=== PATIENT | female | born 1990 | race Caucasian/White ===

== ENCOUNTER 2019-02-28 09:18 | Outpatient (CLI) | payer MEDICAID | END 2019-02-28 09:19 | disposition critical access hospital (66) | LOC: EMS 09:18 | PROVIDERS: ATTEND Surgery | DX: R50.9 Fever, unspecified (principal); R04.2 Hemoptysis | CPT/HCPCS: A0425; A0429; A0999 ==

== ENCOUNTER 2019-02-28 09:37 | Inpatient (IN) | payer MEDICAID ==
[2019-02-28] MEDS ORDERED: SODIUM CHLORIDE 0.9% 1,000 ML IV ONE ×3 (09:49→15:22)
--- NOTE | 2019-02-28 09:59 | ED Physician Documentation ---
History of Present Illness - Stated complaint Stated Complaint: N/V - Chief complaint Chief Complaint: General - History obtained from History obtained from: Patient, EMS - History of Present Illness Timing: Last night Pain level max: 8 Pain level now: 8 Improved by: rest Worsened by: moving, coughing - Additonal information Additional information: 28-year-old female presents to the emergency department stating that she had a fever last night, coughing and sore throat today. Nausea, posttussive emesis and has abdominal pain now. She states that she may be she is unsure. No diarrhea. No constipation. No vaginal bleeding or discharge. Review of Systems Constitutional: reports: Fever, Chills Cardiac: denies: Chest pain / pressure GI: denies: Diarrhea Skin: denies: Rash Musculoskeletal: denies: Neck pain, Back pain Neurologic: denies: Focal weakness, Numbness, Seizure, Confused, Headache PD PAST MEDICAL HISTORY - Past Medical History Past Medical History: Yes Psych: Depression, Anxiety, Bipolar disorder - Past Surgical History Past Surgical History: Yes HEENT: Tonsil/Adenoidectomy - Present Medications Home Medications: Ambulatory Orders Medication Instructions Recorded Confirmed Ondansetron Odt [Zofran] 4 mg TL Q6H PRN #10 tablet 01/02/15 - Allergies Allergies/Adverse Reactions: Allergies Allergy/AdvReac Type Severity Reaction Status Date / Time lamotrigine [From Lamictal] Allergy Rash Verified 01/02/15 19:47 - Living Situation Living Arrangement: reports: At home - Social History Does the pt smoke?: No Smoking Status: Never smoker Does the pt drink ETOH?: No Does the pt have substance abuse?: No - Family History Family history: reports: Non contributory - Immunizations Immunizations are current?: Yes - POLST Patient has POLST: No PD ED PE NORMAL - Vitals Vital signs reviewed: Yes - General General: Alert and oriented X 3, No acute distress, Well developed/nourished - HEENT HEENT: PERRL, Ears normal, Moist mucous membranes, Other (Mild posterior oropharyngeal erythema without tonsillar exudates. Uvula midline. No trismus. Normal phonation) - Neck Neck: Supple, no meningeal sign, No bony TTP, No adenopathy - Cardiac Cardiac: RRR, Strong equal pulses - Respiratory Respiratory: No respiratory distress, Clear bilaterally - Abdomen Abdomen: Soft, Non distended, Other (Soft mildly tender diffusely, no peritoneal signs) - Back Back: No spinal TTP - Derm Derm: Warm and dry - Extremities Extremities: No edema, No calf tenderness / cord - Neuro Neuro: Alert and oriented X 3 - Psych Psych: Normal mood, Normal affect Results - Vitals Vitals: Vital Signs - 24 hr 02/28/19 02/28/19 02/28/19 09:40 12:22 12:49 Temperature 37.5 C 37.8 C H Heart Rate 78 123 H 104 H Respiratory 18 20 18 Rate Blood Pressure 124/86 H 107/62 116/67 O2 Saturation 99 99 97 02/28/19 02/28/19 14:18 16:00 Temperature Heart Rate 108 H 87 Respiratory 18 18 Rate Blood Pressure 97/63 120/84 H O2 Saturation 95 97 Oxygen O2 Source Room air - Labs Labs: Laboratory Tests 02/28/19 02/28/19 02/28/19 09:50 09:50 09:50 WBC 16.8 H RBC 4.52 Hgb 13.2 Hct 40.4 MCV 89.4 MCH 29.3 MCHC 32.8 RDW 14.8 Plt Count 257 MPV 7.5 L Neut # (Auto) 15.6 H Lymph # (Auto) 0.6 L [place] # (Auto) 0.6 Eos # (Auto) 0.0 Baso # (Auto) 0.0 Absolute Nucleated RBC 0.00 Nucleated RBC % 0.0 Sodium 135 Potassium 3.5 Chloride 99 L Carbon Dioxide 26 Anion Gap 10.0 BUN 11 Creatinine 0.7 Estimated GFR (MDRD) 100 Glucose 106 H Lactic Acid Calcium 8.9 Total Bilirubin 0.7 AST 29 ALT 23 Alkaline Phosphatase 72 Total Protein 7.5 Albumin 4.7 Globulin 2.8 Albumin/Globulin Ratio 1.7 Lipase 33 Serum HCG, Qual NEGATIVE Urine Color Urine Clarity Urine pH Ur Specific [place] Urine Protein Urine Glucose (UA) Urine Ketones Urine Occult Blood Urine Nitrite Urine Bilirubin Urine Urobilinogen Ur Leukocyte Esterase Ur Microscopic Review Urine Culture Comments Group A Strep Rapid 02/28/19 02/28/19 02/28/19 09:50 11:25 16:30 WBC RBC Hgb Hct MCV MCH MCHC RDW Plt Count MPV Neut # (Auto) Lymph # (Auto) [place] # (Auto) Eos # (Auto) Baso # (Auto) Absolute Nucleated RBC Nucleated RBC % Sodium Potassium Chloride Carbon Dioxide Anion Gap BUN Creatinine Estimated GFR (MDRD) Glucose Lactic Acid 0.8 Calcium Total Bilirubin AST ALT Alkaline Phosphatase Total Protein Albumin Globulin Albumin/Globulin Ratio Lipase Serum HCG, Qual Urine Color YELLOW Urine Clarity CLEAR Urine pH 7.5 Ur Specific [place] 1.015 Urine Protein NEGATIVE Urine Glucose (UA) NEGATIVE Urine Ketones TRACE Urine Occult Blood NEGATIVE Urine Nitrite NEGATIVE Urine Bilirubin NEGATIVE Urine Urobilinogen 1 (NORMAL) Ur Leukocyte Esterase NEGATIVE Ur Microscopic Review NOT INDICATED Urine Culture Comments NOT INDICATED Group A Strep Rapid Negative - Rads (name of study) CT abd/pelvis Radiology: Prelim report reviewed, EMP read contemporaneously, See rad report (Malpositioned IUD) PD MEDICAL DECISION MAKING - ED course Complexity details: reviewed results, re-evaluated patient, considered differential, d/w patient ED course: 28-year-old female presents to the emergency department with fevers, coughing sore throat and abdominal pain. Initially concern for possible appendicitis given her leukocytosis and abdominal pain, there appears to be a malpositioned IUD in the uterus with possible perforation. Given IV antibiotics and contacted Dr. Gillette, gynecology retail personal banker who will come and evaluate the patient when he is done in the OR. Dr. Gillette to take the patient to the OR, concern for perforated uterus. This document was made in part using voice recognition software. While efforts are made to proofread this document, sound alike and grammatical errors may occur. Departure - Departure Disposition: ED Transfer to [facility] Clinical Impression: Fever Qualifiers: Fever type: unspecified Qualified Code(s): R50.9 - Fever, unspecified Malpositioned IUD Qualifiers: Encounter type: initial encounter Qualified Code(s): T83.32XA - Displacement of intrauterine contraceptive device, initial encounter Condition: Stable Discharge Date/Time: 02/28/19 17:07
[2019-02-28 10:04] LABS: BASOPHILS % (AUTO) 0.2 %; EOSINOPHILS % (AUTO) 0.2 %; HGB - HEMOGLOBIN 13.2 g/dL (12.0-16.0); LYMPHOCYTES # (AUTO) 0.6 10^3/uL (1.5-3.5); LYMPHOCYTES % (AUTO) 3.3 %; MEAN CORPUSCULAR HEMOGLOBIN 29.3 pg (27.0-31.0); MEAN CORPUSCULAR HGB CONC 32.8 g/dL (32.0-36.0); MEAN CORPUSCULAR VOLUME 89.4 fL (81.0-99.0); MEAN PLATELET VOLUME 7.5 fL (7.9-10.8); MONOCYTES # (AUTO) 0.6 10^3/uL (0.0-1.0); MONOCYTES % (AUTO) 3.4 %; NEUTROPHILS # (AUTO) 15.6 10^3/uL (1.5-6.6); NEUTROPHILS % (AUTO) 92.9 %; PLT - PLATELET COUNT 257 10^3/uL (130-450); RED BLOOD COUNT 4.52 10^6/uL (4.20-5.40); RED CELL DISTRIBUTION WIDTH 14.8 % (12.0-15.0); WHITE BLOOD COUNT 16.8 x10^3/uL (4.8-10.8)
[2019-02-28 10:22] LABS: ALBUMIN 4.7 g/dL (3.2-5.5); ALBUMIN/GLOBULIN RATIO 1.7 (1.0-2.2); BILIRUBIN,TOTAL 0.7 mg/dL (0.2-1.0); CALCIUM 8.9 mg/dL (8.5-10.3); CREATININE 0.7 mg/dL (0.4-1.0); TOTAL PROTEIN 7.5 g/dL (6.7-8.2)
[2019-02-28] MEDS ORDERED: ONDANSETRON 4 MG/2 ML VIAL IVP STA ×2 (10:35→12:28)
[2019-02-28] MEDS ORDERED: MORPHINE 2 MG/ML SYRINGE IVP STA (10:35)
[2019-02-28 10:44] LABS: HCG,QUALITATIVE BLOOD NEGATIVE
[2019-02-28 11:37] LABS: BILIRUBIN,URINE NEGATIVE (NEGATIVE); GLUCOSE, URINE (UA) NEGATIVE (NEGATIVE); KETONES,URINE (UA) TRACE mg/dL (NEGATIVE); LEUKOCYTE ESTERASE, URINE NEGATIVE (NEGATIVE); NITRITE,URINE NEGATIVE (NEGATIVE); OCCULT BLOOD,URINE NEGATIVE (NEGATIVE); PH,URINE 7.5 PH (5.0-7.5); PROTEIN,URINE NEGATIVE (NEGATIVE); UROBILINOGEN,URINE 1 (NORMAL) E.U./dL (NORMAL)
[2019-02-28 11:39] LABS: CLARITY,URINE CLEAR (CLEAR)
--- NOTE | 2019-02-28 11:57 | XRAY Report ---
Reason: cough Procedure Date: 02/28/2019 Accession Number: [id number] / [id number] Procedure: XR - Chest 2 View X-Ray CPT Code: 94234 FULL RESULT: EXAM: CHEST RADIOGRAPHY EXAM DATE: 02/28/2019 11:01 AM. CLINICAL HISTORY: Cough. COMPARISON: CHEST 2 VIEW PA/LAT 12/14/2014 4:27 PM. TECHNIQUE: 2 views. FINDINGS: Lungs/Pleura: No focal opacities evident. No pleural effusion. No pneumothorax. Normal volumes. Mediastinum: Heart and mediastinal contours are unremarkable. Other: The bones are qualitatively osteopenic; this limits evaluation for underlying fractures or masses. IMPRESSION: No acute cardiopulmonary abnormality. RADIA
[2019-02-28] MEDS ORDERED: HYDROmorphone 1 MG/ML CARPUJECT IVP STA ×4 (12:28→16:14)
[2019-02-28] MEDS ORDERED: IOVERSOL 320 100 ML VIAL IVP ONE (12:50)
[2019-02-28] MEDS: KETOROLAC 30 MG/ML VIAL IVP STA ×2 (13:37→13:40)
[2019-02-28] MEDS ORDERED: PIPERACILLIN/TAZOBACTAM 4.5 GM in SODIUM CHLORIDE 0.9% MINIBAG 100 ML IV STA (13:42)
--- NOTE | 2019-02-28 13:43 | CT Report ---
Reason: RLQ abd pain Procedure Date: 02/28/2019 Accession Number: [id number] / [id number] Procedure: CT - Abdomen/Pelvis W CPT Code: FULL RESULT: EXAM: CT ABDOMEN AND PELVIS EXAM DATE: 02/28/2019 01:08 PM. CLINICAL HISTORY: Right lower quadrant abdominal pain. COMPARISONS: None. TECHNIQUE: Routine helical CT imaging was performed through the abdomen and pelvis. IV contrast: 100 mL Optiray 320. Enteric contrast: No. Reconstructions: Coronal and sagittal. In accordance with CT protocol optimization, one or more of the following dose reduction techniques were utilized for this exam: automated exposure control, adjustment of mA and/or KV based on patient size, or use of iterative reconstructive technique. FINDINGS: Lung Bases: Unremarkable. Liver: Normal. No masses. Gallbladder/Bile Ducts: Status post cholecystectomy with not unexpected prominence of the intrahepatic and extrahepatic biliary ductal system. Spleen: Normal. Pancreas: Normal. Adrenal Glands: Normal. Kidneys: Normal. No masses or hydronephrosis. Peritoneal Cavity/Bowel: No bowel obstruction. No free fluid, free air or adenopathy. No masses or acute inflammatory process. The appendix is not definitely visualized. Pelvic Organs: The intrauterine device is malpositioned with the long stem portion lodged within the myometrial wall and there is surrounding increased enhancement, hyperemia versus bleeding. Portions of the intrauterine device reached the subserosal layer, but there is no definite protrusion past the outer confines of the uterine body and there is no definite nearby abscess or free air. Vasculature: No aneurysms or other significant abnormality. Bones: No significant abnormality. Other: None. IMPRESSION: Malpositioned IUD. CRITICAL RESULT: The findings were discussed with Dr. Lozoya on 02/28/2019 at 1:30 PM. REGGIE
[2019-02-28] MEDS ORDERED: LACTATED RINGERS 1,000 ML IV STA (15:22)
--- NOTE | 2019-02-28 16:10 | ANESTHESIA ---
Pre-Anesthesia VS, & Labs - Diagnosis N/V, Abdominal pain - Procedure Hysteroscopy, possible laparotomy Vital Signs: Temp Pulse Resp BP Pulse Ox 37.8 C H 108 H 18 97/63 95 02/28/19 12:22 02/28/19 14:18 02/28/19 14:18 02/28/19 14:18 02/28/19 14:18 Height 5 ft 2 in Weight (kg) 52.163 kg Body Mass Index 21.0 - NPO >8 hours - Is Patient ?: No (-HCG 02/28) - Lab Results Current Lab Results: Laboratory Tests 02/28/19 09:50: Serum HCG, Qual NEGATIVE 02/28/19 09:50: Sodium 135, Potassium 3.5, Chloride 99 L, Carbon Dioxide 26, Anion Gap 10.0, BUN 11, Creatinine 0.7, Estimated GFR (MDRD) 100, Glucose 106 H, Calcium 8.9, Total Bilirubin 0.7, AST 29, ALT 23, Alkaline Phosphatase 72, Total Protein 7.5, Albumin 4.7, Globulin 2.8, Albumin/Globulin Ratio 1.7, Lipase 33 02/28/19 09:50: WBC 16.8 H, RBC 4.52, Hgb 13.2, Hct 40.4, MCV 89.4, MCH 29.3, MCHC 32.8, RDW 14.8, Plt Count 257, MPV 7.5 L, Neut # (Auto) 15.6 H, Lymph # (Auto) 0.6 L, [place] # (Auto) 0.6, Eos # (Auto) 0.0, Baso # (Auto) 0.0, Absolute Nucleated RBC 0.00, Nucleated RBC % 0.0 Fish Bones: 02/28/19 09:50 02/28/19 09:50 Home Medications and Allergies Active Medications Lactated Ringer's (Lr) 1,000 mls @ 150 mls/hr IV .Q6H40M STA Stop: 02/28/19 22:01 Last Admin: 02/28/19 15:33 Dose: 150 mls/hr Allergies/Adverse Reactions: Allergies Allergy/AdvReac Type Severity Reaction Status Date / Time lamotrigine [From Lamictal] Allergy Rash Verified 01/02/15 19:47 Anes History & Medical History - Anesthetic History Anesthesia Complications: reports: No previous complications Family history of Anesthesia Complications: Denies Family history of Malignant Hyperthermia: Denies - Medical History Cardiovascular: reports: None Pulmonary: reports: Asthma Gastrointestinal: reports: Other (recent N/V) Urinary: reports: None Smoking Status: Never smoker Other Past Medical History: cutter - Surgical History General: Cholecystectomy Eyes Ears Nose Throat (EENT): Tonsil/Adenoidectomy Exam General: Alert, Oriented x3 Dental: WNL, Other (currently has msore throat) Mouth Openin Fingerbreadth Neck Mobility: Normal Mallampati classification: II Thyromental Distance: 4-6 cm Respiratory: Lungs clear, Normal breath sounds, No respiratory distress, No accessory muscle use Cardiovascular: Regular rate Neurological: Normal speech Mental/Cognitive Status: Alert/Oriented X3, Normal for patient Cognitive Status: Within normal limits Plan Anesthesia Type: General Consent for Procedure(s) Verified and Reviewed: Yes Code Status: Attempt Resuscitation ASA classification: 2-Mild systemic disease Is this case an emergency?: Yes
[2019-02-28] MEDS ORDERED: LIDOCAINE-MPF 2% 5 ML VIAL IM ONE (16:55)
[2019-02-28] MEDS ORDERED: NEOSTIGMINE 1 MG/1 ML 10 ML MDV IVP ONE (16:55)
[2019-02-28] MEDS ORDERED: ROCURONIUM 50 MG/5 ML VIAL IVP ONE (16:55)
[2019-02-28] MEDS ORDERED: MIDAZOLAM 2 MG/2 ML VIAL IVP ONE (16:55)
[2019-02-28] MEDS ORDERED: ONDANSETRON 4 MG/2 ML VIAL IVP ONE (16:55)
[2019-02-28] MEDS ORDERED: PROPOFOL 200 MG/20 ML VIAL IVP ONE (16:55)
[2019-02-28] MEDS ORDERED: DEXAMETHASONE 4 MG/ML VIAL IVP ONE (16:55)
[2019-02-28] MEDS ORDERED: GLYCOPYRROLATE 1 MG/5 ML VIAL IVP ONE (16:55)
[2019-02-28] MEDS ORDERED: ACETAMINOPHEN 1,000 MG/100 ML 100 ML IV ONE (16:55)
[2019-02-28] MEDS ORDERED: fentaNYL 100 MCG/2 ML VIAL IVP ONE (16:55)
[2019-02-28] MEDS ORDERED: LACTATED RINGERS 500 ML IV ONE (16:55)
[2019-02-28] MEDS ORDERED: BUPIVACAINE 0.25%-EPI 1:200000 PF 30 ML VIAL ONE ×2 (17:18→17:56)
[2019-02-28] MEDS ORDERED: LACTATED RINGERS 1,000 ML IV ONE ×2 (17:37→19:01)
[2019-02-28] MEDS ORDERED: BUPIVACAINE 0.25%-EPI 1:200000 PF 10 ML VIAL SUBQ ONE (17:45)
[2019-02-28] MEDS ORDERED: BUPIVACAINE 0.25%-EPI 1:200000 PF 30 ML VIAL SUBQ ONE ×2 (18:02)
--- NOTE | 2019-02-28 19:19 | OPERATIVE REPORT ---
Operative Report - General Procedure Date: 02/28/19 Planned Procedure: Hysterscopy removal of the Mirena, Laprocsopy Pre-Op Diagnosis: Abdominal Pain Mal placed IUD R/O perforation Procedure Performed: Hysterscopic removal of Mirena IUD, Laproscopy. Post Op Diagnosis: Same - Procedure Note Primary Surgeon: heather Gillette MD Anesthesia Provider: Rosie Flores CRNA Anesthesia Technique: General ET tube Pathology: None IV Fluids (mL): 1,100 Estimated Blood Loss (mL): 10 Urine Output (mL): 450 Findings: IUD was crossed placed in the uterus. Arm in direct contact with the [place]. - Other Other Information/Narrative: [id number]
[2019-02-28] MEDS ORDERED: PIPERACILLIN/TAZOBACTAM 4.5 GM in SODIUM CHLORIDE 0.9% MINIBAG 100 ML IV SCH (20:00)
[2019-02-28] MEDS ORDERED: LACTATED RINGERS 1,000 ML IV SCH (20:00)
[2019-02-28] MEDS: ACETAMINOPHEN 500 MG TABLET PO SCH (20:51)
[2019-02-28] MEDS: KETOROLAC 30 MG/ML VIAL IVP SCH (20:52)
[2019-02-28] MEDS: oxyCODONE 5 MG TABLET PO PRN (21:47)
[2019-02-28] MEDS: SIMETHICONE CHEW 80 MG TABLET PO SCH (22:42)
[2019-02-28] MEDS: DOCUSATE SODIUM 100 MG CAPSULE PO SCH (22:42)
[2019-02-28] MEDS: PIPERACILLIN/TAZOBACTAM 4.5 GM in SODIUM CHLORIDE 0.9% MINIBAG 100 ML IV SCH (22:43)
[2019-02-28] MEDS ORDERED: SODIUM CHLORIDE FLUSH 0.9% 10 ML SYRINGE ONE (22:54)
--- NOTE | 2019-02-28 23:59 | CONSULTATION NOTE ---
Referring Provider Name of Referring Provider:: Dr Ivan Mustafa Consult Date: 02/28/19 (Medical Management: Leukocytosis) Chief Complaint - Chief Complaint Chief Complaint: generaized bodyaches History of Present Illness - Admitted From Admitted From:: [facility] ED - History Obtained From Records Reviewed: yes History obtained from: patient - History of Present Illness HPI Comment/Other: Patient seen on 02/28/19 at 21:45pm Patient is a 28 y/o female who presented to the ED with complain of tenderness all over her body. She thought she was having a flu. She described stuffy nose, cough, shaking and fever. Her symptoms started 3 days ago. It progressively worsened to the point that she could not take care of her children because she was having a hard time walking. She also reports that it felt like her lungs were burning. In the ED she was noted to have a temperature of 37.8C and a WBC of 16. Work up also included a CT of the abd/pelvis. It was noted that her IUD had moved and was near the edge of the uterus. A concern was also raised of a possible perforation. As a result she was taken to the OR. We are being consulted for medical management in light of leukocytosis History - Past Medical History Cardiovascular: reports: None Respiratory: reports: Asthma Neuro: reports: None GI: reports: None, Other : reports: None Psych: reports: Depression, Anxiety, Bipolar disorder Musculoskeletal: reports: None Other Past Medical History: cutter - Past Surgical History General: reports: Cholecystectomy HEENT: reports: Tonsil/Adenoidectomy - Family & Social History Family History: Other family: Diabetes, Type 2 (Extensively on paternal side), Hypertension Family History Comment/Other: Paternal grandfather had a CVA Living arrangement: At home Living Situation: With family Social History Notes: Patient smokes about 1/4 to 1/2 a ppd. Occasional alcohol ue. No illicit drugs - Substance History Tobacco Details: Cigarettes - POLST Patient has POLST: No POLST Status: Full Code Meds/Allgy - Home Medications Home Medications: Ambulatory Orders Medication Instructions Recorded Confirmed Ondansetron Odt [Zofran] 4 mg TL Q6H PRN #10 tablet 01/02/15 - Allergies Allergies/Adverse Reactions: Allergies Allergy/AdvReac Type Severity Reaction Status Date / Time lamotrigine [From Lamictal] Allergy Rash Verified 01/02/15 19:47 Review of Systems - Constitutional Constitutional: reports: Fatigue, Fever, Chills - Eyes Eyes: denies: Vision loss, Dipolpia - Ears, Nose & Throat Ears, Nose & Throat: reports: Nasal congestion. denies: Vertigo - Cardiovascular Cariovascular: denies: Irregular heart rate, Chest pain, Edema, Syncope, Exertional dyspnea - Respiratory Respiratory: reports: Cough, Sputum production, Pleuritic pain. denies: Wheezing, SOB with exertion - Gastrointestinal Gastrointestinal: reports: Abdominal pain, Nausea, Vomiting. denies: Abdominal distention, Diarrhea, Coffee grounds emesis, Reflux/heartburn - Genitourinary Genitourinary: denies: Dysuria, Frequency, Urgency, Hematuria - Musculoskeletal Musculoskeletal: reports: Muscle pain. denies: Stiffness, Joint swelling - Integumentary Integumentary: denies: Rash, Pruritis, Dryness - Neurological Neurological: denies: General weakness, Focal weakness, Headache, Dizziness - Psychiatric Psychiatric: denies: Depression, Anxiety - Endocrine Endocrine: denies: Polyuria, Polydypsia - Hematologic/Lymphatic Hematologic/Lymphatic: denies: Anemia, Bruising, Petechiae Exam - Vital Signs Vital Signs: Vital Signs x48h Temp Pulse Pulse Resp BP BP Pulse Ox 02/28/19 21:30 36.8 C 76 18 113/70 100 02/28/19 20:20 36.6 C 106 H 18 109/79 100 02/28/19 19:40 36.4 C L 66 18 115/74 98 02/28/19 19:35 36.8 C 92 16 112/78 96 02/28/19 19:20 36.8 C 75 95 H 123/87 H 10 L 02/28/19 19:10 81 10 L 106/72 95 02/28/19 19:00 36.9 C 83 10 L 110/72 100 02/28/19 18:55 36.5 C 82 12 124/72 100 02/28/19 18:50 77 12 116/73 100 02/28/19 18:45 36.7 C 87 12 119/88 H 100 02/28/19 18:40 92 13 127/75 100 02/28/19 18:35 82 8 L 129/66 100 02/28/19 18:32 36.9 C 88 11 L 123/71 100 02/28/19 16:00 87 18 120/84 H 97 - Physical Exam General Appearance: positive: Alert, Moderate distress Eyes Bilateral: positive: Normal inspection, PERRL, EOMI ENT: positive: ENT inspection nml, No signs of dehydration Neck: positive: Nml inspection, No JVD, Trachea midline Respiratory: positive: Chest non-tender, No respiratory distress. negative: Wheezes, Rales, Rhonchi Cardiovascular: positive: Regular rate & rhythm. negative: No murmur, Tachycardia Abdomen: positive: No distention, Tenderness, Guarding, Rebound Back: positive: Nml inspection Skin: positive: Color nml, Warm, Dry. negative: No rash, Cyanosis, Diaphoresis Extremities: positive: Non-tender, Full ROM, Nml appearance, No pedal edema Neurologic/Psychiatric: positive: Oriented x3, Motor nml, Sensation nml Conclusion/Plan - Plan Plan: 1. Leukocytosis Reactive vs Infectious CXR and UA unremarkable Skin negative for infection Mal-positioned IUD removed Blood and throat cultures pending Patient started on Zosyn. Will continue Pain management with toradol and oxycodone - Lab Results Fish Bones: 02/28/19 09:50 02/28/19 09:50 - Diagnostic Imaging Results Diagnostic Imaging Results: positive: Final report reviewed
[2019-03-01] MEDS: KETOROLAC 30 MG/ML VIAL IVP SCH ×4 (02:12→19:48)
--- NOTE | 2019-03-01 02:57 | OPERATIVE REPORT ---
DATE OF SERVICE: 02/28/2019 Physician: Ivan Gillette MD PREOPERATIVE DIAGNOSES: Abdominal pain, malplaced intrauterine device, rule out perforation. POSTOPERATIVE DIAGNOSES: Abdominal pain, malplaced intrauterine device, no evidence of perforation, normal appendix. PROCEDURE PERFORMED: Hysteroscopy, with removal of intrauterine device, laparoscopy. SURGEON: Ivan Gillette MD. JUNIOR FINANCIAL ANALYST: Catie Flores CRNA. ANESTHESIA TYPE: General via endotracheal tube. INTRAVENOUS FLUIDS: 1100 mL ESTIMATED BLOOD LOSS: 10 mL URINE OUTPUT: 515 mL FINDINGS: Upon entering the uterine cavity, the IUD was transverse in the uterine cavity. One of the arms was directly engaged in the cornu. The strings were noted to be in place as well as coming outside the cervix. Laparoscopically, the pelvis appeared to be free of disease. There was no evidence of adhesions, tubes appeared to be normal, the appendix appeared to be normal. Dr. Laboy intraoperatively consulted and viewed the appendix and shared that this was without evidence of an appendicitis. The gallbladder was surgically absent. DESCRIPTION OF PROCEDURE: Following adequate endotracheal anesthesia, patient was placed in the dorsal lithotomy position in [facility]. At this point, she was prepped and draped in the usual fashion. A timeout was performed, at which time, the concerns were addressed; the possibility of a perforation with possible need for laparotomy. A speculum was placed in the vagina. The cervix was visualized, grasped with a single-tooth tenaculum. It was then dilated up to a size 6 mm, and then a MyoSure hysteroscope was introduced. The entire endometrial cavity was visualized. The IUD was noted to be residing transversely in the uterus. It was somewhat bent in its configuration. The remainder of the endometrial cavity was without evidence of any polyps or fibroids. The string was then grasped and removed. The hysteroscope was reintroduced, and there was no evidence of any bleeding or other injuries. At this point, because of concerns about possible uterine or abdominal injuries, a HUMI catheter was then placed in the uterus following dilating up to 8 mm. The steam roller operator's gloves were changed, and then following local anesthesia with 0.25% Marcaine, a vertical incision was made with a #11 blade. A 5 mm trocar and sheath were introduced directly under visualization into the abdominal cavity. There was no evidence of any injury at site of insertion. The entire pelvis was inspected. There was evidence of a bloody serous material in the cul-de-sac; this was felt to be probably fluid coming from the hysteroscopy. Tubes and ovaries all appeared to be free of disease and adhesions. The appendix was carefully inspected. It did not either show evidence of any kind of adhesive disease. The remainder of the abdominal cavity was unremarkable. Dr. Laboy came and viewed the appendix and felt that it was normal and did not need to be removed. At this point, the procedure was terminated. The 5 mm trocar was removed from the right lower quadrant. There was no evidence of any bleeding. The laparoscope was removed, and the CO2 was allowed to escape as much as possible. At this point, the sheath was removed, and the incisions were both closed using 4-0 Monocryl and with Dermabond being placed. At this point, the HUMI catheter was removed from the uterus. Patient tolerated the procedure well and was taken to recovery in stable condition. Sponge and needle counts were correct. TD: 02/28/2019 19:37 POLI
[2019-03-01] MEDS: SIMETHICONE CHEW 80 MG TABLET PO SCH ×4 (04:39→22:01)
[2019-03-01] MEDS: ACETAMINOPHEN 500 MG TABLET PO SCH ×3 (04:39→19:47)
[2019-03-01] MEDS ORDERED: BENZOCAINE/MENTHOL LOZENGE MM PRN (04:40)
[2019-03-01] MEDS: oxyCODONE 5 MG TABLET PO PRN ×4 (04:56→22:01)
[2019-03-01 04:59] LABS: BASOPHILS % (AUTO) 0.2 %; EOSINOPHILS % (AUTO) 0.1 %; HGB - HEMOGLOBIN 11.3 g/dL (12.0-16.0); LYMPHOCYTES # (AUTO) 0.6 10^3/uL (1.5-3.5); MEAN CORPUSCULAR HEMOGLOBIN 29.9 pg (27.0-31.0); MEAN CORPUSCULAR HGB CONC 33.1 g/dL (32.0-36.0); MEAN CORPUSCULAR VOLUME 90.3 fL (81.0-99.0); MEAN PLATELET VOLUME 7.8 fL (7.9-10.8); MONOCYTES # (AUTO) 0.3 10^3/uL (0.0-1.0); MONOCYTES % (AUTO) 4.9 %; NEUTROPHILS % (AUTO) 86.8 %; PLT - PLATELET COUNT 202 10^3/uL (130-450); RED BLOOD COUNT 3.77 10^6/uL (4.20-5.40); RED CELL DISTRIBUTION WIDTH 14.6 % (12.0-15.0)
[2019-03-01] MEDS: PIPERACILLIN/TAZOBACTAM 4.5 GM in SODIUM CHLORIDE 0.9% MINIBAG 100 ML IV SCH ×3 (05:00→19:49)
[2019-03-01 05:08] LABS: CALCIUM 8.3 mg/dL (8.5-10.3); CREATININE 0.6 mg/dL (0.4-1.0)
--- NOTE | 2019-03-01 07:42 | PREOP HISTORY & PHYSICAL ---
DATE OF SERVICE: 02/28/2019 Physician: Ivan Gillette MD IDENTIFICATION: Patient is a 28-year-old G3, P2, AB1, female whose last menstrual period was 3 years ago when she had a Mirena IUD placed. CHIEF COMPLAINT: Pain and fever. HISTORY OF PRESENT ILLNESS: Patient states that last evening, she developed chills and fevers. Yest erday she felt somewhat achy. She has not been able to take a temperature at home, thus cannot give me any numbers. She developed abdominal pain, which has been going on for the last 2 months. It has become progressively worse with time. Initially started low in the pelvis and now has risen to most of the abdomen. She has a history of having an IUD placed 3 years ago. She denies any history of a [place] appendicitis. She states that she had sex roughly 1 week ago without any kind of discomfort. She checks monthly for the IUD strings and feels them present. PAST MEDICAL HISTORY: Positive for anemia. PAST SURGICAL HISTORY: Laparoscopic cholecystectomy, tonsillectomy, and adenoidectomy. CURRENT MEDICATIONS: None. She has received Zosyn in the ED. ALLERGIES: LAMICTAL. HABITS: Patient smokes 10 cigarettes per day. Denies the use of street addictive drugs. Does occas ional THC as well as alcohol. SOCIAL HISTORY: Patient is and lives with significant other's as well as a child. 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 FAMILY HISTORY: Positive for diabetes, hypertension, as well as mental illness. PHYSICAL EXAMINATION VITAL SIGNS: Temperature is 37.8, pulse 128, blood pressure 107/62, respirations 20, saturating 99% on room air. GENERAL: Patient is somewhat crying, very apprehensive, and has a moderate amount of pain at this pa rticular time. She complains of generalized aches and pains, particularly worse in the abdomen. HEENT: Pupils are equal and round. Extraocular muscles are intact. Thyroid is not palpably enlarge d. HEART: Regular rate and rhythm without murmurs. LUNGS: Whaley are clear without rales or wheezes. ABDOMEN: Patient has marked right flank tenderness. She also has lower abdominal tenderness, partic ularly in the lower pelvis, possibly right lower quadrant. Bowel sounds are present. PELVIC: Examination shows normal external genitalia. She has a white discharge. Cultures were take n for GC, chlamydia. Internal examination is about 1+ tender. There is some cervical motion tendern ess as well as left adnexal tenderness. DIAGNOSTIC DATA: Patient had a CT which shows evidence of an IUD, which appears right at the edge of the uterus. The shaft appears to be going transverse in the uterine cavity. Her appendix is visual ized and felt to be normal. LABORATORY DATA: CBC shows a white count of 16.8, hemoglobin is 13.2, hematocrit is 20.4, platelets are 253. She does have a shift left. Electrolytes are within normal limits. IMPRESSION: Chills, fevers, temperature, possible abdominal origin, in view of the fact that the IUD appears to be very near the edge of the myometrium, possible perforation. We will perform hysterosc opy, removal of the IUD, as well as diagnostic laparoscopy, looking for potential etiologies for her chills and fevers. Patient will continue with her Zosyn. TD: 02/28/2019 16:38
[2019-03-01] MEDS: DOCUSATE SODIUM 100 MG CAPSULE PO SCH ×2 (08:30→20:10)
--- NOTE | 2019-03-01 08:57 | PROVIDER PROGRESS NOTE ---
Subjective - General Admit Date: 02/28/19 Procedure Date: 02/28/19 Post Op Days: 1 Procedure Performed: Hysterscopy removal of IUD, Dx laproscopy - Review of Systems Wound/Incisions: positive: Healing well General: positive: Other (myalgia) Pulmonary: positive: Cough, Sputum (parsons to green) Cardiovascular: positive: No symptoms Gastrointestinal: positive: No symptoms Genitourinary: positive: No symptoms (hopkins out) Objective - Patient Data Reviewed Vital Signs: Yes Vital Signs: Vital Signs x48h Temp Pulse Pulse Resp BP Pulse Ox 03/01/19 05:45 36.4 C L 70 16 100 03/01/19 04:59 36.4 C L 70 16 104/66 100 Weight: Weight 02/27/19 02/28/19 03/01/19 23:59 23:59 23:59 Weight (kg) 52.16 kg Intake & Output: Intake and Output Totals x24h 02/27/19 02/28/19 03/01/19 23:59 23:59 23:59 Intake Total 3100.00 1050 Output Total 400 600 Balance 2700.00 450 - Lab Results Lab Results: 03/01/19 04:35 03/01/19 04:35 Other Lab Results: Lab Results x24hrs 03/01/19 03/01/19 02/28/19 Range/Units 04:35 04:35 16:55 WBC 7.0 (4.8-10.8) x10^3/uL RBC 3.77 L (4.20-5.40) 10^6/uL Hgb 11.3 L (12.0-16.0) g/dL Hct 34.1 L (37.0-47.0) % MCV 90.3 (81.0-99.0) fL MCH 29.9 (27.0-31.0) pg MCHC 33.1 (32.0-36.0) g/dL RDW 14.6 (12.0-15.0) % Plt Count 202 (130-450) 10^3/uL MPV 7.8 L (7.9-10.8) fL Neut # (Auto) 6.0 (1.5-6.6) 10^3/uL Lymph # (Auto) 0.6 L (1.5-3.5) 10^3/uL [place] # (Auto) 0.3 (0.0-1.0) 10^3/uL Eos # (Auto) 0.0 (0.0-0.7) 10^3/uL Baso # (Auto) 0.0 (0.0-0.1) 10^3/uL Absolute Nucleated RBC 0.00 x10^3/uL Nucleated RBC % 0.0 /100WBC Sodium 135 (135-145) mmol/L Potassium 4.1 (3.5-5.0) mmol/L Chloride 102 (101-111) mmol/L Carbon Dioxide 26 (21-32) mmol/L Anion Gap 7.0 (6-13) BUN 7 (6-20) mg/dL Creatinine 0.6 (0.4-1.0) mg/dL Estimated GFR (MDRD) 119 (>89) Glucose 149 H (70-100) mg/dL Lactic Acid (0.5-2.2) mmol/L Calcium 8.3 L (8.5-10.3) mg/dL Total Bilirubin (0.2-1.0) mg/dL AST (10-42) IU/L ALT (10-60) IU/L Alkaline Phosphatase (42-121) IU/L Total Protein (6.7-8.2) g/dL Albumin (3.2-5.5) g/dL Globulin (2.1-4.2) g/dL Albumin/Globulin Ratio (1.0-2.2) Lipase (22-51) U/L Serum HCG, Qual Urine Color Urine Clarity (CLEAR) Urine pH (5.0-7.5) PH Ur Specific [place] (1.002-1.030) Urine Protein (NEGATIVE) mg/dL Urine Glucose (UA) (NEGATIVE) mg/dL Urine Ketones (NEGATIVE) mg/dL Urine Occult Blood (NEGATIVE) Urine Nitrite (NEGATIVE) Urine Bilirubin (NEGATIVE) Urine Urobilinogen (NORMAL) E.U./dL Ur Leukocyte Esterase (NEGATIVE) Ur Microscopic Review Urine Culture Comments Group A Strep Rapid (Negative) Blood Type Blood Type Recheck O POSITIVE Antibody Screen 02/28/19 02/28/19 02/28/19 Range/Units 16:49 16:30 11:25 WBC (4.8-10.8) x10^3/uL RBC (4.20-5.40) 10^6/uL Hgb (12.0-16.0) g/dL Hct (37.0-47.0) % MCV (81.0-99.0) fL MCH (27.0-31.0) pg MCHC (32.0-36.0) g/dL RDW (12.0-15.0) % Plt Count (130-450) 10^3/uL MPV (7.9-10.8) fL Neut # (Auto) (1.5-6.6) 10^3/uL Lymph # (Auto) (1.5-3.5) 10^3/uL [place] # (Auto) (0.0-1.0) 10^3/uL Eos # (Auto) (0.0-0.7) 10^3/uL Baso # (Auto) (0.0-0.1) 10^3/uL Absolute Nucleated RBC x10^3/uL Nucleated RBC % /100WBC Sodium (135-145) mmol/L Potassium (3.5-5.0) mmol/L Chloride (101-111) mmol/L Carbon Dioxide (21-32) mmol/L Anion Gap (6-13) BUN (6-20) mg/dL Creatinine (0.4-1.0) mg/dL Estimated GFR (MDRD) (>89) Glucose (70-100) mg/dL Lactic Acid 0.8 (0.5-2.2) mmol/L Calcium (8.5-10.3) mg/dL Total Bilirubin (0.2-1.0) mg/dL AST (10-42) IU/L ALT (10-60) IU/L Alkaline Phosphatase (42-121) IU/L Total Protein (6.7-8.2) g/dL Albumin (3.2-5.5) g/dL Globulin (2.1-4.2) g/dL Albumin/Globulin Ratio (1.0-2.2) Lipase (22-51) U/L Serum HCG, Qual Urine Color YELLOW Urine Clarity CLEAR (CLEAR) Urine pH 7.5 (5.0-7.5) PH Ur Specific [place] 1.015 (1.002-1.030) Urine Protein NEGATIVE (NEGATIVE) mg/dL Urine Glucose (UA) NEGATIVE (NEGATIVE) mg/dL Urine Ketones TRACE (NEGATIVE) mg/dL Urine Occult Blood NEGATIVE (NEGATIVE) Urine Nitrite NEGATIVE (NEGATIVE) Urine Bilirubin NEGATIVE (NEGATIVE) Urine Urobilinogen 1 (NORMAL) (NORMAL) E.U./dL Ur Leukocyte Esterase NEGATIVE (NEGATIVE) Ur Microscopic Review NOT INDICATED Urine Culture Comments NOT INDICATED Group A Strep Rapid (Negative) Blood Type O POSITIVE Blood Type Recheck Antibody Screen NEGATIVE 02/28/19 02/28/19 02/28/19 Range/Units 09:50 09:50 09:50 WBC (4.8-10.8) x10^3/uL RBC (4.20-5.40) 10^6/uL Hgb (12.0-16.0) g/dL Hct (37.0-47.0) % MCV (81.0-99.0) fL MCH (27.0-31.0) pg MCHC (32.0-36.0) g/dL RDW (12.0-15.0) % Plt Count (130-450) 10^3/uL MPV (7.9-10.8) fL Neut # (Auto) (1.5-6.6) 10^3/uL Lymph # (Auto) (1.5-3.5) 10^3/uL [place] # (Auto) (0.0-1.0) 10^3/uL Eos # (Auto) (0.0-0.7) 10^3/uL Baso # (Auto) (0.0-0.1) 10^3/uL Absolute Nucleated RBC x10^3/uL Nucleated RBC % /100WBC Sodium 135 (135-145) mmol/L Potassium 3.5 (3.5-5.0) mmol/L Chloride 99 L (101-111) mmol/L Carbon Dioxide 26 (21-32) mmol/L Anion Gap 10.0 (6-13) BUN 11 (6-20) mg/dL Creatinine 0.7 (0.4-1.0) mg/dL Estimated GFR (MDRD) 100 (>89) Glucose 106 H (70-100) mg/dL Lactic Acid (0.5-2.2) mmol/L Calcium 8.9 (8.5-10.3) mg/dL Total Bilirubin 0.7 (0.2-1.0) mg/dL AST 29 (10-42) IU/L ALT 23 (10-60) IU/L Alkaline Phosphatase 72 (42-121) IU/L Total Protein 7.5 (6.7-8.2) g/dL Albumin 4.7 (3.2-5.5) g/dL Globulin 2.8 (2.1-4.2) g/dL Albumin/Globulin Ratio 1.7 (1.0-2.2) Lipase 33 (22-51) U/L Serum HCG, Qual NEGATIVE Urine Color Urine Clarity (CLEAR) Urine pH (5.0-7.5) PH Ur Specific [place] (1.002-1.030) Urine Protein (NEGATIVE) mg/dL Urine Glucose (UA) (NEGATIVE) mg/dL Urine Ketones (NEGATIVE) mg/dL Urine Occult Blood (NEGATIVE) Urine Nitrite (NEGATIVE) Urine Bilirubin (NEGATIVE) Urine Urobilinogen (NORMAL) E.U./dL Ur Leukocyte Esterase (NEGATIVE) Ur Microscopic Review Urine Culture Comments Group A Strep Rapid Negative (Negative) Blood Type Blood Type Recheck Antibody Screen 02/28/19 Range/Units 09:50 WBC 16.8 H (4.8-10.8) x10^3/uL RBC 4.52 (4.20-5.40) 10^6/uL Hgb 13.2 (12.0-16.0) g/dL Hct 40.4 (37.0-47.0) % MCV 89.4 (81.0-99.0) fL MCH 29.3 (27.0-31.0) pg MCHC 32.8 (32.0-36.0) g/dL RDW 14.8 (12.0-15.0) % Plt Count 257 (130-450) 10^3/uL MPV 7.5 L (7.9-10.8) fL Neut # (Auto) 15.6 H (1.5-6.6) 10^3/uL Lymph # (Auto) 0.6 L (1.5-3.5) 10^3/uL [place] # (Auto) 0.6 (0.0-1.0) 10^3/uL Eos # (Auto) 0.0 (0.0-0.7) 10^3/uL Baso # (Auto) 0.0 (0.0-0.1) 10^3/uL Absolute Nucleated RBC 0.00 x10^3/uL Nucleated RBC % 0.0 /100WBC Sodium (135-145) mmol/L Potassium (3.5-5.0) mmol/L Chloride (101-111) mmol/L Carbon Dioxide (21-32) mmol/L Anion Gap (6-13) BUN (6-20) mg/dL Creatinine (0.4-1.0) mg/dL Estimated GFR (MDRD) (>89) Glucose (70-100) mg/dL Lactic Acid (0.5-2.2) mmol/L Calcium (8.5-10.3) mg/dL Total Bilirubin (0.2-1.0) mg/dL AST (10-42) IU/L ALT (10-60) IU/L Alkaline Phosphatase (42-121) IU/L Total Protein (6.7-8.2) g/dL Albumin (3.2-5.5) g/dL Globulin (2.1-4.2) g/dL Albumin/Globulin Ratio (1.0-2.2) Lipase (22-51) U/L Serum HCG, Qual Urine Color Urine Clarity (CLEAR) Urine pH (5.0-7.5) PH Ur Specific [place] (1.002-1.030) Urine Protein (NEGATIVE) mg/dL Urine Glucose (UA) (NEGATIVE) mg/dL Urine Ketones (NEGATIVE) mg/dL Urine Occult Blood (NEGATIVE) Urine Nitrite (NEGATIVE) Urine Bilirubin (NEGATIVE) Urine Urobilinogen (NORMAL) E.U./dL Ur Leukocyte Esterase (NEGATIVE) Ur Microscopic Review Urine Culture Comments Group A Strep Rapid (Negative) Blood Type Blood Type Recheck Antibody Screen - Imaging Results Radiology Imaging: positive: Final report received - Current Medications Current Medications: Current Medications Generic Name Dose Route Start Last Admin Trade Name Freq PRN Reason Stop Dose Admin Acetaminophen 1,000 mg 02/28/19 20:00 03/01/19 04:39 Tylenol PO 1,000 mg Q8H DREW Administration Docusate Sodium 100 mg 02/28/19 21:00 02/28/19 22:42 Colace 100mg Capsule PO 100 mg BID DREW Administration Piperacillin Sod/Tazobactam 100 mls @ 25 mls/hr 02/28/19 20:00 03/01/19 05:00 Sod 4.5 gm/ Sodium Chloride IV 25 mls/hr Q8H DREW Administration Sodium Chloride 1,000 mls @ 100 mls/hr 02/28/19 23:45 03/01/19 00:00 Normal Saline 0.9% IV 100 mls/hr .Q10H DREW Administration Ketorolac Tromethamine 30 mg 02/28/19 20:00 03/01/19 07:39 Toradol Inj (30mg) IVP 03/05/19 19:59 30 mg Q6H DREW Administration Oxycodone HCl 5 mg 02/28/19 19:11 03/01/19 04:56 Roxicodone PO 5 mg Q4HR PRN Administration PAIN Simethicone 80 mg 02/28/19 22:00 03/01/19 04:39 Mylicon PO 80 mg TID DREW Administration - Physical Exam Wound/Incisions: positive: Healing well, No drainage General Appearance: positive: Alert, Mild distress Respiratory: positive: Chest non-tender, No respiratory distress. negative: Wheezes, Rales Cardiovascular: positive: Regular rate & rhythm, No murmur, No gallop Abdomen: positive: No distention, Tenderness (improved from yesterday) Back: positive: CVA tenderness (R), CVA tenderness (L) Skin: positive: Color nml, No rash Extremities: negative: Calf tenderness, Jessa's sign/cords Impression/Plan - Problem List Problem List: R/O influenza
[2019-03-01] MEDS: SODIUM CHLORIDE 0.9% 1,000 ML IV SCH ×3 (09:53→11:46)
[2019-03-01] MEDS: ONDANSETRON ODT 4 MG TABLET TL PRN ×2 (13:11→20:10)
--- NOTE | 2019-03-01 13:19 | PROVIDER PROGRESS NOTE ---
Assessment/Plan - Problem List (1) Fever Qualifiers: Fever type: unspecified Qualified Code(s): R50.9 - Fever, unspecified Assessment/Plan: She has defervesced and the WBC has normalized. The cough is productive, but her lung exam is normal to auscultation and CXR was normal. She may have a viral bronchitis, or possibly bacterial in a smoker. I discussed that with the patient. I recommend sending a sputum sample for culture (ordered and done) and changing to empiric antibiotic with either po Zpak or po Augmentin and discharging later today. Discussed with Dr Mustafa. Thank you for this Consult, we will be signing off. (2) Malpositioned IUD Qualifiers: Encounter type: initial encounter Qualified Code(s): T83.32XA - Displacement of intrauterine contraceptive device, initial encounter Assessment/Plan: As per SECURITY ORDERLY management. - Current Meds Current Meds: Current Medications Generic Name Dose Route Start Last Admin Trade Name Freq PRN Reason Stop Dose Admin Acetaminophen 1,000 mg 02/28/19 20:00 03/01/19 11:45 Tylenol PO 1,000 mg Q8H DREW Administration Docusate Sodium 100 mg 02/28/19 21:00 03/01/19 08:30 Colace 100mg Capsule PO 100 mg BID DREW Administration Piperacillin Sod/Tazobactam 100 mls @ 25 mls/hr 02/28/19 20:00 03/01/19 11:48 Sod 4.5 gm/ Sodium Chloride IV 25 mls/hr Q8H DREW Administration Sodium Chloride 1,000 mls @ 100 mls/hr 02/28/19 23:45 03/01/19 11:46 Normal Saline 0.9% IV 100 mls/hr .Q10H DREW Administration Ketorolac Tromethamine 30 mg 02/28/19 20:00 03/01/19 07:39 Toradol Inj (30mg) IVP 03/05/19 19:59 30 mg Q6H DREW Administration Ondansetron HCl 4 mg 02/28/19 19:11 03/01/19 13:11 Zofran Odt TL 4 mg Q6H PRN Administration Nausea / Vomiting Oxycodone HCl 5 mg 02/28/19 19:11 03/01/19 12:36 Roxicodone PO 5 mg Q4HR PRN Administration PAIN Simethicone 80 mg 02/28/19 22:00 03/01/19 04:39 Mylicon PO 80 mg TID DREW Administration - Lab Result Fish Bone Diagrams: 03/01/19 04:35 03/01/19 04:35 - Additional Planning My Orders: My Active Orders 03/01/19 CUL, RESPIRATORY [RM] Urgent Subjective - Subjective Patient Reports: Feeling Better, Cough, Fatigue Nursing Reports: Other ([id number] phlegm) Objective Vital Signs: Vital Signs - 24 hr 02/28/19 02/28/19 02/28/19 14:18 16:00 18:32 Temperature 36.9 C Heart Rate 108 H 87 88 Heart Rate [ Brachial] Respiratory 18 18 11 L Rate Blood Pressure 97/63 120/84 H 123/71 Blood Pressure [Right Brachial artery] O2 Saturation 95 97 100 02/28/19 02/28/19 02/28/19 18:35 18:40 18:45 Temperature 36.7 C Heart Rate 82 92 87 Heart Rate [ Brachial] Respiratory 8 L 13 12 Rate Blood Pressure 129/66 127/75 119/88 H Blood Pressure [Right Brachial artery] O2 Saturation 100 100 100 02/28/19 02/28/19 02/28/19 18:50 18:55 19:00 Temperature 36.5 C 36.9 C Heart Rate 77 82 83 Heart Rate [ Brachial] Respiratory 12 12 10 L Rate Blood Pressure 116/73 124/72 110/72 Blood Pressure [Right Brachial artery] O2 Saturation 100 100 100 02/28/19 02/28/19 02/28/19 19:10 19:20 19:35 Temperature 36.8 C 36.8 C Heart Rate 81 75 92 Heart Rate [ Brachial] Respiratory 10 L 95 H 16 Rate Blood Pressure 106/72 123/87 H 112/78 Blood Pressure [Right Brachial artery] O2 Saturation 95 10 L 96 02/28/19 02/28/19 02/28/19 19:40 20:20 21:30 Temperature 36.4 C L 36.6 C 36.8 C Heart Rate Heart Rate [ 66 106 H 76 Brachial] Respiratory 18 18 18 Rate Blood Pressure Blood Pressure 115/74 109/79 113/70 [Right Brachial artery] O2 Saturation 98 100 100 03/01/19 03/01/19 03/01/19 00:05 04:59 05:45 Temperature 36.4 C L 36.4 C L Heart Rate 70 Heart Rate [ 79 70 Brachial] Respiratory 18 16 16 Rate Blood Pressure Blood Pressure 112/74 104/66 [Right Brachial artery] O2 Saturation 99 100 100 03/01/19 09:00 Temperature 36.6 C Heart Rate Heart Rate [ 71 Brachial] Respiratory 18 Rate Blood Pressure Blood Pressure 99/58 L [Right Brachial artery] O2 Saturation 98 Oxygen O2 Source Room air I&O (Last 24 Hrs): Intake and Output Totals x24h 02/27/19 02/28/19 03/01/19 23:59 23:59 23:59 Intake Total 3100.00 2150 Output Total 400 1250 Balance 2700.00 900 General: Alert, Oriented x3 HEENT: Mucous membr. moist/pink, Other (Apperas fatigued) Neck: Supple Neuro: Non Focal Cardiovascular: Regular rate, No murmurs Respiratory: No respiratory distress, Breath sounds nml Abdomen: Soft Extremities: No edema - Results Results: Laboratory Results WBC 7.0 x10^3/uL (4.8-10.8) 03/01/19 04:35 RBC 3.77 10^6/uL (4.20-5.40) L 03/01/19 04:35 Hgb 11.3 g/dL (12.0-16.0) L 03/01/19 04:35 Hct 34.1 % (37.0-47.0) L 03/01/19 04:35 MCV 90.3 fL (81.0-99.0) 03/01/19 04:35 MCH 29.9 pg (27.0-31.0) 03/01/19 04:35 MCHC 33.1 g/dL (32.0-36.0) 03/01/19 04:35 RDW 14.6 % (12.0-15.0) 03/01/19 04:35 Plt Count 202 10^3/uL (130-450) 03/01/19 04:35 MPV 7.8 fL (7.9-10.8) L 03/01/19 04:35 Neut # (Auto) 6.0 10^3/uL (1.5-6.6) 03/01/19 04:35 Lymph # (Auto) 0.6 10^3/uL (1.5-3.5) L 03/01/19 04:35 [place] # (Auto) 0.3 10^3/uL (0.0-1.0) 03/01/19 04:35 Eos # (Auto) 0.0 10^3/uL (0.0-0.7) 03/01/19 04:35 Baso # (Auto) 0.0 10^3/uL (0.0-0.1) 03/01/19 04:35 Absolute Nucleated RBC 0.00 x10^3/uL 03/01/19 04:35 Nucleated RBC % 0.0 /100WBC 03/01/19 04:35 Sodium 135 mmol/L (135-145) 03/01/19 04:35 Potassium 4.1 mmol/L (3.5-5.0) 03/01/19 04:35 Chloride 102 mmol/L (101-111) 03/01/19 04:35 Carbon Dioxide 26 mmol/L (21-32) 03/01/19 04:35 Anion Gap 7.0 (6-13) 03/01/19 04:35 BUN 7 mg/dL (6-20) 03/01/19 04:35 Creatinine 0.6 mg/dL (0.4-1.0) 03/01/19 04:35 Estimated GFR (MDRD) 119 (>89) 03/01/19 04:35 Glucose 149 mg/dL (70-100) H 03/01/19 04:35 Lactic Acid 0.8 mmol/L (0.5-2.2) 02/28/19 16:30 Calcium 8.3 mg/dL (8.5-10.3) L 03/01/19 04:35 Total Bilirubin 0.7 mg/dL (0.2-1.0) 02/28/19 09:50 AST 29 IU/L (10-42) 02/28/19 09:50 ALT 23 IU/L (10-60) 02/28/19 09:50 Alkaline Phosphatase 72 IU/L (42-121) 02/28/19 09:50 Total Protein 7.5 g/dL (6.7-8.2) 02/28/19 09:50 Albumin 4.7 g/dL (3.2-5.5) 02/28/19 09:50 Globulin 2.8 g/dL (2.1-4.2) 02/28/19 09:50 Albumin/Globulin Ratio 1.7 (1.0-2.2) 02/28/19 09:50 Lipase 33 U/L (22-51) 02/28/19 09:50 Serum HCG, Qual NEGATIVE 02/28/19 09:50 Urine Color YELLOW 02/28/19 11:25 Urine Clarity CLEAR (CLEAR) 02/28/19 11:25 Urine pH 7.5 PH (5.0-7.5) 02/28/19 11:25 Ur Specific [place] 1.015 (1.002-1.030) 02/28/19 11:25 Urine Protein NEGATIVE mg/dL (NEGATIVE) 02/28/19 11:25 Urine Glucose (UA) NEGATIVE mg/dL (NEGATIVE) 02/28/19 11:25 Urine Ketones TRACE mg/dL (NEGATIVE) 02/28/19 11:25 Urine Occult Blood NEGATIVE (NEGATIVE) 02/28/19 11:25 Urine Nitrite NEGATIVE (NEGATIVE) 02/28/19 11:25 Urine Bilirubin NEGATIVE (NEGATIVE) 02/28/19 11:25 Urine Urobilinogen 1 (NORMAL) E.U./dL (NORMAL) 02/28/19 11:25 Ur Leukocyte Esterase NEGATIVE (NEGATIVE) 02/28/19 11:25 Ur Microscopic Review NOT INDICATED 02/28/19 11:25 Urine Culture Comments NOT INDICATED 02/28/19 11:25 Group A Strep Rapid Negative (Negative) 02/28/19 09:50 Blood Type O POSITIVE 02/28/19 16:49 Blood Type Recheck O POSITIVE 02/28/19 16:55 Antibody Screen NEGATIVE 02/28/19 16:49
[2019-03-01] MEDS: SACCHAROMYCES BOULARDII 250 MG CAPSULE PO SCH (17:33)
[2019-03-01] MEDS ORDERED: SODIUM CHLORIDE FLUSH 0.9% 10 ML SYRINGE ONE (19:51)
[2019-03-02] MEDS: SODIUM CHLORIDE 0.9% 1,000 ML IV SCH (02:45)
[2019-03-02] MEDS: KETOROLAC 30 MG/ML VIAL IVP SCH ×2 (02:45→08:11)
[2019-03-02] MEDS: oxyCODONE 5 MG TABLET PO PRN ×2 (02:45→09:23)
[2019-03-02] MEDS: PIPERACILLIN/TAZOBACTAM 4.5 GM in SODIUM CHLORIDE 0.9% MINIBAG 100 ML IV SCH (04:33)
[2019-03-02] MEDS: ACETAMINOPHEN 500 MG TABLET PO SCH (04:33)
[2019-03-02] MEDS: SIMETHICONE CHEW 80 MG TABLET PO SCH ×2 (05:37→06:16)
[2019-03-02] MEDS: ONDANSETRON ODT 4 MG TABLET TL PRN ×2 (06:16→10:47)
[2019-03-02] MEDS: DOCUSATE SODIUM 100 MG CAPSULE PO SCH (08:12)
[2019-03-02] MEDS: SACCHAROMYCES BOULARDII 250 MG CAPSULE PO SCH (08:12)
[2019-03-02 08:19] VITALS: BP 114/78
[2019-03-02] MEDS ORDERED: SODIUM CHLORIDE FLUSH 0.9% 10 ML SYRINGE ONE ×2 (08:29→09:31)
[2019-03-02] MEDS ORDERED: BISACODYL 10 MG SUPP PR PRN (08:43)
[2019-03-02] MEDS ORDERED: MAGNESIUM HYDROXIDE 2,400 MG/30 ML UDC PO PRN (08:43)
--- NOTE | 2019-03-02 08:51 | PROVIDER PROGRESS NOTE ---
Subjective - General Admit Date: 02/28/19 Procedure Date: 02/28/19 Post Op Days: 2 Procedure Performed: Hysterscopy removal of IUD, Dx laproscopy - Review of Systems Wound/Incisions: positive: Healing well, No drainage General: positive: No symptoms, Other (myalgia). negative: Fever Pulmonary: positive: Cough, Sputum (parsons decreasing) Cardiovascular: positive: No symptoms Gastrointestinal: positive: No symptoms Genitourinary: positive: No symptoms (hopkins out) Objective - Patient Data Reviewed Vital Signs: Yes Vital Signs: Vital Signs x48h Temp Pulse Resp BP Pulse Ox 03/02/19 08:19 36.8 C 89 14 114/78 97 Weight: Weight 02/28/19 03/01/19 03/02/19 23:59 23:59 23:59 Weight (kg) 52.16 kg Intake & Output: Intake and Output Totals x24h 02/28/19 03/01/19 03/02/19 23:59 23:59 23:59 Intake Total 3100.00 3530 100 Output Total 400 1250 750 Balance 2700.00 2280 -650 - Lab Results Lab Results: 03/01/19 04:35 03/01/19 04:35 - Imaging Results Radiology Imaging: positive: Final report received (no pneumonia) - Current Medications Current Medications: Current Medications Generic Name Dose Route Start Last Admin Trade Name Freq PRN Reason Stop Dose Admin Acetaminophen 1,000 mg 02/28/19 20:00 03/02/19 04:33 Tylenol PO 1,000 mg Q8H DREW Administration Docusate Sodium 100 mg 02/28/19 21:00 03/02/19 08:12 Colace 100mg Capsule PO 100 mg BID DREW Administration Piperacillin Sod/Tazobactam 100 mls @ 25 mls/hr 02/28/19 20:00 03/02/19 04:33 Sod 4.5 gm/ Sodium Chloride IV 25 mls/hr Q8H DREW Administration Sodium Chloride 1,000 mls @ 100 mls/hr 02/28/19 23:45 03/02/19 02:45 Normal Saline 0.9% IV 100 mls/hr .Q10H DREW Administration Ketorolac Tromethamine 30 mg 02/28/19 20:00 03/02/19 08:11 Toradol Inj (30mg) IVP 03/05/19 19:59 30 mg Q6H DREW Administration Ondansetron HCl 4 mg 02/28/19 19:11 03/02/19 06:16 Zofran Odt TL 4 mg Q6H PRN Administration Nausea / Vomiting Oxycodone HCl 5 mg 02/28/19 19:11 03/02/19 02:45 Roxicodone PO 5 mg Q4HR PRN Administration PAIN Saccharomyces Boulardii 250 mg 03/01/19 17:00 03/02/19 08:12 Florastor PO 250 mg BIDWM DREW Administration Simethicone 80 mg 02/28/19 22:00 03/02/19 06:16 Mylicon PO 80 mg TID DREW Administration - Physical Exam Wound/Incisions: positive: Healing well, Dressing dry and intact, No drainage General Appearance: positive: No acute distress, Alert Respiratory: positive: Chest non-tender, No respiratory distress, Breath sounds nml. negative: Wheezes, Rales Cardiovascular: positive: Regular rate & rhythm, No murmur, No gallop Abdomen: positive: No organomegaly, Nml bowel sounds, No distention, Tenderness (at laproscopy site) Skin: positive: Color nml, No rash, Warm, Dry Extremities: negative: Calf tenderness, Jessa's sign/cords Neurologic/Psychiatric: positive: Oriented x3 Impression/Plan - Problem List Problem List: Negative Laproscopy Bronchitis responding toAntibiotics S/P IUD removal. probable viral URI with secondary bacterial infection Change to Augmentin Discharge Meds Augmentin 500/125 #10 Oxycodone #10 Motrin 800 # 30 Colace 100 # 30 Encouraged to take probiotics RTC 1-2 weeks Pt not covered with contraception
== END 2019-03-02 11:10 | disposition home or self-care (01) | DRG 745 ==
LOC: EDUNIT# → ED 09:37 → SDS 15:53 → MS3 19:05
PROVIDERS: ADMIT Obstetrics & Gynecology; ATTEND Internal Medicine
PROC: 0UPD8HZ Removal of Contraceptive Device from Uterus and Cervix, Via Natural or Artificial Opening Endoscopic (ICD-10-PCS; principal; 2019-02-28 17:00)
PROC: 0WJJ4ZZ Inspection of Pelvic Cavity, Percutaneous Endoscopic Approach (ICD-10-PCS; 2019-02-28 17:00)
DX: T83.32XA Displacement of intrauterine contraceptive device, initial encounter (principal); J20.8 Acute bronchitis due to other specified organisms; J45.909 Unspecified asthma, uncomplicated; F17.210 Nicotine dependence, cigarettes, uncomplicated; F41.9 Anxiety disorder, unspecified; F31.9 Bipolar disorder, unspecified
CPT/HCPCS: 36415; 71046; 74177; 80048; 80053; 81003; 83605; 83690; 84703; 85025; 86850; 86900; 86901; 87040; 87070; 87205; 87430; 96361; 96365; 96375; 96376; 99284; A9270; J0131; J1170; J2270; J7120; Q0162; Q9967; 81001; 87086

== ENCOUNTER 2019-03-16 04:32 | Outpatient (CLI) | payer MEDICAID, OTHER | END 2019-03-16 04:33 | disposition critical access hospital (66) | LOC: EMS 04:32 | PROVIDERS: ATTEND Surgery | DX: M54.9 Dorsalgia, unspecified (principal); M79.605 Pain in left leg; M79.604 Pain in right leg | CPT/HCPCS: A0425; A0429; A0999 ==

== ENCOUNTER 2019-03-16 04:50 | Emergency (ER) | payer MEDICAID ==
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
[2019-03-16 05:09] VITALS: BP 145/111
[2019-03-16] MEDS ORDERED: ACETAMINOPHEN 325 MG TABLET PO STA (05:27)
[2019-03-16] MEDS ORDERED: IBUPROFEN 600 MG TABLET PO STA (05:27)
[2019-03-16 11:28] LABS: BILIRUBIN,URINE NEGATIVE (NEGATIVE); GLUCOSE, URINE (UA) NEGATIVE (NEGATIVE); KETONES,URINE (UA) TRACE mg/dL (NEGATIVE); LEUKOCYTE ESTERASE, URINE NEGATIVE (NEGATIVE); NITRITE,URINE NEGATIVE (NEGATIVE); OCCULT BLOOD,URINE NEGATIVE (NEGATIVE); PH,URINE 5.5 PH (5.0-7.5); PROTEIN,URINE NEGATIVE (NEGATIVE); UROBILINOGEN,URINE 0.2 (NORMAL) E.U./dL (NORMAL)
[2019-03-16 11:29] LABS: CLARITY,URINE CLEAR (CLEAR)
[2019-03-16 11:30] LABS: HCG UR QUAL NEGATIVE
[2019-03-16] MEDS ORDERED: AZITHROMYCIN 250 MG TABLET PO STA (12:15)
[2019-03-16] MEDS ORDERED: LIDOCAINE 1% 2 ML VIAL MC ONE (12:15)
[2019-03-16] MEDS ORDERED: cefTRIAXone 250 MG VIAL IM STA (12:15)
[2019-03-16] MEDS ORDERED: ULIPRISTAL ACETATE 30 MG TABLET PO STA (12:16)
[2019-03-17 11:11] LABS: HEPATITIS C ANTIBODY NON-REACTIVE (NON-REACTIVE)
[2019-03-19 16:56] LABS: HIV AG/AB 4TH GEN NON-REACTIVE (NON-REACTIVE)
== END 2019-03-16 13:17 | disposition home or self-care (01) ==
LOC: EDUNIT# → ED 04:50
DX: T76.21XA Adult sexual abuse, suspected, initial encounter (principal); S40.812A Abrasion of left upper arm, initial encounter; S40.811A Abrasion of right upper arm, initial encounter; S80.812A Abrasion, left lower leg, initial encounter; S80.811A Abrasion, right lower leg, initial encounter; S20.419A Abrasion of unspecified back wall of thorax, initial encounter; S70.212A Abrasion, left hip, initial encounter; S70.211A Abrasion, right hip, initial encounter; T33.832A Superficial frostbite of left toe(s), initial encounter; T33.831A Superficial frostbite of right toe(s), initial encounter; X31.XXXA Exposure to excessive natural cold, initial encounter; Y93.01 Activity, walking, marching and hiking; Y92.828 Other wilderness area as the place of occurrence of the external cause; F17.200 Nicotine dependence, unspecified, uncomplicated
CPT/HCPCS: 0133C; 81003; 81025; 86317; 86803; 87389; 87491; 87591; 96372; 99283; A9270; 81001; 87086

== ENCOUNTER 2019-08-27 09:20 | Inpatient (IN) | payer MEDICAID ==
--- NOTE | 2019-08-27 09:48 | ED Physician Documentation ---
PD HPI OVERDOSE - Stated complaint Stated Complaint: OVERDOSE - Chief complaint Chief Complaint: General - History obtained from History obtained from: Patient - History of Present Illness Timing - onset: Yesterday (last evening) Subtance(s) ingested: Single (She states she took 2 handfuls of aspirin yesterday evening. Unable to quantify the amount but best estimate about 30 regular strength aspirins. She was trying to kill herself. She also had some superficial lacerations of left forearm. She developed nausea numbness and tingling with vomiting and ringing in her ears over the next couple of hours and this has continued overnight. She is feeling nauseous with vomiting. She asked her friend to bring her to the hospital. She is having upper abdominal pain and states she vomited coffee-ground material. No cruz blood in her emesis. She is having difficulty hearing with significant ringing in her ears.), ASA Associated symptoms: Agitated, Abdominal pain, NVD, Other (ringing in ears and trouble hearing) Contributing factors: Depresssed, Suicidal, Substance abuse (denies any drug use yesterday) Similar symptoms before: Diagnosis (She states she has had suicide attempts and overdoses in the past. She currently does not get any counseling. She is not on any current antidepressants.) Review of Systems Unable to obtain: Other (agitated but still able to answer limitedly) Constitutional: denies: Fever Ears: reports: Loss of hearing, Tinnitus/ringing (overnight) Nose: denies: Rhinorrhea / runny nose, Congestion Throat: denies: Sore throat Cardiac: denies: Chest pain / pressure Respiratory: reports: Dyspnea. denies: Cough GI: reports: Abdominal Pain (upper), Nausea, Vomiting, Hematemesis (coffee ground). 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 : None HEENT: None Psych: Depression, Anxiety, Bipolar disorder, Other (self-cutting behavior) Musculoskeletal: None Derm: None - Past Surgical History Past Surgical History: Yes General: Cholecystectomy HEENT: Tonsil/Adenoidectomy - Present Medications Home Medications: Ambulatory Orders Medication Instructions Recorded Confirmed No Known Home Medications 03/01/19 03/01/19 - Allergies Allergies/Adverse Reactions: Allergies Allergy/AdvReac Type Severity Reaction Status Date / Time coconut Allergy Unknown Verified 03/16/19 05:09 lamotrigine [From Lamictal] Allergy Rash Verified 03/16/19 05:09 - Social History Does the pt smoke?: No Smoking Status: Current every day smoker Does the pt drink ETOH?: No Does the pt have substance abuse?: No - Immunizations Immunizations are current?: Yes - POLST Patient has POLST: No POLST Status: Full Code PD ED PE NORMAL - Vitals Vital signs reviewed: Yes - General General: Alert and oriented X 3, Well developed/nourished, Other (anxious and agitated but not somnolent) - HEENT HEENT: Atraumatic, Ears normal, Pharynx benign - Neck Neck: Supple, no meningeal sign, No adenopathy - Cardiac Cardiac: No: RRR (tachycardic but regular) - Respiratory Respiratory: No respiratory distress (is not tachypneic), Clear bilaterally - Abdomen Abdomen: Normal bowel sounds, Non distended, No organomegaly, Other (tender epigastric without guarding nor percussion tenderness) - Female Female : Deferred - Rectal Rectal: Deferred - Back Back: No CVA TTP - Derm Derm: Normal color, Warm and dry - Extremities Extremities: No tenderness to palpate, Normal ROM s pain, Other (left forearm with multiple superficial lacerations. Old scars as well. ) - Neuro Neuro: Alert and oriented X 3, No motor deficit, Normal speech Results - Vitals Vitals: Vital Signs - 24 hr 08/27/19 08/27/19 08/27/19 09:25 10:18 10:30 Temperature 36.5 C Heart Rate 134 H 115 H 110 H Respiratory 18 15 15 Rate Blood Pressure 132/78 H 130/95 H 113/76 O2 Saturation 99 100 100 08/27/19 08/27/19 08/27/19 11:09 11:30 12:14 Temperature Heart Rate 110 H 112 H 112 H Respiratory 13 16 20 Rate Blood Pressure 105/75 111/76 110/66 O2 Saturation 99 100 100 08/27/19 12:30 Temperature Heart Rate 101 H Respiratory 16 Rate Blood Pressure 106/70 O2 Saturation 100 Oxygen O2 Source Room air - Labs Labs: Laboratory Tests 08/27/19 08/27/19 08/27/19 09:44 09:44 09:44 WBC 10.9 H RBC 5.23 Hgb 15.7 Hct 46.5 MCV 88.9 MCH 30.0 MCHC 33.8 RDW 13.6 Plt Count 376 MPV 8.9 Neut # (Auto) 8.8 H Lymph # (Auto) 1.4 L [place] # (Auto) 0.6 Eos # (Auto) 0.0 Baso # (Auto) 0.1 Absolute Nucleated RBC 0.00 Nucleated RBC % 0.0 VBG pH VBG pCO2 VBG pO2 VBG HCO3 VBG Total CO2 VBG O2 Saturation VBG Base Excess Sodium 134 L Potassium 3.8 Chloride 101 Carbon Dioxide 17 L Anion Gap 16.0 H BUN 21 H Creatinine 1.0 Estimated GFR (MDRD) 66 L Glucose 102 H Calcium 9.1 Total Bilirubin 0.8 AST 108 H ALT 126 H Alkaline Phosphatase 82 Total Protein 8.9 H Albumin 5.1 Globulin 3.8 Albumin/Globulin Ratio 1.3 Lipase 33 TSH 0.30 L Urine Color Urine Clarity Urine pH Ur Specific [place] Urine Protein Urine Glucose (UA) Urine Ketones Urine Occult Blood Urine Nitrite Urine Bilirubin Urine Urobilinogen Ur Leukocyte Esterase Urine RBC Urine WBC Ur Squamous Epith Cells Urine Bacteria Ur Microscopic Review Urine Culture Comments Salicylates 64.1 H* Urine Opiates Screen Ur Oxycodone Screen Urine Methadone Screen Ur Propoxyphene Screen Acetaminophen < 10 L Ur Barbiturates Screen Ur Tricyclics Screen Ur Phencyclidine Scrn Ur Amphetamine Screen U Methamphetamines Scrn U Benzodiazepines Scrn Urine Cocaine Screen U Cannabinoids Screen Ethyl Alcohol < 5.0 08/27/19 08/27/19 08/27/19 10:15 11:55 12:16 WBC RBC Hgb Hct MCV MCH MCHC RDW Plt Count MPV Neut # (Auto) Lymph # (Auto) [place] # (Auto) Eos # (Auto) Baso # (Auto) Absolute Nucleated RBC Nucleated RBC % VBG pH 7.368 VBG pCO2 30.2 L VBG pO2 27.9 VBG HCO3 17.0 L VBG Total CO2 17.9 L VBG O2 Saturation 52.4 L VBG Base Excess -6.9 L Sodium 136 Potassium 3.8 Chloride 108 Carbon Dioxide 18 L Anion Gap 10.0 BUN 18 Creatinine 0.8 Estimated GFR (MDRD) 85 L Glucose 119 H Calcium 7.3 L Total Bilirubin AST ALT Alkaline Phosphatase Total Protein Albumin Globulin Albumin/Globulin Ratio Lipase TSH Urine Color YELLOW Urine Clarity SL. CLOUDY Urine pH 6.0 Ur Specific [place] 1.025 Urine Protein 100 H Urine Glucose (UA) NEGATIVE Urine Ketones >=80 H Urine Occult Blood NEGATIVE Urine Nitrite NEGATIVE Urine Bilirubin NEGATIVE Urine Urobilinogen 0.2 (NORMAL) Ur Leukocyte Esterase NEGATIVE Urine RBC 0-5 Urine WBC 0-3 Ur Squamous Epith Cells MANY Squamous H Urine Bacteria Few Ur Microscopic Review INDICATED Urine Culture Comments NOT INDICATED Salicylates 48.8 H* Urine Opiates Screen NEGATIVE Ur Oxycodone Screen NEGATIVE Urine Methadone Screen NEGATIVE Ur Propoxyphene Screen NEGATIVE Acetaminophen Ur Barbiturates Screen NEGATIVE Ur Tricyclics Screen NEGATIVE Ur Phencyclidine Scrn NEGATIVE Ur Amphetamine Screen POSITIVE H U Methamphetamines Scrn POSITIVE H U Benzodiazepines Scrn NEGATIVE Urine Cocaine Screen NEGATIVE U Cannabinoids Screen NEGATIVE Ethyl Alcohol - Rads (name of study) chest Radiology: Prelim report reviewed, EMP read contemporaneously (clear without signs of edema), See rad report PD MEDICAL DECISION MAKING - ED course Complexity details: reviewed results, re-evaluated patient (She is feeling calmer with some fluids and antiemetics and famotidine. We will continue hydration.), considered differential (Aspirin overdose and toxicity with ototoxicity and gastritis. Will check electrolytes and renal function. If potassium is okay we will alkalize the urine. Give IV fluids for good hydration. At this point she does not show signs of cerebral edema or pulmonary edema. We will give famotidine for the gastritis. Antiemetics as well.), d/w patient, d/w gis consultant (Consulted nephrology on-call at to discuss treatment and indications for transfer. He agreed with the bicarbonate drip and hydration with watching the potassium level and following the aspirin level. At this point she would not meet criteria for dialysis or transfer. Indications would be a further rising aspirin level, cardiovascular abnormalities, renal insufficiency and lack of urine output or any indication of cerebral or pulmonary edema.) Departure - Departure Disposition: 66 [facility] DC/Xfer Clinical Impression: Intentional aspirin overdose Qualifiers: Encounter type: initial encounter Qualified Code(s): T39.012A - Poisoning by aspirin, intentional self-harm, initial encounter Acute gastritis Qualifiers: Gastritis type: unspecified gastritis Gastritis bleeding: with bleeding Qualified Code(s): K29.01 - Acute gastritis with bleeding Ototoxicity Qualifiers: Laterality: bilateral Qualified Code(s): H93.8X3 - Other specified disorders of ear, bilateral Depression Qualifiers: Depression Type: unspecified Qualified Code(s): F32.9 - Major depressive disorder, single episode, unspecified Forearm laceration Qualifiers: Encounter type: initial encounter Laterality: left Qualified Code(s): S51.812A - Laceration without foreign body of left forearm, initial encounter Condition: Stable
[2019-08-27 09:54] LABS: BASOPHILS # (AUTO) 0.1 10^3/uL (0.0-0.1); BASOPHILS % (AUTO) 0.6 %; EOSINOPHILS % (AUTO) 0.3 %; HGB - HEMOGLOBIN 15.7 g/dL (12.0-16.0); LYMPHOCYTES # (AUTO) 1.4 10^3/uL (1.5-3.5); LYMPHOCYTES % (AUTO) 12.4 %; MEAN CORPUSCULAR HGB CONC 33.8 g/dL (32.0-36.0); MEAN CORPUSCULAR VOLUME 88.9 fL (81.0-99.0); MEAN PLATELET VOLUME 8.9 fL (7.9-10.8); MONOCYTES # (AUTO) 0.6 10^3/uL (0.0-1.0); MONOCYTES % (AUTO) 5.1 %; NEUTROPHILS # (AUTO) 8.8 10^3/uL (1.5-6.6); NEUTROPHILS % (AUTO) 81.1 %; PLT - PLATELET COUNT 376 10^3/uL (130-450); RED BLOOD COUNT 5.23 10^6/uL (4.20-5.40); RED CELL DISTRIBUTION WIDTH 13.6 % (12.0-15.0); WHITE BLOOD COUNT 10.9 x10^3/uL (4.8-10.8)
[2019-08-27] MEDS ORDERED: FAMOTIDINE 20 MG/2 ML VIAL IVP STA (09:55)
[2019-08-27] MEDS ORDERED: SODIUM CHLORIDE 0.9% 1,000 ML IV ONE ×2 (09:55→10:05)
[2019-08-27] MEDS ORDERED: ONDANSETRON 4 MG/2 ML VIAL IVP STA (09:55)
[2019-08-27 10:11] LABS: ALBUMIN 5.1 g/dL (3.2-5.5); ALBUMIN/GLOBULIN RATIO 1.3 (1.0-2.2); ALKALINE PHOSPHATASE 82 IU/L (42-121); ALT ALANINE AMINOTRANSFERASE 126 IU/L (10-60); AST ASPARTATE AMINOTRANSFERASE 108 IU/L (10-42); BILIRUBIN,TOTAL 0.8 mg/dL (0.2-1.0); BUN - BLOOD UREA NITROGEN 21 mg/dL (6-20); CALCIUM 9.1 mg/dL (8.5-10.3); CARBON DIOXIDE - CO2 17 mmol/L (21-32); CHLORIDE 101 mmol/L (101-111); GFR - MDRD 66 (>89); GLUCOSE 102 mg/dL (70-100); LIPASE 33 U/L (22-51); SODIUM 134 mmol/L (135-145); TOTAL PROTEIN 8.9 g/dL (6.7-8.2)
[2019-08-27 10:13] LABS: ACETAMINOPHEN < 10 ug/mL (10-30)
[2019-08-27 10:14] LABS: SALICYLATE 64.1 mg/dL
[2019-08-27 10:22] LABS: VBG PCO2 30.2 mmHg (41-51); VBG PH 7.368 (7.31-7.41); VBG PO2 27.9 mmHg (25-47)
[2019-08-27 10:23] LABS: VBG BASE EXCESS -6.9 mmol/L (-2 - +2); VBG TOTAL CO2 17.9 mmol/L (24-29)
[2019-08-27] MEDS ORDERED: SODIUM BICARBONATE 100 MEQ in DEXTROSE 5% 1,000 ML IV STA (10:34)
--- NOTE | 2019-08-27 11:18 | XRAY Report ---
Reason: chest pain Procedure Date: 08/27/2019 Accession Number: [id number] / [id number] Procedure: XR - Chest 1 View X-Ray CPT Code: 11228 FULL RESULT: EXAM: CHEST RADIOGRAPHY EXAM DATE: 08/27/2019 10:52 AM. CLINICAL HISTORY: Chest pain. COMPARISON: CHEST 2 VIEW 02/28/2019 11:01 AM. TECHNIQUE: 1 view. FINDINGS: Lungs/Pleura: No focal opacities evident. No pleural effusion. No pneumothorax. Mediastinum: Within exam limitations, the cardiomediastinal contour is normal. Other: Status post cholecystectomy. IMPRESSION: 1. No acute disease in the chest. RADIA
[2019-08-27 12:03] LABS: BILIRUBIN,URINE NEGATIVE (NEGATIVE); GLUCOSE, URINE (UA) NEGATIVE (NEGATIVE); KETONES,URINE (UA) >=80 mg/dL (NEGATIVE); LEUKOCYTE ESTERASE, URINE NEGATIVE (NEGATIVE); MUDS CUTOFF CONCENTRATIONS CUTOFF CONC BELOW:; NITRITE,URINE NEGATIVE (NEGATIVE); OCCULT BLOOD,URINE NEGATIVE (NEGATIVE); PROTEIN,URINE 100 mg/dL (NEGATIVE); UROBILINOGEN,URINE 0.2 (NORMAL) E.U./dL (NORMAL)
[2019-08-27 12:04] LABS: CLARITY,URINE SL. CLOUDY (CLEAR)
[2019-08-27 12:08] LABS: BACTERIA,URINE Few /HPF (None Seen); RBC,URINE 0-5 /HPF (0-5); SQUAMOUS EPITHELIAL CELL,UR MANY Squamous (<= Few)
[2019-08-27 12:13] LABS: AMPHETAMINE SCREEN,URINE POSITIVE (NEGATIVE); BENZODIAZEPINES SCREEN, URINE NEGATIVE (NEGATIVE); COCAINE SCREEN URINE NEGATIVE (NEGATIVE); METHADONE SCREEN, URINE NEGATIVE (NEGATIVE); METHAMPHETAMINES SCREEN, URINE POSITIVE (NEGATIVE); OPIATE SCREEN, URINE NEGATIVE (NEGATIVE); OXYCODONE SCREEN, URINE NEGATIVE (NEGATIVE); PROPOXYPHENE SCREEN, URINE NEGATIVE (NEGATIVE); TRICYCLIC ANTIDEPRESSANT,URINE NEGATIVE (NEGATIVE)
[2019-08-27 12:51] LABS: CALCIUM 7.3 mg/dL (8.5-10.3); CREATININE 0.8 mg/dL (0.4-1.0)
[2019-08-27 12:55] LABS: SALICYLATE 48.8 mg/dL
--- NOTE | 2019-08-27 13:47 | HISTORY & PHYSICAL EXAMINATION ---
Chief Complaint - Chief Complaint Chief Complaint: Aspirin overdose History of Present Illness - Admitted From Admitted From:: Home - History Obtained From Records Reviewed: Yes History obtained from: Patient, ER Physician - History of Present Illness HPI Comment/Other: This is a 28 year old female with a past medical history significant for depress ion, multiple suicide attempts in the past, and substance abuse who presents from home after she intentionally overdosed on Aspirin yesterday around noon time. She reports taking a handful of 325mg tablets of Aspirin which she believes ended up being 30-40 tablets. She developed nausea and nonbloody emesis along with severe tinnitus in both ears as well as some hearing difficulties. She reports she last attempted to take her life about 3 months ago when she took 2-3 handful of ibuprofen tablets but that she did not seek medical attention at that time. She reports being last hospitalized for depression about 5 years ago. She has not taken any antidepressants in one year because none of them have work for her in the past except for marijuana. She last saw a Psychiatrist here in [place] about 3 months ago. She currently denies the thought of trying to harm herself. She uses illicit drugs and admits to using methamphetamines three days ago. Denies IV drug use and that she only smokes or snorts. She currently lives with a friend who she is helping renovate their house. She does not have a job and is otherwise homeless. She has two children who live with her mother that she sees every once in a while when her mother will allow her. She continues to engage in nonsuicidal self injury including cutting her wrists. In the emergency department, she was found be tachycardic but blood pressure was stable. Her labs revealed a salicylate level of 64.1. Her renal function and potassium were stable. Her pH was 7.368 on VBG. Nephrology was contacted by the ER Physician to see if dialysis was warranted. They felt there were no indications for dialysis and recommended a bicarbonate infusion. She will be admitted to the ICU for further management. 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 Reports rare alcohol use. Uses multiple different illicit drugs on a regular basis. Last used methamphetamine a few days ago. Lives with a friend whom she is helping renovate their house but otherwise is homeless and without a job. - Substance History Abuse: Recurrent use of substance despite neg consequences: Amphetamine - POLST Patient has POLST: No POLST Status: Full Code Meds/Allgy - Home Medications Home Medications: Ambulatory Orders Medication Instructions Recorded Confirmed No Known Home Medications 03/01/19 03/01/19 - Allergies Allergies/Adverse Reactions: Allergies Allergy/AdvReac Type Severity Reaction Status Date / Time coconut Allergy Unknown Verified 03/16/19 05:09 lamotrigine [From Lamictal] Allergy Rash Verified 03/16/19 05:09 Review of Systems - Constitutional Constitutional: reports: Fatigue, Weakness. denies: Fever, Chills, Poor appetite - Ears, Nose & Throat Ears, Nose & Throat: reports: Hearing loss, Tinnitus - Cardiovascular Cariovascular: reports: Chest pain. denies: Exertional dyspnea, Decr. exercise tolerance - Respiratory Respiratory: reports: SOB at rest. denies: Cough - Gastrointestinal Gastrointestinal: reports: Abdominal pain, Nausea, Vomiting. denies: Constipati on, Diarrhea - Genitourinary Genitourinary: denies: Dysuria, Frequency - Integumentary Integumentary: reports: Lumps - Neurological Neurological: reports: General weakness. denies: Focal weakness, Numbness - Psychiatric Psychiatric: reports: Depression, Suicidal - All Other Systems All Other Systems: reports: Reviewed and negative Prior Level of Functionality: Independent with ADL's. Exam - Vital Signs Reviewed Vital Signs: Yes Vital Signs: Vital Signs x48h Temp Pulse Resp BP Pulse Ox 08/27/19 13:31 113 H 20 99/59 L 100 08/27/19 13:00 102 H 22 99/59 L 100 08/27/19 12:30 101 H 16 106/70 100 08/27/19 12:14 112 H 20 110/66 100 08/27/19 11:30 112 H 16 111/76 100 08/27/19 11:09 110 H 13 105/75 99 08/27/19 10:30 110 H 15 113/76 100 08/27/19 10:18 115 H 15 130/95 H 100 08/27/19 09:25 36.5 C 134 H 18 132/78 H 99 - Physical Exam General Appearance: positive: Alert, Mild distress Eyes Bilateral: positive: Normal inspection ENT: positive: ENT inspection nml Neck: positive: Nml inspection Respiratory: positive: No respiratory distress. negative: Wheezes, Rales, Rhonchi Cardiovascular: positive: No murmur, Tachycardia. negative: Systolic murmur, Diastolic murmur Abdomen: positive: Non-tender, Nml bowel sounds, No distention. negative: Tenderness, Guarding, Rebound Skin: positive: No rash, Warm, Dry, Laceration (cm) (Multiple lacerations at different stanges of healing over her bilateral wrists.), Other (There is a 2cm palpable mass over the left forearm inferior to the elbow that is tender to touch but not erythematous or warm.) Extremities: positive: Full ROM Neurologic/Psychiatric: positive: Oriented x3, Weakness, Depressed mood/affect. negative: Disoriented to person, Disoriented to place, Disoriented to time Conclusion/Plan - Problem List (1) Intentional aspirin overdose Conclusion/Plan: Fortunately she does not have signs of cerebral or pulmonary edema and her renal function and electrolytes are stable. Nephrology did not feel there was an indication for dialysis. She does have tinnitus and ototoxicity which should improve as her salicylate levels decrease. Will continue bicarbonate infusion and monitor renal function every 4 hours. Will recheck salicylate level in AM as it is already decreasing. Qualifiers: Encounter type: initial encounter Qualified Code(s): T39.012A - Poisoning by aspirin, intentional self-harm, initial encounter (2) Suicide attempt Conclusion/Plan: She unfortunately has multiple prior episodes of suicide attempts and was previously hospitalized for her severe depression. She will need a mental health evaluation once medically clear and admission to inpatient Psychatric hospital. 1:1 observation has been ordered. (3) Increased anion gap metabolic acidosis Conclusion/Plan: Secondary to salicylate overdose. Should improve with bicarbonate and as salicylate levels decrease. Monitor electrolytes. (4) Methamphetamine use Conclusion/Plan: Her urine drug screen is positive for meth use and she is agreeable to rehab. Will consult social work. (5) Subcutaneous mass of left forearm Conclusion/Plan: Etiology is not clear but it was noticed 2 weeks ago and has been increasing in size. It is tender to palpation but no signs of infection or erythema. Will obtain ultrasound of the extremity for further evaluation. - Lab Results Lab results reviewed: Yes Fish Bones: 08/27/19 09:44 08/27/19 16:05 Core Measures - Anticipated LOS I expect patient to be DC'd or transferred within 96 hours.: Yes - Issues Hospital Issues and Management Plan: Aspirin overdose requiring IV bicarbonate and frequent lab monitoring. - DVT/VTE - Prophylaxis VTE/DVT Device ordered at admit?: Yes VTE/DVT Prophylaxis med ordered at admit?: No Not Ordered - Medical Reason: Not indicated
[2019-08-27] MEDS ORDERED: METOCLOPRAMIDE 10 MG/2 ML VIAL IVP PRN (14:52)
[2019-08-27 15:35] LABS: HCG UR QUAL NEGATIVE
[2019-08-27] MEDS: SODIUM CHLORIDE FLUSH 0.9% 10 ML SYRINGE IVP SCH (16:00)
[2019-08-27] MEDS: PANTOPRAZOLE 40 MG VIAL IVP SCH (16:00)
[2019-08-27 16:24] LABS: CALCIUM 7.9 mg/dL (8.5-10.3); CREATININE 0.9 mg/dL (0.4-1.0)
[2019-08-27 16:27] LABS: VBG BASE EXCESS -3.9 mmol/L (-2 - +2); VBG PCO2 26.8 mmHg (41-51); VBG PH 7.457 (7.31-7.41); VBG TOTAL CO2 19.3 mmol/L (24-29)
[2019-08-27] MEDS ORDERED: POTASSIUM CHLORIDE 20 MEQ TABLET PO STA (16:45)
[2019-08-27] MEDS: SODIUM BICARBONATE 100 MEQ in DEXTROSE 5% 1,000 ML IV SCH (19:44)
[2019-08-27 20:44] LABS: CALCIUM 7.9 mg/dL (8.5-10.3); CREATININE 0.9 mg/dL (0.4-1.0)
[2019-08-27] MEDS ORDERED: HEPARIN 5,000 UNIT/ML VIAL SUBQ SCH (21:00)
[2019-08-27] MEDS ORDERED: POTASSIUM CHLORIDE 20 MEQ TABLET PO ONE (21:10)
[2019-08-28] MEDS: SODIUM BICARBONATE 100 MEQ in DEXTROSE 5% 1,000 ML IV SCH ×2 (01:00→06:46)
[2019-08-28] MEDS: SODIUM CHLORIDE FLUSH 0.9% 10 ML SYRINGE IVP SCH ×3 (01:06→17:00)
[2019-08-28] MEDS: LORazepam 2 MG/ML VIAL IVP PRN ×2 (04:28→20:40)
[2019-08-28] MEDS: SODIUM CHLORIDE FLUSH 0.9% 10 ML SYRINGE IVP PRN ×3 (04:32→20:40)
[2019-08-28 05:14] LABS: BASOPHILS % (AUTO) 0.6 %; EOSINOPHILS # (AUTO) 0.1 10^3/uL (0.0-0.7); EOSINOPHILS % (AUTO) 1.5 %; HGB - HEMOGLOBIN 11.6 g/dL (12.0-16.0); LYMPHOCYTES # (AUTO) 2.2 10^3/uL (1.5-3.5); LYMPHOCYTES % (AUTO) 40.9 %; MEAN CORPUSCULAR HGB CONC 32.8 g/dL (32.0-36.0); MEAN CORPUSCULAR VOLUME 91.5 fL (81.0-99.0); MEAN PLATELET VOLUME 9.5 fL (7.9-10.8); MONOCYTES # (AUTO) 0.4 10^3/uL (0.0-1.0); NEUTROPHILS # (AUTO) 2.6 10^3/uL (1.5-6.6); NEUTROPHILS % (AUTO) 48.8 %; PLT - PLATELET COUNT 258 10^3/uL (130-450); RED BLOOD COUNT 3.87 10^6/uL (4.20-5.40); RED CELL DISTRIBUTION WIDTH 13.8 % (12.0-15.0); WHITE BLOOD COUNT 5.4 x10^3/uL (4.8-10.8)
[2019-08-28 05:31] LABS: ALBUMIN 3.3 g/dL (3.2-5.5); ALKALINE PHOSPHATASE 54 IU/L (42-121); ALT ALANINE AMINOTRANSFERASE 58 IU/L (10-60); AST ASPARTATE AMINOTRANSFERASE 37 IU/L (10-42); BILIRUBIN,DIRECT < 0.1 mg/dL (0.1-0.5); BILIRUBIN,TOTAL 0.4 mg/dL (0.2-1.0); BUN - BLOOD UREA NITROGEN 17 mg/dL (6-20); CALCIUM 7.9 mg/dL (8.5-10.3); CARBON DIOXIDE - CO2 24 mmol/L (21-32); CHLORIDE 105 mmol/L (101-111); CREATININE 0.9 mg/dL (0.4-1.0); GFR - MDRD 75 (>89); GLUCOSE 116 mg/dL (70-100); MAGNESIUM 2.1 mg/dL (1.7-2.8); PHOSPHORUS 2.8 mg/dL (2.5-4.6); SALICYLATE 28.5 mg/dL; SODIUM 138 mmol/L (135-145); TOTAL PROTEIN 5.9 g/dL (6.7-8.2)
[2019-08-28] MEDS: PANTOPRAZOLE 40 MG VIAL IVP SCH (06:45)
[2019-08-28] MEDS: ONDANSETRON 4 MG/2 ML VIAL IVP PRN (06:53)
[2019-08-28] MEDS ORDERED: POTASSIUM CHLORIDE 20 MEQ TABLET PO ONE (07:00)
--- NOTE | 2019-08-28 10:40 | PROVIDER PROGRESS NOTE ---
Assessment/Plan - Problem List (1) Suicide attempt Assessment/Plan: She unfortunately has multiple prior episodes of suicide attempts and was previously hospitalized for her severe depression. She will need a mental health evaluation once medically clear and possible admission/transfer to inpatient Psychatric hospital. She told me she "wants to get better". ICU and 1:1 monitoring continue. (2) Intentional aspirin overdose Qualifiers: Encounter type: subsequent encounter Qualified Code(s): T39.012D - Poisoning by aspirin, intentional self-harm, subsequent encounter Assessment/Plan: She still has c/o tinnitus. The updated poison control recommendations were to stop bicarbonate drip now that the salicylate level is less than 30 and recheck salicylate level 6 hours after the bicarb drip is off as well as 12 hours after the drip is off. She will be medically cleared for SW to do a mental health eval following that. (3) Ototoxicity Qualifiers: Laterality: bilateral Qualified Code(s): H93.8X3 - Other specified disorders of ear, bilateral Assessment/Plan: She still has tinnitus today. Related to aspirin OD. Monitor for sx, as serum salicylate level drops. (4) Hypokalemia Assessment/Plan: Related to iv bicarb treatment, causing intracellular K movement. Replace K with ICU protocol. Monitor BMP daily. (5) Methamphetamine use Assessment/Plan: She did not go through the withdrawal sx of somnolence and lethargy, since her last use of Meth was 2 days ago, as per what she told her RN. (6) Subcutaneous mass of left forearm Assessment/Plan: Etiology is not clear but it was "noticed 2 weeks ago and has been increasing in size". It is mildly tender to palpation but no signs of infection or erythema. It has the appearance of a deep ecchymosis, with slight purple color and 2 pin hole negrete in te zone. No US of arm planned. Will order warm compresses and elevation. (7) Anemia Assessment/Plan: This is likely hemodilutional sine her Hgb dropped from 15 yesterday to 11 today. Will check serum levels of B12, Folate and Iron and replace if low. (8) Increased anion gap metabolic acidosis Assessment/Plan: Caused by salicylic acid; treated with bicarb drip, and now resolved. - Current Meds Current Meds: Current Medications Generic Name Dose Route Start Last Admin Trade Name Freq PRN Reason Stop Dose Admin Lorazepam 0.5 mg 08/27/19 22:25 08/28/19 04:28 Ativan Inj (Vial) IVP 0.5 mg Q2H PRN Administration Anxiety Ondansetron HCl 4 mg 08/27/19 12:56 08/28/19 06:53 Zofran Inj IVP 4 mg Q6HR PRN Administration Nausea / Vomiting Pantoprazole Sodium 40 mg 08/27/19 15:39 08/28/19 06:45 Protonix IVP 40 mg QDAC DREW Administration Sodium Chloride 10 ml 08/27/19 17:00 08/28/19 08:29 Normal Saline Flush 0.9% IVP 20 ml 0100,0900,1700 DREW Administration Sodium Chloride 10 ml 08/27/19 12:56 08/28/19 06:54 Normal Saline Flush 0.9% IVP 10 ml PRN PRN Administration NEEDED PER PROVIDER ORDERS - Lab Result Fish Bone Diagrams: 08/28/19 04:51 08/28/19 04:51 - Additional Planning My Orders: My Active Orders 08/28/19 16:30 SALICYLATE [CHEM] Timed 08/28/19 22:30 SALICYLATE [CHEM] Timed Subjective - Subjective Patient Reports: Feeling Better Objective Vital Signs: Vital Signs - 24 hr 08/27/19 08/27/19 08/27/19 11:09 11:30 12:14 Temperature Heart Rate 110 H 112 H 112 H Heart Rate [ Monitoring electrodes] Respiratory 13 16 20 Rate Blood Pressure 105/75 111/76 110/66 Blood Pressure [Right Brachial artery] O2 Saturation 99 100 100 08/27/19 08/27/19 08/27/19 12:30 13:00 13:31 Temperature Heart Rate 101 H 102 H 113 H Heart Rate [ Monitoring electrodes] Respiratory 16 22 20 Rate Blood Pressure 106/70 99/59 L 103/63 Blood Pressure [Right Brachial artery] O2 Saturation 100 100 100 08/27/19 08/27/19 08/27/19 13:49 14:05 15:00 Temperature 36.8 C 37.2 C Heart Rate Heart Rate [ 101 H 111 H Monitoring electrodes] Respiratory 18 16 Rate Blood Pressure Blood Pressure 110/53 L 96/67 [Right Brachial artery] O2 Saturation 100 100 08/27/19 08/27/19 08/27/19 16:00 17:00 18:00 Temperature 36.9 C Heart Rate Heart Rate [ 106 H 98 103 H Monitoring electrodes] Respiratory 17 17 18 Rate Blood Pressure Blood Pressure 95/49 L 103/56 L 103/61 [Right Brachial artery] O2 Saturation 100 99 100 08/27/19 08/27/19 08/27/19 19:00 19:59 20:00 Temperature 37.3 C Heart Rate Heart Rate [ 108 H 110 H 120 H Monitoring electrodes] Respiratory 17 26 H 28 H Rate Blood Pressure Blood Pressure 102/60 105/68 [Right Brachial artery] O2 Saturation 99 100 99 08/27/19 08/27/19 08/27/19 21:00 22:10 23:00 Temperature Heart Rate Heart Rate [ 116 H 104 H 105 H Monitoring electrodes] Respiratory 19 18 18 Rate Blood Pressure Blood Pressure 103/68 82/51 L 94/49 L [Right Brachial artery] O2 Saturation 96 100 98 08/28/19 08/28/19 08/28/19 00:00 01:00 02:00 Temperature Heart Rate Heart Rate [ 103 H 93 96 Monitoring electrodes] Respiratory 16 16 17 Rate Blood Pressure Blood Pressure 99/56 L 97/64 88/55 L [Right Brachial artery] O2 Saturation 100 99 99 08/28/19 08/28/19 08/28/19 03:00 04:00 04:26 Temperature 37.0 C Heart Rate Heart Rate [ 92 95 98 Monitoring electrodes] Respiratory 20 19 23 Rate Blood Pressure Blood Pressure 91/62 82/58 L [Right Brachial artery] O2 Saturation 100 08/28/19 08/28/19 08/28/19 05:00 06:00 07:00 Temperature Heart Rate Heart Rate [ 104 H 101 H 92 Monitoring electrodes] Respiratory 20 18 15 Rate Blood Pressure Blood Pressure 93/67 94/55 L 87/53 L [Right Brachial artery] O2 Saturation 100 98 99 08/28/19 08/28/19 08:00 09:56 Temperature 37.3 C Heart Rate Heart Rate [ 98 105 H Monitoring electrodes] Respiratory 21 26 H Rate Blood Pressure Blood Pressure 96/63 97/66 [Right Brachial artery] O2 Saturation 100 100 Oxygen O2 Source Room air I&O (Last 24 Hrs): Intake and Output Totals x24h 08/26/19 08/27/19 08/28/19 23:59 23:59 23:59 Intake Total 4100.000 2068.333 Output Total 750 1250 Balance 3350.000 818.333 General: Alert, Oriented x3 HEENT: Atraumatic, Mucous membr. moist/pink Neck: Supple Neuro: Alert, Non Focal Cardiovascular: Regular rate Respiratory: No respiratory distress Abdomen: Soft Extremities: No edema, Other (Multiple "cut negrete" on arms, in various stages of healing) - Results Results: Laboratory Results WBC 5.4 x10^3/uL (4.8-10.8) 08/28/19 04:51 RBC 3.87 10^6/uL (4.20-5.40) L 08/28/19 04:51 Hgb 11.6 g/dL (12.0-16.0) L 08/28/19 04:51 Hct 35.4 % (37.0-47.0) L 08/28/19 04:51 MCV 91.5 fL (81.0-99.0) 08/28/19 04:51 MCH 30.0 pg (27.0-31.0) 08/28/19 04:51 MCHC 32.8 g/dL (32.0-36.0) 08/28/19 04:51 RDW 13.8 % (12.0-15.0) 08/28/19 04:51 Plt Count 258 10^3/uL (130-450) 08/28/19 04:51 MPV 9.5 fL (7.9-10.8) 08/28/19 04:51 Neut # (Auto) 2.6 10^3/uL (1.5-6.6) 08/28/19 04:51 Lymph # (Auto) 2.2 10^3/uL (1.5-3.5) 08/28/19 04:51 [place] # (Auto) 0.4 10^3/uL (0.0-1.0) 08/28/19 04:51 Eos # (Auto) 0.1 10^3/uL (0.0-0.7) 08/28/19 04:51 Baso # (Auto) 0.0 10^3/uL (0.0-0.1) 08/28/19 04:51 Absolute Nucleated RBC 0.00 x10^3/uL 08/28/19 04:51 Nucleated RBC % 0.0 /100WBC 08/28/19 04:51 VBG pH 7.457 (7.31-7.41) H 08/27/19 16:05 VBG pCO2 26.8 mmHg (41-51) L 08/27/19 16:05 VBG pO2 56.0 mmHg (25-47) H 08/27/19 16:05 VBG HCO3 18.5 mmol/L (23-28) L 08/27/19 16:05 VBG Total CO2 19.3 mmol/L (24-29) L 08/27/19 16:05 VBG O2 Saturation 90.6 % (60-80) H 08/27/19 16:05 VBG Base Excess -3.9 mmol/L (-2 - +2) L 08/27/19 16:05 Sodium 138 mmol/L (135-145) 08/28/19 04:51 Potassium 3.4 mmol/L (3.5-5.0) L 08/28/19 04:51 Chloride 105 mmol/L (101-111) 08/28/19 04:51 Carbon Dioxide 24 mmol/L (21-32) 08/28/19 04:51 Anion Gap 9.0 (6-13) 08/28/19 04:51 BUN 17 mg/dL (6-20) 08/28/19 04:51 Creatinine 0.9 mg/dL (0.4-1.0) 08/28/19 04:51 Estimated GFR (MDRD) 75 (>89) L 08/28/19 04:51 Glucose 116 mg/dL (70-100) H 08/28/19 04:51 Calcium 7.9 mg/dL (8.5-10.3) L 08/28/19 04:51 Phosphorus 2.8 mg/dL (2.5-4.6) 08/28/19 04:51 Magnesium 2.1 mg/dL (1.7-2.8) 08/28/19 04:51 Total Bilirubin 0.4 mg/dL (0.2-1.0) 08/28/19 04:51 Direct Bilirubin < 0.1 mg/dL (0.1-0.5) L 08/28/19 04:51 AST 37 IU/L (10-42) 08/28/19 04:51 ALT 58 IU/L (10-60) 08/28/19 04:51 Alkaline Phosphatase 54 IU/L (42-121) 08/28/19 04:51 Total Protein 5.9 g/dL (6.7-8.2) L 08/28/19 04:51 Albumin 3.3 g/dL (3.2-5.5) 08/28/19 04:51 Globulin 2.6 g/dL (2.1-4.2) 08/28/19 04:51 Albumin/Globulin Ratio 1.3 (1.0-2.2) 08/27/19 09:44 Lipase 33 U/L (22-51) 08/27/19 09:44 TSH 0.30 uIU/mL (0.34-5.60) L 08/27/19 09:44 Urine Color YELLOW 08/27/19 11:55 Urine Clarity SL. CLOUDY (CLEAR) 08/27/19 11:55 Urine pH 6.0 PH (5.0-7.5) 08/27/19 11:55 Ur Specific [place] 1.025 (1.002-1.030) 08/27/19 11:55 Urine Protein 100 mg/dL (NEGATIVE) H 08/27/19 11:55 Urine Glucose (UA) NEGATIVE mg/dL (NEGATIVE) 08/27/19 11:55 Urine Ketones >=80 mg/dL (NEGATIVE) H 08/27/19 11:55 Urine Occult Blood NEGATIVE (NEGATIVE) 08/27/19 11:55 Urine Nitrite NEGATIVE (NEGATIVE) 08/27/19 11:55 Urine Bilirubin NEGATIVE (NEGATIVE) 08/27/19 11:55 Urine Urobilinogen 0.2 (NORMAL) E.U./dL (NORMAL) 08/27/19 11:55 Ur Leukocyte Esterase NEGATIVE (NEGATIVE) 08/27/19 11:55 Urine RBC 0-5 /HPF (0-5) 08/27/19 11:55 Urine WBC 0-3 /HPF (0-5) 08/27/19 11:55 Ur Squamous Epith Cells MANY Squamous (<= Few) H 08/27/19 11:55 Urine Bacteria Few /HPF (None Seen) 08/27/19 11:55 Ur Microscopic Review INDICATED 08/27/19 11:55 Urine Culture Comments NOT INDICATED 08/27/19 11:55 Urine HCG, Qual NEGATIVE 08/27/19 11:55 Nasal Screen MRSA (PCR) NEGATIVE (NEGATIVE) 08/27/19 14:09 Salicylates 28.5 mg/dL 08/28/19 04:51 Urine Opiates Screen NEGATIVE (NEGATIVE) 08/27/19 11:55 Ur Oxycodone Screen NEGATIVE (NEGATIVE) 08/27/19 11:55 Urine Methadone Screen NEGATIVE (NEGATIVE) 08/27/19 11:55 Ur Propoxyphene Screen NEGATIVE (NEGATIVE) 08/27/19 11:55 Acetaminophen < 10 ug/mL (10-30) L 08/27/19 09:44 Ur Barbiturates Screen NEGATIVE (NEGATIVE) 08/27/19 11:55 Ur Tricyclics Screen NEGATIVE (NEGATIVE) 08/27/19 11:55 Ur Phencyclidine Scrn NEGATIVE (NEGATIVE) 08/27/19 11:55 Ur Amphetamine Screen POSITIVE (NEGATIVE) H 08/27/19 11:55 U Methamphetamines Scrn POSITIVE (NEGATIVE) H 08/27/19 11:55 U Benzodiazepines Scrn NEGATIVE (NEGATIVE) 08/27/19 11:55 Urine Cocaine Screen NEGATIVE (NEGATIVE) 08/27/19 11:55 U Cannabinoids Screen NEGATIVE (NEGATIVE) 08/27/19 11:55 Ethyl Alcohol < 5.0 mg/dL 08/27/19 09:44 - Procedures Procedures: Procedures INSPECTION OF PELVIC CAVITY, PERC ENDO APPROACH (02/28/19) REMOVAL OF CONTRACEPTIVE DEVICE FROM UTERUS AND CERVIX, ENDO (02/28/19)
[2019-08-28] MEDS ORDERED: BENZOCAINE/MENTHOL LOZENGE MM PRN (14:53)
[2019-08-28 17:24] LABS: FOLATE 8.02 ng/mL (5.90 - >24.8)
--- NOTE | 2019-08-28 20:47 | PROVIDER PROGRESS NOTE ---
Certified Orthoptist Note - Certified Orthoptist Note Certified Orthoptist Note: S: I am title inspector and RN called for me to see patient. She has been admitted for ASA OD and bicarb drip has been stopped. ASA levels dropping. Stable hemodaynamically and may be dc'd tomorrow. sudden onset of epigastric and LUQ pain. Lst BM yesterday. Still w flatus today. Pain started abruptly and has been non stop, increasing in intensity. Touching her abd wall hurts. Has a hx of kidney stones and this is not the same pain. Pain started after eating sandwich. Nonstop, not going away. Selected Entries O: 08/28/19 19:51 Temperature 37.4 C Heart Rate [ 106 H Monitoring electrodes] Respiratory 14 Rate Blood Pressure 110/69 [Right Brachial artery] O2 Saturation 100 she is laying on her right side, curled n position. As I lay her on her back, winces w painof moving. Abd is soft, quiet bowel sounds, not distended. Moderate epigastric and LUQ pain with palpation. Flatus is present. No rebound, mild guarding. Laboratory Tests 08/27/19 08/27/19 08/27/19 09:44 11:55 12:16 Salicylates 64.1 H* 48.8 H* Acetaminophen < 10 L Ur Amphetamine Screen POSITIVE H U Methamphetamines Scrn POSITIVE H 08/28/19 08/28/19 04:51 16:36 Salicylates 28.5 10.0 Acetaminophen Ur Amphetamine Screen U Methamphetamines Scrn Laboratory Tests 08/28/19 04:51 Sodium 138 Potassium 3.4 L BUN 17 Creatinine 0.9 A/P sudden epigastric pain in patient who had NSAID OD and (+) meth use. Abd appears benign on exam with continued BS but she may have new gastritis or perf in view of her hx. She states this is not kidney stone pain. Not colicky or waxing. This is constant and severe. PPI IV check CT abd
--- NOTE | 2019-08-28 22:14 | CT Report ---
Reason: sudden epigastric and LUQ pain p ASA OD Procedure Date: 08/28/2019 Accession Number: [id number] / [id number] Procedure: CT - ABDOMEN WO CPT Code: FULL RESULT: EXAM: CT ABDOMEN EXAM DATE: 08/28/2019 09:14 PM. CLINICAL HISTORY: Sudden epigastric and LUQ pain p ASA OD. COMPARISON: ABDOMEN/PELVIS W/ 02/28/2019 1:08 PM. TECHNIQUE: Routine helical CT imaging was performed through the abdomen. IV contrast: Enteric contrast: No. Reconstruction: Coronal and sagittal. In accordance with CT protocol optimization, one or more of the following dose reduction techniques were utilized for this exam: automated exposure control, adjustment of mA and/or KV based on patient size, or use of iterative reconstructive technique. FINDINGS: Lung Bases: Unremarkable. Liver: Normal. No masses. Gallbladder/Bile Ducts: Resected Spleen: Normal. Pancreas: Normal. Adrenal Glands: Normal. Kidneys: Normal. No masses or hydronephrosis. Peritoneal Cavity/Bowel: The stomach is grossly distended with food products and to a limited extent there is a large amount of stool seen within the imaged portions of the colon. There is no definite evidence for small bowel distention. There is no free air in the abdomen. Vasculature: No aneurysms or other significant abnormality. Bones: No significant abnormality. Other: None. IMPRESSION: 1. Significant distention of the stomach with food products. 2. Large amount of stool seen within the visualized portions of the colon. 3. Prior cholecystectomy. RADIA
[2019-08-28] MEDS ORDERED: BISACODYL 10 MG SUPP PR PRN (23:01)
[2019-08-29] MEDS: SODIUM CHLORIDE FLUSH 0.9% 10 ML SYRINGE IVP SCH ×3 (04:27→15:53)
[2019-08-29 05:41] LABS: CALCIUM 8.5 mg/dL (8.5-10.3); CREATININE 0.9 mg/dL (0.4-1.0); MAGNESIUM 2.1 mg/dL (1.7-2.8); PHOSPHORUS 4.2 mg/dL (2.5-4.6)
[2019-08-29] MEDS: SODIUM CHLORIDE FLUSH 0.9% 10 ML SYRINGE IVP PRN ×2 (06:55→19:44)
[2019-08-29] MEDS: PANTOPRAZOLE 40 MG VIAL IVP SCH (06:55)
[2019-08-29] MEDS: NICOTINE 14 MG PATCH TOP SCH (13:00)
[2019-08-29] MEDS: LORazepam 2 MG/ML VIAL IVP PRN (14:51)
--- NOTE | 2019-08-29 17:25 | Discharge Plan ---
Discharge Plan Problem Reviewed?: Yes Disposition: 02 Transfer Acute Care Hosp Condition: Stable Diet: Regular (Low fiber) No Smoking: If you smoke, Please STOP! Call for help. Follow-up with: Severo Jara MD [Primary Care Provider] -
--- NOTE | 2019-08-29 17:34 | DISCHARGE SUMMARY ---
Discharge Summary Admit Date: 08/27/19 Discharge Date: 08/30/19 Discharging Provider: Dr Coco Koehler Primary Care Provider: Dr Severo Jara Code Status: Attempt Resuscitation Condition at Discharge: Stable Discharge Disposition: 02 Transfer Acute Care Hosp Discharge Facility Name: [facility] - DIAGNOSES Admission Diagnoses: (1) Intentional aspirin overdose (2) Suicide attempt (3) Increased anion gap metabolic acidosis (4) Methamphetamine use (5) Subcutaneous mass of left forearm Discharge Diagnoses with Status of Each Condition: See below - HPI History of Present Illness: From the admission H&P of Dr Harry Gregory: This is a 28 year old female with a past medical history significant for depression, multiple suicide attempts in the past, and substance abuse who presents from home after she intentionally overdosed on Aspirin yesterday around noon time. She reports taking a handful of 325mg tablets of Aspirin which she believes ended up being 30-40 tablets. She developed nausea and nonbloody emesis along with severe tinnitus in both ears as well as some hearing difficulties. She reports she last attempted to take her life about 3 months ago when she took 2-3 handful of ibuprofen tablets but that she did not seek medical attention at that time. She reports being last hospitalized for depression about 5 years ago. She has not taken any antidepressants in one year because none of them have work for her in the past except for marijuana. She last saw a Psychiatrist here in [place] about 3 months ago. She currently denies the thought of trying to harm herself. She uses illicit drugs and admits to using methamphetamines three days ago. Denies IV drug use and that she only smokes or snorts. She currently lives with a friend who she is helping renovate their house. She does not have a job and is otherwise homeless. She has two children who live with their grandmother (this patient's mother), that she sees every once in a while when her mother will allow her. She continues to engage in nonsuicidal self injury including cutting her wrists. In the emergency department, she was found be tachycardic but blood pressure was stable. Her labs revealed a salicylate level of 64.1. Her renal function and potassium were stable. Her pH was 7.368 on a venous blodd gas. Nephrology was contacted by the ER Physician to see if dialysis was warranted. They felt there were no indications for dialysis and recommended a bicarbonate infusion. She was be admitted to the ICU for further management. Poison Control was also contacted. - HOSPITAL COURSE Hospital Course: (1) Suicide attempt She was in the ICU and had 1:1 monitoring continuously. She unfortunately has multiple prior episodes of suicide attempts and was previously hospitalized for her severe depression. When she was medically cleared, she was seen by the hospital [facility] for a mental health eval. The patient was not ammenable to voluntary psych admission, and was felt to still be a suicide risk, therefore she was seen by DCR staff, was detained for inpatient stay, and was accepted in transfer to [facility], an inpatient psychatric facility (2) Depression. She told me that she was unhappy with her psychiatric provider, and that she wanted someone else to work with her. She admitted that she used Meth to self- medicate the depression and uses marijuana for this as well. (3) Intentional aspirin overdose She was on an iv bicarbonate drip and the salicylate level followed, until it was is less than 6. There were no renal complications. Poison control gave advice. (4) Increased anion gap metabolic acidosis This was caused by salicylic acid and was treated with bicarb drip until it resolved. (5) Ototoxicity Related to aspirin OD. She had tinnitus for 2 days, it resolved by the third day. (6) Hypokalemia This developed from iv bicarb treatment, which causes serum potassium to move intracellular. It was replaced with iv Potassium supplements until normal. (7) Methamphetamine use At admission she reported that her last use of Meth was 2 days before admission. She did not go through any Meth withdrawal, such as somnolence or lethargy. (8) Tachycardia She was tachycardic to 110 intermittently, likely related to Meth and tobacco use, metabolic derangements, mild dehydration and anxiety. On her third day of hospitalization, she finally agreed to get a topical Nicotine patch, since she described strong urges to jhave a cigarette and even had a "panic attack", she thought. She did not want any sedatives for that. A 12-lead EKG was done, and was normal. (9) Tobacco dependance Nicotine patch was ordered, as described above. (10) Anemia This was likely hemodilutional since her Hgb was normal at 15 at admission, and decreased after getting iv fluids, to 11 with a normal MCV. Her serum levels of B12, Folate and Iron were normal. (11) Subcutaneous mass of left forearm She noticed a lump 2 weeks previously of the left forearm. It was mildly tender to palpation but had no signs of infection or erythema, and had the appearance of a deep ecchymosis, with slight purple discoloration and 2 tiny pin hole negrete seen. It was managed with warm compresses and elevation. (12) Abdominal pain. This was felt to be related to gas or food intolerance as it occurred after a certain meal, and abdominal imaging was benign. The pain resolved with laxatives and low fiber food. - ALLERGIES Allergies/Adverse Reactions: Allergies Allergy/AdvReac Type Severity Reaction Status Date / Time coconut Allergy Unknown Verified 03/16/19 05:09 lamotrigine [From Lamictal] Allergy Rash Verified 03/16/19 05:09 - MEDICATIONS Home Medications: Ambulatory Orders Medication Instructions Recorded Confirmed No Known Home Medications 03/01/19 08/30/19 - PHYSICAL EXAM AT DISCHARGE General Appearance: positive: No acute distress, Alert Eyes Bilateral: positive: Normal inspection ENT: positive: ENT inspection nml Neck: positive: Nml inspection, No JVD Respiratory: positive: No respiratory distress Cardiovascular: positive: Regular rate & rhythm Abdomen: positive: Non-tender Extremities: positive: No pedal edema, Other (Multiple negrete from self-cutting, in various stages of healing.) Neurologic/Psychiatric: positive: Oriented x3 - LABS Result Diagrams: 08/28/19 04:51 08/29/19 04:40 - DIAGNOSTIC IMAGING Diagnostic Imaging Results: Final report reviewed Diagnostic Imaging Results Comments: EKG showed: normal sinus rhythm, and was within normal limits. - FOLLOW UP Follow Up: See PCP and mental health provider, which will be determined after discharge from - TIME SPENT Time Spent in Discharge (Minutes): 50
[2019-08-29] MEDS: ONDANSETRON 4 MG/2 ML VIAL IVP PRN (19:44)
[2019-08-30] MEDS: POLYETHYLENE GLYCOL 3350 17 GM PACKET PO SCH ×2 (01:17→08:17)
[2019-08-30] MEDS: SODIUM CHLORIDE FLUSH 0.9% 10 ML SYRINGE IVP SCH ×2 (01:17→08:17)
[2019-08-30] MEDS: LORazepam 2 MG/ML VIAL IVP PRN ×3 (02:51→13:39)
[2019-08-30] MEDS: SODIUM CHLORIDE FLUSH 0.9% 10 ML SYRINGE IVP PRN ×5 (02:52→11:05)
[2019-08-30] MEDS: PANTOPRAZOLE 40 MG VIAL IVP SCH (07:07)
[2019-08-30] MEDS: NICOTINE 14 MG PATCH TOP SCH (08:17)
--- NOTE | 2019-08-30 10:41 | PROVIDER PROGRESS NOTE ---
Assessment/Plan - Problem List (1) Suicide attempt Assessment/Plan: The patient was seen by SW and was not amenable to voluntary psych admission, and was felt to still be a suicide risk, therefore she was seen by a DCR (rowena Leonardo(. The DCR staff are working on having her transferred for inpatient psych, and until then, she is detained and must be an inpatient. (2) Intentional aspirin overdose Qualifiers: Encounter type: subsequent encounter Qualified Code(s): T39.012D - Poisoning by aspirin, intentional self-harm, subsequent encounter Assessment/Plan: SW did feel that this was an attempt at suicide by the patient. The clinical problems of serum aspirin toxicity have been resolved. (3) Depression Qualifiers: Depression Type: unspecified Qualified Code(s): F32.9 - Major depressive disorder, single episode, unspecified Assessment/Plan: The patient appears anxious today: wants a cigarette, refused a Nicotine patch then eventually agreed, described to me that she had a "panic attack" when she met with the SW. She also admits that the current psych provider is not helpful and she wants a new psych provider. (4) Anemia Assessment/Plan: Stable Hgb which dropped from hemodilution, and serum levels, no replacement needed. (5) Methamphetamine use Assessment/Plan: The patient told me today, that she uses Meth and marijuana to self medicate her depression. (6) Tobacco dependence Assessment/Plan: As above in #3 (7) Tachycardia Assessment/Plan: She had a HR of 110 at admission due to pre-renal azotemia (dehydration). Now she runs HRs of 90-100, likely due to anxiety. EKG done today: WNL (8) Ototoxicity Qualifiers: Laterality: bilateral Qualified Code(s): H93.8X3 - Other specified disorders of ear, bilateral Assessment/Plan: Resolved (9) Hypokalemia Assessment/Plan: Resolved (10) Increased anion gap metabolic acidosis Assessment/Plan: Resolved - Current Meds Current Meds: Current Medications Generic Name Dose Route Start Last Admin Trade Name Freq PRN Reason Stop Dose Admin Bisacodyl 10 mg 08/28/19 23:01 08/29/19 04:27 Dulcolax Supp RI 10 mg DAILY PRN Administration Constipation Lorazepam 0.5 mg 08/27/19 22:25 08/30/19 09:59 Ativan Inj (Vial) IVP 0.5 mg Q2H PRN Administration Anxiety Nicotine 1 patch 08/29/19 13:00 08/30/19 08:17 Nicoderm TOP 1 patch DAILY DREW Administration Ondansetron HCl 4 mg 08/27/19 12:56 08/29/19 19:44 Zofran Inj IVP 4 mg Q6HR PRN Administration Nausea / Vomiting Pantoprazole Sodium 40 mg 08/27/19 15:39 08/30/19 07:07 Protonix IVP 40 mg QDAC DREW Administration Polyethylene Glycol 17 gm 08/29/19 20:50 08/30/19 08:17 Miralax PO 17 gm DAILY DREW Administration Sodium Chloride 10 ml 08/27/19 17:00 08/30/19 08:17 Normal Saline Flush 0.9% IVP 10 ml 0100,0900,1700 DREW Administration Sodium Chloride 10 ml 08/27/19 12:56 08/30/19 09:59 Normal Saline Flush 0.9% IVP 10 ml PRN PRN Administration NEEDED PER PROVIDER ORDERS - Lab Result Fish Bone Diagrams: 08/28/19 04:51 08/29/19 04:40 - EKG Results EKG Interpreted Independently: Yes EKG Comparison: No prior EKG EKG Findings: NSR, WNL. - Additional Planning My Orders: My Active Orders 08/29/19 10:11 Shower [RC] PRN 08/29/19 13:00 Nicotine 14 mg Patch [Nicoderm] 1 patch TOP DAILY 08/29/19 13:36 Telemetry-Discontinue [RC] .ONCE 08/29/19 18:20 Discharge [RC] .ONCE Initiate Discharge Checklist [RC] .ONCE 08/29/19 20:50 Polyethylene Glycol 3350 [Miralax] 17 gm PO DAILY 08/30/19 10:40 Transfer [Admit \\ Transfer \\ Status] [RC] .ONCE Subjective - Subjective Patient Reports: Other (Feels anxious, wants to see children, wants a cigarette) Objective Vital Signs: Vital Signs - 24 hr 08/29/19 08/29/19 08/29/19 14:58 17:38 19:30 Temperature 36.8 C Heart Rate [ 99 98 108 H Monitoring electrodes] Respiratory 18 14 20 Rate Blood Pressure 122/90 H 110/69 124/85 H [Right Brachial artery] O2 Saturation 100 99 98 08/30/19 08/30/19 02:18 08:22 Temperature 36.6 C 37.0 C Heart Rate [ 86 95 Monitoring electrodes] Respiratory 22 14 Rate Blood Pressure 117/75 118/84 H [Right Brachial artery] O2 Saturation 100 99 Oxygen O2 Source Room air I&O (Last 24 Hrs): Intake and Output Totals x24h 08/28/19 08/29/19 08/30/19 23:59 23:59 23:59 Intake Total 4020.000 640 730 Output Total 2275 Balance 1745.000 640 730 General: Alert, Oriented x3 HEENT: Mucous membr. moist/pink Neck: Supple Neuro: Non Focal Cardiovascular: Regular rate Respiratory: No respiratory distress Abdomen: No tenderness Extremities: No edema, Other (Multople cut negrete in various stages of healing) - Results Results: Laboratory Results WBC 5.4 x10^3/uL (4.8-10.8) 08/28/19 04:51 RBC 3.87 10^6/uL (4.20-5.40) L 08/28/19 04:51 Hgb 11.6 g/dL (12.0-16.0) L 08/28/19 04:51 Hct 35.4 % (37.0-47.0) L 08/28/19 04:51 MCV 91.5 fL (81.0-99.0) 08/28/19 04:51 MCH 30.0 pg (27.0-31.0) 08/28/19 04:51 MCHC 32.8 g/dL (32.0-36.0) 08/28/19 04:51 RDW 13.8 % (12.0-15.0) 08/28/19 04:51 Plt Count 258 10^3/uL (130-450) 08/28/19 04:51 MPV 9.5 fL (7.9-10.8) 08/28/19 04:51 Neut # (Auto) 2.6 10^3/uL (1.5-6.6) 08/28/19 04:51 Lymph # (Auto) 2.2 10^3/uL (1.5-3.5) 08/28/19 04:51 [place] # (Auto) 0.4 10^3/uL (0.0-1.0) 08/28/19 04:51 Eos # (Auto) 0.1 10^3/uL (0.0-0.7) 08/28/19 04:51 Baso # (Auto) 0.0 10^3/uL (0.0-0.1) 08/28/19 04:51 Absolute Nucleated RBC 0.00 x10^3/uL 08/28/19 04:51 Nucleated RBC % 0.0 /100WBC 08/28/19 04:51 VBG pH 7.457 (7.31-7.41) H 08/27/19 16:05 VBG pCO2 26.8 mmHg (41-51) L 08/27/19 16:05 VBG pO2 56.0 mmHg (25-47) H 08/27/19 16:05 VBG HCO3 18.5 mmol/L (23-28) L 08/27/19 16:05 VBG Total CO2 19.3 mmol/L (24-29) L 08/27/19 16:05 VBG O2 Saturation 90.6 % (60-80) H 08/27/19 16:05 VBG Base Excess -3.9 mmol/L (-2 - +2) L 08/27/19 16:05 Sodium 139 mmol/L (135-145) 08/29/19 04:40 Potassium 4.4 mmol/L (3.5-5.0) 08/29/19 04:40 Chloride 105 mmol/L (101-111) 08/29/19 04:40 Carbon Dioxide 28 mmol/L (21-32) 08/29/19 04:40 Anion Gap 6.0 (6-13) 08/29/19 04:40 BUN 19 mg/dL (6-20) 08/29/19 04:40 Creatinine 0.9 mg/dL (0.4-1.0) 08/29/19 04:40 Estimated GFR (MDRD) 75 (>89) L 08/29/19 04:40 Glucose 97 mg/dL (70-100) 08/29/19 04:40 Calcium 8.5 mg/dL (8.5-10.3) 08/29/19 04:40 Phosphorus 4.2 mg/dL (2.5-4.6) 08/29/19 04:40 Magnesium 2.1 mg/dL (1.7-2.8) 08/29/19 04:40 Iron 51 ug/dL (28-170) 08/28/19 16:36 TIBC 290 ug/dL (250-450) 08/28/19 16:36 % Saturation 18 % (20-50) L 08/28/19 16:36 Transferrin 207 mg/dL (192-382) 08/28/19 16:36 Total Bilirubin 0.4 mg/dL (0.2-1.0) 08/28/19 04:51 Direct Bilirubin < 0.1 mg/dL (0.1-0.5) L 08/28/19 04:51 AST 37 IU/L (10-42) 08/28/19 04:51 ALT 58 IU/L (10-60) 08/28/19 04:51 Alkaline Phosphatase 54 IU/L (42-121) 08/28/19 04:51 Total Protein 5.9 g/dL (6.7-8.2) L 08/28/19 04:51 Albumin 3.3 g/dL (3.2-5.5) 08/28/19 04:51 Globulin 2.6 g/dL (2.1-4.2) 08/28/19 04:51 Albumin/Globulin Ratio 1.3 (1.0-2.2) 08/27/19 09:44 Lipase 33 U/L (22-51) 08/27/19 09:44 Vitamin B12 320 pg/mL (180-914) 08/28/19 16:36 Folate 8.02 ng/mL (5.90 - >24.8) 08/28/19 16:36 TSH 0.30 uIU/mL (0.34-5.60) L 08/27/19 09:44 Urine Color YELLOW 08/27/19 11:55 Urine Clarity SL. CLOUDY (CLEAR) 08/27/19 11:55 Urine pH 6.0 PH (5.0-7.5) 08/27/19 11:55 Ur Specific [place] 1.025 (1.002-1.030) 08/27/19 11:55 Urine Protein 100 mg/dL (NEGATIVE) H 08/27/19 11:55 Urine Glucose (UA) NEGATIVE mg/dL (NEGATIVE) 08/27/19 11:55 Urine Ketones >=80 mg/dL (NEGATIVE) H 08/27/19 11:55 Urine Occult Blood NEGATIVE (NEGATIVE) 08/27/19 11:55 Urine Nitrite NEGATIVE (NEGATIVE) 08/27/19 11:55 Urine Bilirubin NEGATIVE (NEGATIVE) 08/27/19 11:55 Urine Urobilinogen 0.2 (NORMAL) E.U./dL (NORMAL) 08/27/19 11:55 Ur Leukocyte Esterase NEGATIVE (NEGATIVE) 08/27/19 11:55 Urine RBC 0-5 /HPF (0-5) 08/27/19 11:55 Urine WBC 0-3 /HPF (0-5) 08/27/19 11:55 Ur Squamous Epith Cells MANY Squamous (<= Few) H 08/27/19 11:55 Urine Bacteria Few /HPF (None Seen) 08/27/19 11:55 Ur Microscopic Review INDICATED 08/27/19 11:55 Urine Culture Comments NOT INDICATED 08/27/19 11:55 Urine HCG, Qual NEGATIVE 08/27/19 11:55 Nasal Screen MRSA (PCR) NEGATIVE (NEGATIVE) 08/27/19 14:09 Salicylates < 6.0 mg/dL 08/28/19 22:26 Urine Opiates Screen NEGATIVE (NEGATIVE) 08/27/19 11:55 Ur Oxycodone Screen NEGATIVE (NEGATIVE) 08/27/19 11:55 Urine Methadone Screen NEGATIVE (NEGATIVE) 08/27/19 11:55 Ur Propoxyphene Screen NEGATIVE (NEGATIVE) 08/27/19 11:55 Acetaminophen < 10 ug/mL (10-30) L 08/27/19 09:44 Ur Barbiturates Screen NEGATIVE (NEGATIVE) 08/27/19 11:55 Ur Tricyclics Screen NEGATIVE (NEGATIVE) 08/27/19 11:55 Ur Phencyclidine Scrn NEGATIVE (NEGATIVE) 08/27/19 11:55 Ur Amphetamine Screen POSITIVE (NEGATIVE) H 08/27/19 11:55 U Methamphetamines Scrn POSITIVE (NEGATIVE) H 08/27/19 11:55 U Benzodiazepines Scrn NEGATIVE (NEGATIVE) 08/27/19 11:55 Urine Cocaine Screen NEGATIVE (NEGATIVE) 08/27/19 11:55 U Cannabinoids Screen NEGATIVE (NEGATIVE) 08/27/19 11:55 Ethyl Alcohol < 5.0 mg/dL 08/27/19 09:44 - Procedures Procedures: Procedures INSPECTION OF PELVIC CAVITY, PERC ENDO APPROACH (02/28/19) REMOVAL OF CONTRACEPTIVE DEVICE FROM UTERUS AND CERVIX, ENDO (02/28/19)
[2019-08-30] MEDS: ONDANSETRON 4 MG/2 ML VIAL IVP PRN (11:03)
--- NOTE | 2019-08-30 11:10 | Discharge Plan ---
Discharge Plan Problem Reviewed?: Yes Disposition: 02 Transfer Acute Care Hosp Condition: Stable Diet: Regular (Low fiber) No Smoking: If you smoke, Please STOP! Call for help. Follow-up with: Severo Jara MD [Primary Care Provider] -
[2019-08-30 12:57] VITALS: BP 122/86
[2019-08-30] MEDS ORDERED: POLYETHYLENE GLYCOL 3350 17 GM PACKET PO SCH (19:38)
== END 2019-08-30 14:23 | disposition short-term general hospital (02) | DRG 918 ==
LOC: ED 09:20 → ICU 12:56
PROVIDERS: ADMIT Internal Medicine; ATTEND Internal Medicine
DX: T39.012A Poisoning by aspirin, intentional self-harm, initial encounter (principal); E87.2 Acidosis; H91.09 Ototoxic hearing loss, unspecified ear; H93.19 Tinnitus, unspecified ear; R11.2 Nausea with vomiting, unspecified; S51.812A Laceration without foreign body of left forearm, initial encounter; X78.9XXA Intentional self-harm by unspecified sharp object, initial encounter; Y92.9 Unspecified place or not applicable; F15.10 Other stimulant abuse, uncomplicated; F31.9 Bipolar disorder, unspecified; F41.9 Anxiety disorder, unspecified; R00.0 Tachycardia, unspecified; E86.0 Dehydration; R10.12 Left upper quadrant pain; F17.210 Nicotine dependence, cigarettes, uncomplicated; R22.32 Localized swelling, mass and lump, left upper limb; J45.909 Unspecified asthma, uncomplicated; Z91.5 Personal history of self-harm
CPT/HCPCS: 36415; 51702; 71045; 74150; 80048; 80053; 80076; 80306; 80307; 80320; 80329; 81001; 81025; 82607; 82746; 82803; 83540; 83690; 83735; 84100; 84443; 84466; 85025; 87150; 93005; 96361; 96365; 96375; 99285; A9270; J2060; 81003; 87086

== ENCOUNTER 2020-03-16 20:50 | Emergency (ER) | payer MEDICAID, OTHER ==
--- NOTE | 2020-03-16 20:59 | ED Physician Documentation ---
History of Present Illness - Stated complaint Stated Complaint: BS CHECK - History obtained from History obtained from: Patient (She walks a long way today and now feels dizzy, she wonders if her blood sugar might be high or low. She feels okay now that she is in the department. 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 : None HEENT: None Psych: Depression, Anxiety, Bipolar disorder, Other (Self-cutting behavior) Musculoskeletal: None Derm: None - Past Surgical History Past Surgical History: Yes General: Cholecystectomy HEENT: Tonsil/Adenoidectomy - Present Medications Home Medications: Ambulatory Orders Medication Instructions Recorded Confirmed Sertraline [Zoloft] 50 mg PO QPM 03/16/20 03/16/20 - Allergies Allergies/Adverse Reactions: Allergies Allergy/AdvReac Type Severity Reaction Status Date / Time coconut Allergy Unknown Verified 03/16/20 21:02 lamotrigine [From Lamictal] Allergy Rash Verified 03/16/20 21:02 - Social History Does the pt smoke?: No Smoking Status: Current every day smoker Does the pt drink ETOH?: No Does the pt have substance abuse?: Yes Substance Use and Type: Meth - Immunizations Immunizations are current?: Yes - POLST Patient has POLST: No POLST Status: Full Code PD ED PE NORMAL - Vitals Vital signs reviewed: Yes - General General: Alert and oriented X 3, No acute distress - Respiratory Respiratory: No respiratory distress - Abdomen Abdomen: Non tender - Neuro Neuro: Alert and oriented X 3, 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 Her fingerstick blood sugar was 86. Departure - Departure Disposition: 01 Home, Self Care Clinical Impression: Dehydration after exertion Condition: Good Record reviewed to determine appropriate education?: Yes Instructions: ED Dehydration Comments: Your blood sugar is normal, drink plenty of fluids. Return for new or worsening symptoms. Discharge Date/Time: 03/16/20 21:17
[2020-03-16 21:02] VITALS: BP 139/97
== END 2020-03-16 21:17 | disposition home or self-care (01) ==
LOC: ED 20:50
DX: E86.0 Dehydration (principal)
CPT/HCPCS: 99281; 99283

== ENCOUNTER 2020-05-02 03:22 | Outpatient (CLI) | payer MEDICAID | END 2020-05-02 03:23 | disposition critical access hospital (66) | LOC: EMS 03:22 | PROVIDERS: ATTEND Surgery | DX: R55 Syncope and collapse (principal); R73.09 Other abnormal glucose; R53.1 Weakness | CPT/HCPCS: A0425; A0429; A0999 ==

== ENCOUNTER 2020-05-02 03:53 | Emergency (ER) | payer MEDICAID ==
--- NOTE | 2020-05-02 04:15 | ED Physician Documentation ---
PD HPI SYNCOPE - Stated complaint Stated Complaint: SYNCOPE - Chief complaint Chief Complaint: Neuro - History obtained from History obtained from: Patient - History of Present Illness Witnessed: Unwitnessed Timing - onset: How many minutes ago (approximately 30 minutes [employer]TE[employer]) Duration: Unknown Associated symptoms: None Injury occurred: None - Additional information Additional information: syncopal episode in bathroom at [facility] ([place]). Patient's blood sugar (checked by medics) was 69; she was awake on their arrival, given PO glucose, recheck of blood sugar en route to ED was 62 but is 108 on ED arrival. Review of Systems Constitutional: denies: Fever, Chills, Sweats Eyes: reports: Reviewed and negative Cardiac: reports: Reviewed and negative Respiratory: reports: Reviewed and negative GI: reports: Abdominal Pain (bilateral flank pain, intermittent x 2 weeks), Nausea. denies: Vomiting : reports: Other (possibly ). denies: Dysuria, Frequency Musculoskeletal: reports: Extremity pain (LLE (anterior tibial surface, sustained injury 2-3 weeks ago, fell and struck the LLE against driftwood)). denies: Back pain Neurologic: reports: Syncope. 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 : None HEENT: None Psych: Depression, Anxiety, Bipolar disorder, Other Musculoskeletal: None Derm: None Other Past Medical History: SA; SI & OD; Hospitalized for MHE - Past Surgical History Past Surgical History: Yes General: Cholecystectomy HEENT: Tonsil/Adenoidectomy - Present Medications Home Medications: Ambulatory Orders Medication Instructions Recorded Confirmed Nitrofurantoin Monohyd/M-Cryst 100 mg PO BID #10 capsule 05/02/20 [Macrobid 100 mg Capsule] Ondansetron Odt [Zofran] 4 mg TL Q6H PRN #10 tablet 05/02/20 - Allergies Allergies/Adverse Reactions: Allergies Allergy/AdvReac Type Severity Reaction Status Date / Time lamotrigine [From Lamictal] Allergy Rash Verified 05/02/20 04:16 - Social History Does the pt smoke?: No Smoking Status: Never smoker Does the pt drink ETOH?: No Does the pt have substance abuse?: Yes - Immunizations Immunizations are current?: Yes - POLST Patient has POLST: No POLST Status: Full Code PD ED PE NORMAL - Vitals Vital signs reviewed: Yes - General General: Alert and oriented X 3, No acute distress, Well developed/nourished - HEENT HEENT: Atraumatic, PERRL, EOMI, Moist mucous membranes - Neck Neck: Supple, no meningeal sign, No bony TTP - Cardiac Cardiac: RRR, No murmur, No gallop, No rub - Respiratory Respiratory: No respiratory distress, Clear bilaterally - Abdomen Abdomen: Soft, Non tender, Non distended - Back Back: No CVA TTP, No spinal TTP - Derm Derm: Normal color, Warm and dry - Neuro Neuro: Alert and oriented X 3, 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 2-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, No motor deficit, No sensory deficit, Normal speech Eye Opening: Spontaneous Motor: Obeys Commands Verbal: Oriented GCS Score: 15 PD ED PE EXPANDED - Extremities DIANNA LE visual: 1 - swelling, tenderness Results - Vitals Vitals: Vital Signs - 24 hr 05/02/20 08:00 Heart Rate 83 Respiratory 16 Rate Blood Pressure 105/74 O2 Saturation 99 Oxygen O2 Source Room air - Labs Labs: Laboratory Tests 05/02/20 05/02/20 05/02/20 04:42 04:42 04:42 WBC RBC Hgb Hct MCV MCH MCHC RDW Plt Count MPV Neut # (Auto) Lymph # (Auto) [place] # (Auto) Eos # (Auto) Baso # (Auto) Absolute Nucleated RBC Nucleated RBC % Sodium Potassium Chloride Carbon Dioxide Anion Gap BUN Creatinine Estimated GFR (MDRD) Glucose Calcium Total Bilirubin AST ALT Alkaline Phosphatase Total Protein Albumin Globulin Albumin/Globulin Ratio Lipase HCG, Quant 081306.00 Urine Color YELLOW Urine Clarity SL. CLOUDY Urine pH 5.5 Ur Specific [place] >=1.030 H >1.030 Urine Protein NEGATIVE Urine Glucose (UA) NEGATIVE Urine Ketones TRACE Urine Occult Blood TRACE-LYSE Urine Nitrite POSITIVE H Urine Bilirubin NEGATIVE Urine Urobilinogen 0.2 (NORMAL) Ur Leukocyte Esterase SMALL H Urine RBC 0-5 Urine WBC 6-10 H Ur Squamous Epith Cells MOD Squamous H Urine Bacteria Many H Urine Mucus Marked Strands Ur Microscopic Review INDICATED Urine Culture Comments NOT INDICATED Urine HCG, Qual POSITIVE 05/02/20 05/02/20 04:50 04:50 WBC 11.8 H RBC 4.22 Hgb 12.7 Hct 38.4 MCV 91.0 MCH 30.1 MCHC 33.1 RDW 13.8 Plt Count 338 MPV 9.1 Neut # (Auto) 8.1 H Lymph # (Auto) 2.8 [place] # (Auto) 0.8 Eos # (Auto) 0.1 Baso # (Auto) 0.1 Absolute Nucleated RBC 0.00 Nucleated RBC % 0.0 Sodium 135 Potassium 3.3 L Chloride 102 Carbon Dioxide 25 Anion Gap 8.0 BUN 9 Creatinine 0.5 Estimated GFR (MDRD) 146 Glucose 106 H Calcium 9.0 Total Bilirubin 0.5 AST 25 ALT 21 Alkaline Phosphatase 57 Total Protein 7.9 Albumin 4.4 Globulin 3.5 Albumin/Globulin Ratio 1.3 Lipase 32 HCG, Quant Urine Color Urine Clarity Urine pH Ur Specific [place] Urine Protein Urine Glucose (UA) Urine Ketones Urine Occult Blood Urine Nitrite Urine Bilirubin Urine Urobilinogen Ur Leukocyte Esterase Urine RBC Urine WBC Ur Squamous Epith Cells Urine Bacteria Urine Mucus Ur Microscopic Review Urine Culture Comments Urine HCG, Qual - Rads (name of study) left tib/fib xrays Radiology: Prelim report reviewed, See rad report 1st trimester US Radiology: Prelim report reviewed, See rad report PD MEDICAL DECISION MAKING - ED course Complexity details: reviewed old records, reviewed results, re-evaluated patient, considered differential, d/w patient ED course: presents due to syncope. Blood sugar is in 60s during EMS assessment and transport. During ED workup, also found to have left fibular fracture that appears to be healing (c/w her report of the injury being 2-3 weeks ago and that she has been fully weight-bearing; she refuses my offer to provide splint, BUDDY wrap, crutches). Also found to be , US confirms IUP. Given potassium (PO) for mild hypokalemia, macrobid (and rx) for UTI, given IV fluids and zofran (developed nausea during ED stay). Her blood sugars were normal during ED alexandru luation. Departure - Departure Disposition: 01 Home, Self Care Clinical Impression: Hypokalemia Syncope Qualifiers: Syncope type: unspecified Qualified Code(s): R55 - Syncope and collapse Qualifiers: Weeks of gestation: less than 8 weeks Qualified Code(s): Z3A.01 - Less than 8 weeks gestation of Left fibular fracture Qualifiers: Encounter type: initial encounter Fibula location: shaft Fracture type: closed Fracture morphology: oblique Fracture alignment: nondisplaced Qualified Code(s): S82.435A - Nondisplaced oblique fracture of shaft of left fibula, initial encounter for closed fracture Urinary tract infection Qualifiers: Urinary tract infection type: acute cystitis Hematuria presence: without hematuria Qualified Code(s): N30.00 - Acute cystitis without hematuria Condition: Good Instructions: ED Fx Lower Ext, ED Miscarriage Poss, ED Care, ED Fainting Unkn Cause, ED UTI Cystitis Female Follow-Up: Antoinette Mccarthy MD [Provider Admit Priv/Credential] - Within 1 week Prescriptions: Nitrofurantoin Monohyd/M-Cryst [Macrobid 100 mg Capsule] 100 mg PO BID #10 capsule Ondansetron Odt [Zofran] 4 mg TL Q6H PRN #10 tablet PRN Reason: Nausea / Vomiting Discharge Date/Time: 05/02/20 08:26
[2020-05-02] MEDS ORDERED: SODIUM CHLORIDE 0.9% 1,000 ML IV STA (04:36)
[2020-05-02 05:15] LABS: BASOPHILS # (AUTO) 0.1 10^3/uL (0.0-0.1); BASOPHILS % (AUTO) 0.4 %; EOSINOPHILS # (AUTO) 0.1 10^3/uL (0.0-0.7); EOSINOPHILS % (AUTO) 0.8 %; HGB - HEMOGLOBIN 12.7 g/dL (12.0-16.0); LYMPHOCYTES # (AUTO) 2.8 10^3/uL (1.5-3.5); LYMPHOCYTES % (AUTO) 23.4 %; MEAN CORPUSCULAR HEMOGLOBIN 30.1 pg (27.0-31.0); MEAN CORPUSCULAR HGB CONC 33.1 g/dL (32.0-36.0); MEAN PLATELET VOLUME 9.1 fL (7.9-10.8); MONOCYTES # (AUTO) 0.8 10^3/uL (0.0-1.0); MONOCYTES % (AUTO) 6.4 %; NEUTROPHILS # (AUTO) 8.1 10^3/uL (1.5-6.6); NEUTROPHILS % (AUTO) 68.7 %; PLT - PLATELET COUNT 338 10^3/uL (130-450); RED BLOOD COUNT 4.22 10^6/uL (4.20-5.40); RED CELL DISTRIBUTION WIDTH 13.8 % (12.0-15.0); WHITE BLOOD COUNT 11.8 x10^3/uL (4.8-10.8)
[2020-05-02 05:22] LABS: BILIRUBIN,URINE NEGATIVE (NEGATIVE); GLUCOSE, URINE (UA) NEGATIVE (NEGATIVE); KETONES,URINE (UA) TRACE mg/dL (NEGATIVE); LEUKOCYTE ESTERASE, URINE SMALL (NEGATIVE); NITRITE,URINE POSITIVE (NEGATIVE); OCCULT BLOOD,URINE TRACE-LYSE (NEGATIVE); PH,URINE 5.5 PH (5.0-7.5); PROTEIN,URINE NEGATIVE (NEGATIVE); UROBILINOGEN,URINE 0.2 (NORMAL) E.U./dL (NORMAL)
[2020-05-02 05:27] LABS: ALBUMIN 4.4 g/dL (3.2-5.5); ALBUMIN/GLOBULIN RATIO 1.3 (1.0-2.2); BILIRUBIN,TOTAL 0.5 mg/dL (0.2-1.0); CREATININE 0.5 mg/dL (0.4-1.0); TOTAL PROTEIN 7.9 g/dL (6.7-8.2)
[2020-05-02 05:33] LABS: CLARITY,URINE SL. CLOUDY (CLEAR)
[2020-05-02 05:34] LABS: HCG UR QUAL POSITIVE
[2020-05-02 05:41] LABS: BACTERIA,URINE Many /HPF (None Seen); MUCUS,URINE Marked Strands; RBC,URINE 0-5 /HPF (0-5); SQUAMOUS EPITHELIAL CELL,UR MOD Squamous (<= Few)
[2020-05-02] MEDS ORDERED: POTASSIUM CHLORIDE 20 MEQ TABLET PO STA (06:04)
[2020-05-02] MEDS ORDERED: ONDANSETRON 4 MG/2 ML VIAL IVP STA (06:04)
[2020-05-02] MEDS ORDERED: NITROFURANTOIN MACRO 100 MG CAPSULE PO STA (06:05)
[2020-05-02 08:08] VITALS: BP 105/74
--- NOTE | 2020-05-02 08:38 | XRAY Report ---
PROCEDURE: Tib/Fib LT INDICATIONS: injury, tenderness TECHNIQUE: 2 views of the tibia and fibula were acquired. COMPARISON: None FINDINGS: Bones: There is an ill-defined nondisplaced lucency within the mid fibular diaphysis. Mild periosteal reaction is present. No suspicious bony lesions. Soft tissues: No suspicious soft tissue calcifications or masses. IMPRESSION: Ill-defined mid fibular nondisplaced lucency with mild periosteal reaction most consistent with subac hamilton fracture. Continued interval follow-up imaging is recommended. The above findings are concordant with preliminary report. Reviewed by: Shirley Cordero MD on 05/02/2020 8:36 AM PDT Approved by: Shirley Cordero MD on 05/02/2020 8:36 AM PDT Station ID: [id number]
--- NOTE | 2020-05-02 09:19 | Ultrasound Report ---
PROCEDURE: OB First Trimester INDICATIONS: , pelvic pain OUTSIDE/PRIOR DATING DATA: Last menstrual period (LMP): Unknown. LMP-based estimated date of delivery (ETELVINA): Unknown. First dating scan (date and location): 05/02/2020. Estimated date of delivery (ETELVINA) from first dating scan: 12/16/2020. TECHNIQUE: Real-time scanning was performed of the fetus and maternal pelvic organs, with image documentation. COMPARISON: None FINDINGS: Embryo: Single live intrauterine is identified with crown-rump length measuring 6 weeks 5 days. This corresponds to gestational age of 7 weeks 3 days. Heart rate measures 130 bpm. Cervix is c losed. There is a small focus of subchorionic hemorrhage measuring 12 x 4 x 5 mm. It is noted that th e gestational sac is somewhat irregular in shape. Measurement variability in dating: +/- 4 weeks by LMP, +/- 7 days by mean sac diameter (use before 6 weeks gestation if crown-rump length not able to be measured), +/- 5 days by crown-rump length (6-12 weeks gestation). Maternal organs: Ovaries demonstrate a left corpus luteal cyst. Limited images through the kidneys d emonstrate no hydronephrosis. IMPRESSION: 1. Single live intrauterine with ultrasound gestational age of 7 weeks 3 days. 2. Irregular contour of the gestational sac with small focus of subchorionic hemorrhage. Continued sh ort interval imaging follow-up is recommended. The above findings are concordant with preliminary report. Reviewed by: Shirley Cordero MD on 05/02/2020 9:18 AM PDT Approved by: Shirley Cordero MD on 05/02/2020 9:18 AM PDT Station ID: [id number]
== END 2020-05-02 08:26 | disposition home or self-care (01) ==
LOC: EDUNIT# → ED 03:53
DX: O99.89 Other specified diseases and conditions complicating pregnancy, childbirth and the puerperium (principal); R55 Syncope and collapse; R11.0 Nausea; O99.281 Endocrine, nutritional and metabolic diseases complicating pregnancy, first trimester; E87.6 Hypokalemia; O9A.211 Injury, poisoning and certain other consequences of external causes complicating pregnancy, first trimester; S82.435A Nondisplaced oblique fracture of shaft of left fibula, initial encounter for closed fracture; W19.XXXA Unspecified fall, initial encounter; O23.11 Infections of bladder in pregnancy, first trimester; Z3A.01 Less than 8 weeks gestation of pregnancy
CPT/HCPCS: 36415; 73590; 76801; 80053; 81001; 81025; 83690; 84702; 85025; 93005; 96361; 96374; 99284; A9270; 81003; 87086

== ENCOUNTER 2020-11-17 13:42 | Outpatient (CLI) | payer MEDICAID ==
[2020-11-17 14:23] VITALS: BP 121/84
[2020-11-17 14:35] LABS: MUDS CUTOFF CONCENTRATIONS CUTOFF CONC BELOW:
[2020-11-17 14:39] LABS: BILIRUBIN,URINE NEGATIVE (NEGATIVE); GLUCOSE, URINE (UA) NEGATIVE (NEGATIVE); KETONES,URINE (UA) NEGATIVE (NEGATIVE); LEUKOCYTE ESTERASE, URINE MODERATE (NEGATIVE); NITRITE,URINE NEGATIVE (NEGATIVE); OCCULT BLOOD,URINE NEGATIVE (NEGATIVE); PROTEIN,URINE NEGATIVE (NEGATIVE); UROBILINOGEN,URINE 0.2 (NORMAL) E.U./dL (NORMAL)
[2020-11-17 14:51] LABS: CLARITY,URINE HAZY (CLEAR)
[2020-11-17 14:52] LABS: BACTERIA,URINE Moderate /HPF (None Seen); RBC,URINE 0-5 /HPF (0-5); SQUAMOUS EPITHELIAL CELL,UR MANY Squamous (<= Few)
[2020-11-17 14:53] LABS: MUCUS,URINE Moderate Strands; TRICHOMONAS,URINE PRESENT (None Seen)
[2020-11-17 14:54] LABS: AMPHETAMINE SCREEN,URINE NEGATIVE (NEGATIVE); BENZODIAZEPINES SCREEN, URINE NEGATIVE (NEGATIVE); COCAINE SCREEN URINE NEGATIVE (NEGATIVE); METHADONE SCREEN, URINE NEGATIVE (NEGATIVE); METHAMPHETAMINES SCREEN, URINE NEGATIVE (NEGATIVE); OPIATE SCREEN, URINE NEGATIVE (NEGATIVE); OXYCODONE SCREEN, URINE NEGATIVE (NEGATIVE); PROPOXYPHENE SCREEN, URINE NEGATIVE (NEGATIVE); TRICYCLIC ANTIDEPRESSANT,URINE NEGATIVE (NEGATIVE)
[2020-11-17 14:57] LABS: CREATININE,URINE 107.2 mg/dL; PROTEIN/CREATININE RATIO,URINE 0.1 (<=0.2)
[2020-11-17 15:02] LABS: BASOPHILS # (AUTO) 0.1 10^3/uL (0.0-0.1); BASOPHILS % (AUTO) 0.4 %; EOSINOPHILS # (AUTO) 0.1 10^3/uL (0.0-0.7); HGB - HEMOGLOBIN 12.3 g/dL (12.0-16.0); LYMPHOCYTES # (AUTO) 1.5 10^3/uL (1.5-3.5); LYMPHOCYTES % (AUTO) 10.9 %; MEAN CORPUSCULAR HEMOGLOBIN 30.4 pg (27.0-31.0); MEAN CORPUSCULAR HGB CONC 33.5 g/dL (32.0-36.0); MEAN CORPUSCULAR VOLUME 90.8 fL (81.0-99.0); MEAN PLATELET VOLUME 9.7 fL (7.9-10.8); MONOCYTES # (AUTO) 0.7 10^3/uL (0.0-1.0); MONOCYTES % (AUTO) 5.1 %; NEUTROPHILS % (AUTO) 81.7 %; PLT - PLATELET COUNT 332 10^3/uL (130-450); RED BLOOD COUNT 4.04 10^6/uL (4.20-5.40); RED CELL DISTRIBUTION WIDTH 13.8 % (12.0-15.0); WHITE BLOOD COUNT 13.4 x10^3/uL (4.8-10.8)
[2020-11-17 15:13] LABS: ALBUMIN 3.5 g/dL (3.2-5.5); BILIRUBIN,TOTAL 0.4 mg/dL (0.2-1.0); CALCIUM 9.3 mg/dL (8.5-10.3); CREATININE 0.5 mg/dL (0.4-1.0)
[2020-11-17 15:14] LABS: CREATININE 0.4 mg/dL (0.4-1.0); URIC ACID 3.9 mg/dL (2.6-7.2)
--- NOTE | 2020-11-17 17:40 | PROCEDURE REPORT ---
- HPI Diagnosis/Indication for NST: Other (Elevated blood pressure at home) Current EDU 12/16/20 Gestation 35 Weeks and 6 Days 4 Para 2 Vital Signs Temperature 98.2 F 11/17/20 14:22 Heart Rate 96 11/17/20 14:22 Respiratory Rate 16 11/17/20 14:22 Blood Pressure 121/84 H 11/17/20 14:22 O2 Saturation 99 11/17/20 14:22 Temperature 98.2 F 11/17/20 14:22 Heart Rate 96 11/17/20 14:22 Respiratory Rate 16 11/17/20 14:22 Blood Pressure 121/84 H 11/17/20 14:22 O2 Saturation 99 11/17/20 14:22 - NST Procedure NST Procedure Start Date 11/17/20 Start Time 14:00 Stop Time 14:20 Vibroacoustic Stimulation Used No Patient States Movement Yes - Results and Plan Findings/Impression: Baseline: 150bpm Accelerations: present Decelerations: absent Variability; moderate changes over time: none [place]: no contractions Impression: category 1 NST Final diagnosis: elevated BP without preeclampsia. Pt has had preeclampsia in the past, took BP at home where she reported 160/90s. To RN denies KUMAR, visual changes, or upper abd pain. BP here all normal. Normal P:c ratio and PIH labs. Pt without care. Dated by US. NOB labs obtained, Trich +, called in metronidazole 500mg bid for 7 days. F/u 2d in OB clinic. Preeclampsia and labor precautions given.
[2020-11-17 20:00] LABS: HEMOGLOBIN A1c% 5.5 % (4.27-6.07)
[2020-11-18 14:57] LABS: HEPATITIS B SURFACE ANTIGEN NON-REACTIVE (NON-REACTIVE)
[2020-11-18 15:16] LABS: HIV AG/AB 4TH GEN NON-REACTIVE (NON-REACTIVE)
== END 2020-11-17 16:15 | disposition home or self-care (01) ==
LOC: WFO 13:42 → FBP 13:45 → WFO 16:15
PROVIDERS: ATTEND Obstetrics & Gynecology
DX: O09.33 Supervision of pregnancy with insufficient antenatal care, third trimester (principal); O98.313 Other infections with a predominantly sexual mode of transmission complicating pregnancy, third trimester; A59.01 Trichomonal vulvovaginitis; Z86.79 Personal history of other diseases of the circulatory system; Z3A.35 35 weeks gestation of pregnancy
CPT/HCPCS: 80053; 80306; 81001; 81003; 82565; 82570; 83036; 84156; 84450; 84460; 84550; 85025; 86762; 86780; 86787; 86850; 86900; 86901; 87086; 87340; 87389; 87491; 87591; 87661; 87797; 99212

== ENCOUNTER 2020-11-19 01:11 | Outpatient (CLI) | payer MEDICAID ==
[2020-11-19] MEDS ORDERED: NIFEdipine ER 30 MG TABLET PO ONE (01:28)
[2020-11-19 02:10] LABS: RUPTURE OF MEMBRANES PLUS NEGATIVE (NEGATIVE)
[2020-11-19] MEDS ORDERED: NIFEdipine 10 MG CAPSULE PO ONE ×2 (02:18→03:00)
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
[2020-11-19 07:19] VITALS: BP 120/66
--- NOTE | 2020-11-19 08:10 | PROCEDURE REPORT ---
- HPI Diagnosis/Indication for NST: Other (leaking of fluid) Current EDU 12/15/20 Gestation 36 Weeks and 2 Days 3 Para 2 Vital Signs Temperature 98.2 F 11/19/20 01:30 Heart Rate 86 11/19/20 01:30 Respiratory Rate 20 11/19/20 01:30 Blood Pressure 143/96 H 11/19/20 01:30 O2 Saturation 100 11/19/20 01:30 Temperature 98.2 F 11/19/20 01:30 Heart Rate 103 H 11/19/20 03:00 Respiratory Rate 18 11/19/20 03:00 Blood Pressure 120/66 11/19/20 03:00 O2 Saturation 100 11/19/20 01:30 - NST Procedure NST Procedure Start Time 14:00 Stop Time 14:20 - Results and Plan Findings/Impression: Baseline: BPM 120 Variability: Moderate Accelerations: Present Decelerations: Absent Trends in FHR over time: change in baseline from 120 to 140 [place] contractions in 10 minutes: 3 Impression: reactive Category 1 NST Pt arrived complaining of leaking of fluid. Has trich diagnoses a few days ago, gc/ct are pending. With valsalva no fluid was seen, is nitrizine negative, ROM plus test was negative. Patient kathrine on monitor but not feeling them. SVE 1cm and long at start and again at end of triage visit. One mildly elevated BP, PIH labs were normal 2d ago, pt without KUMAR, visual changes, or upper abdominal pain. Final diagnosis: trichomonis vaginitis
== END 2020-11-19 03:30 | disposition home or self-care (01) ==
LOC: WFO 01:11 → FBP 01:23 → WFO 03:30
PROVIDERS: ATTEND Obstetrics & Gynecology
DX: O98.313 Other infections with a predominantly sexual mode of transmission complicating pregnancy, third trimester (principal); A59.01 Trichomonal vulvovaginitis; Z3A.36 36 weeks gestation of pregnancy
CPT/HCPCS: 84112; 99213; A9270

== ENCOUNTER 2020-11-24 02:52 | Outpatient (CLI) | payer MEDICAID | END 2020-11-24 02:53 | disposition critical access hospital (66) | LOC: EMS 02:52 | PROVIDERS: ATTEND Surgery | DX: O46.90 Antepartum hemorrhage, unspecified, unspecified trimester (principal); Z3A.00 Weeks of gestation of pregnancy not specified | CPT/HCPCS: A0425; A0427; A0999 ==

== ENCOUNTER 2020-11-24 03:01 | Inpatient (IN) | payer MEDICAID ==
[2020-11-24] MEDS ORDERED: OXYTOCIN 10 UNIT/ML VIAL IM PRN (03:11)
[2020-11-24] MEDS ORDERED: SODIUM CHLORIDE FLUSH 0.9% 10 ML SYRINGE IVP PRN (03:11)
[2020-11-24] MEDS ORDERED: LIDOCAINE-MPF 1% 30 ML VIAL ID PRN (03:11)
[2020-11-24] MEDS ORDERED: miSOPROStoL 200 MCG TABLET BC PRN (03:11)
[2020-11-24] MEDS ORDERED: CARBOPROST TROMETHAMINE 250 MCG/ML AMP IM PRN (03:11)
[2020-11-24] MEDS ORDERED: TRANEXAMIC ACID 1,000 MG in SODIUM CHLORIDE 0.9% 100ML 100 ML IV PRN (03:11)
[2020-11-24] MEDS ORDERED: METHYLERGONOVINE 0.2 MG/ML VIAL IM PRN (03:11)
[2020-11-24] MEDS ORDERED: OXYTOCIN/SODIUM CHLORIDE 500 ML IV PRN ×2 (03:11→06:53)
[2020-11-24 03:49] LABS: BASOPHILS # (AUTO) 0.1 10^3/uL (0.0-0.1); BASOPHILS % (AUTO) 0.5 %; EOSINOPHILS # (AUTO) 0.1 10^3/uL (0.0-0.7); EOSINOPHILS % (AUTO) 0.9 %; HGB - HEMOGLOBIN 11.3 g/dL (12.0-16.0); LYMPHOCYTES # (AUTO) 2.1 10^3/uL (1.5-3.5); LYMPHOCYTES % (AUTO) 14.4 %; MEAN CORPUSCULAR HEMOGLOBIN 30.5 pg (27.0-31.0); MEAN CORPUSCULAR HGB CONC 33.5 g/dL (32.0-36.0); MEAN CORPUSCULAR VOLUME 90.8 fL (81.0-99.0); MEAN PLATELET VOLUME 9.6 fL (7.9-10.8); MONOCYTES % (AUTO) 6.8 %; NEUTROPHILS # (AUTO) 11.1 10^3/uL (1.5-6.6); NEUTROPHILS % (AUTO) 76.7 %; PLT - PLATELET COUNT 323 10^3/uL (130-450); RED BLOOD COUNT 3.71 10^6/uL (4.20-5.40); RED CELL DISTRIBUTION WIDTH 13.6 % (12.0-15.0); WHITE BLOOD COUNT 14.5 x10^3/uL (4.8-10.8)
[2020-11-24] MEDS ORDERED: OXYTOCIN 10 UNIT/ML VIAL ONE ×3 (03:54→07:33)
[2020-11-24] MEDS ORDERED: miSOPROStoL 200 MCG TABLET ONE ×2 (03:54→05:31)
[2020-11-24] MEDS ORDERED: TRANEXAMIC ACID 1,000 MG/10 ML VIAL ONE (03:55)
[2020-11-24] MEDS ORDERED: fentaNYL 100 MCG/2 ML VIAL IVP PRN ×2 (03:56→06:58)
[2020-11-24] MEDS ORDERED: OXYTOCIN/SODIUM CHLORIDE 500 ML IV ONE (03:57)
[2020-11-24] MEDS ORDERED: LACTATED RINGERS 1,000 ML IV SCH ×3 (04:00→07:00)
[2020-11-24 04:02] LABS: ALBUMIN 3.1 g/dL (3.2-5.5); ALBUMIN/GLOBULIN RATIO 0.9 (1.0-2.2); BILIRUBIN,TOTAL 0.4 mg/dL (0.2-1.0); CALCIUM 8.6 mg/dL (8.5-10.3); CREATININE 0.5 mg/dL (0.4-1.0); TOTAL PROTEIN 6.5 g/dL (6.7-8.2)
[2020-11-24 04:35] LABS: MUDS CUTOFF CONCENTRATIONS CUTOFF CONC BELOW:
[2020-11-24 04:39] LABS: CREATININE,URINE 136.9 mg/dL; PROTEIN/CREATININE RATIO,URINE 10.3 (<=0.2)
[2020-11-24 04:41] LABS: C. PNEUMONIAE- RESP PCR PANEL NOT DETECTED
[2020-11-24 04:46] LABS: AMPHETAMINE SCREEN,URINE NEGATIVE (NEGATIVE); BENZODIAZEPINES SCREEN, URINE NEGATIVE (NEGATIVE); COCAINE SCREEN URINE NEGATIVE (NEGATIVE); METHADONE SCREEN, URINE NEGATIVE (NEGATIVE); METHAMPHETAMINES SCREEN, URINE NEGATIVE (NEGATIVE); OPIATE SCREEN, URINE NEGATIVE (NEGATIVE); OXYCODONE SCREEN, URINE NEGATIVE (NEGATIVE); PROPOXYPHENE SCREEN, URINE NEGATIVE (NEGATIVE); TRICYCLIC ANTIDEPRESSANT,URINE NEGATIVE (NEGATIVE)
[2020-11-24] MEDS ORDERED: METHYLERGONOVINE 0.2 MG/ML VIAL ONE (05:31)
[2020-11-24] MEDS ORDERED: CARBOPROST TROMETHAMINE 250 MCG/ML AMP IM ONE (05:31)
[2020-11-24] MEDS ORDERED: fentaNYL 100 MCG/2 ML VIAL ONE ×2 (05:33→07:48)
[2020-11-24] MEDS ORDERED: HYDROmorphone 1 MG/ML CARPUJECT ONE (05:35)
[2020-11-24] MEDS ORDERED: ceFAZolin 1 GM VIAL ONE (05:42)
[2020-11-24] MEDS ORDERED: PROPOFOL 200 MG/20 ML VIAL IVP ONE (05:42)
[2020-11-24] MEDS ORDERED: SUCCINYLCHOLINE 200 MG/10 ML VIAL ONE (05:42)
[2020-11-24] MEDS ORDERED: GLYCOPYRROLATE 1 MG/5 ML VIAL ONE (05:42)
[2020-11-24] MEDS ORDERED: ROPIVACAINE 0.5% PF 20 ML AMPULE ONE (06:02)
[2020-11-24] MEDS ORDERED: DEXAMETHASONE 4 MG/ML VIAL ONE (06:04)
[2020-11-24] MEDS ORDERED: ONDANSETRON 4 MG/2 ML VIAL ONE (06:32)
[2020-11-24] MEDS ORDERED: LACTATED RINGERS 1,000 ML IV ONE (06:46)
[2020-11-24] MEDS ORDERED: SIMETHICONE CHEW 80 MG TABLET PO PRN (06:53)
[2020-11-24] MEDS ORDERED: ONDANSETRON ODT 4 MG TABLET TL PRN (06:53)
[2020-11-24] MEDS ORDERED: HYDROmorphone 0.5 MG/0.5 ML SYRINGE IVP PRN (06:58)
[2020-11-24] MEDS ORDERED: ONDANSETRON 4 MG/2 ML VIAL IVP PRN (06:58)
[2020-11-24] MEDS ORDERED: MORPHINE 2 MG/ML CARPUJECT IVP PRN (06:58)
[2020-11-24] MEDS ORDERED: ATROPINE ABBOJECT 1 MG/10 ML SYRINGE IVP PRN (06:58)
[2020-11-24] MEDS ORDERED: NALOXONE 0.4 MG/ML VIAL IVP PRN (06:58)
--- NOTE | 2020-11-24 06:58 | ANESTHESIA ---
Pre-Anesthesia VS, & Labs - Diagnosis Placental abruption - Procedure primary C/S Vital Signs: Temp Pulse Resp BP Pulse Ox 36.7 C 82 16 137/95 H 11/24/20 05:50 11/24/20 05:50 11/24/20 05:50 11/24/20 05:50 Height: 5 ft 2 in Weight (kg): 74.843 kg Body Mass Index: 30.2 BMI Classification: Obese - NPO Other - Is Patient ?: Yes - Lab Results Current Lab Results: Laboratory Tests 11/24/20 03:59: Urine Opiates Screen NEGATIVE, Ur Oxycodone Screen NEGATIVE, Urine Methadone Screen NEGATIVE, Ur Propoxyphene Screen NEGATIVE, Ur Barbiturates Screen NEGATIVE, Ur Tricyclics Screen NEGATIVE, Ur Phencyclidine Scrn NEGATIVE, Ur Amphetamine Screen NEGATIVE, U Methamphetamines Scrn NEGATIVE, U Benzodiazepines Scrn NEGATIVE, Urine Cocaine Screen NEGATIVE, U Cannabinoids Screen POSITIVE H 11/24/20 03:41: Sodium 135, Potassium 3.6, Chloride 106, Carbon Dioxide 18 L, Anion Gap 11.0, BUN 6, Creatinine 0.5, Estimated GFR (MDRD) 145, Glucose 95, Calcium 8.6, Total Bilirubin 0.4, AST 18, ALT 10, Alkaline Phosphatase 145 H, Total Protein 6.5 L, Albumin 3.1 L, Globulin 3.4, Albumin/Globulin Ratio 0.9 L 11/24/20 03:41: WBC 14.5 H, RBC 3.71 L, Hgb 11.3 L, Hct 33.7 L, MCV 90.8, MCH 30.5, MCHC 33.5, RDW 13.6, Plt Count 323, MPV 9.6, Neut # (Auto) 11.1 H, Lymph # (Auto) 2.1, [place] # (Auto) 1.0, Eos # (Auto) 0.1, Baso # (Auto) 0.1, Absolute Nucleated RBC 0.00, Nucleated RBC % 0.0 11/24/20 03:41: Blood Type O POSITIVE, Antibody Screen NEGATIVE, Crossmatch IS Only See Detail Fish Bones: 11/24/20 03:41 11/24/20 03:41 Home Medications and Allergies Active Medications Acetaminophen (Acetaminophen 500 Mg Tablet) 1,000 mg PO Q8H DREW Carboprost Tromethamine (Carboprost Tromethamine 250 Mcg/Ml Amp) 250 mcg IM Q15M PRN PRN Reason: Step 4: Hemorrhage protocol Stop: 11/29/20 03:13 Docusate Sodium (Docusate Sodium 100 Mg Capsule) 100 mg PO BID [facility] Fentanyl (Fentanyl 100 Mcg/2 Ml Vial) 50 mcg IVP Q1H PRN PRN Reason: PAIN Last Admin: 11/24/20 04:06 Dose: 50 mcg Documented by: Oxytocin/Sodium Chloride (Pitocin/Sodium Chloride) 500 mls @ 999 mls/hr IV PRN PRN; Protocol PRN Reason: POST- HEMORR PREVENTION Stop: 11/29/20 03:13 Tranexamic Acid 1,000 mg/ (Sodium Chloride) 110 mls @ 660 mls/hr IV .ONCE PRN PRN Reason: EBL >1200mL and within 3hr Stop: 11/29/20 03:13 Lactated Ringer's (Lr) 1,000 mls @ 150 mls/hr IV .Q6H40M [facility] Last Admin: 11/24/20 04:08 Dose: 150 mls/hr Documented by: Lactated Ringer's (Lr) 1,000 mls @ 100 mls/hr IV .Q10H DREW Oxytocin/Sodium Chloride (Pitocin/Sodium Chloride) 500 mls @ 999 mls/hr IV PRN PRN; Protocol PRN Reason: POST- HEMORR PREVENTION Ibuprofen (Ibuprofen 600 Mg Tablet) 600 mg PO Q6H [facility] Ketorolac Tromethamine (Ketorolac 30 Mg/Ml Vial) 30 mg IVP Q6H [facility] Stop: 11/25/20 01:01 Lidocaine HCl (Lidocaine-Mpf 1% 30 Ml Vial) 30 ml ID .ONCE PRN PRN Reason: PERINEAL REPAIR Stop: 11/29/20 03:13 Methylergonovine Maleate (Methylergonovine 0.2 Mg/Ml Vial) 0.2 mg IM .ONCE PRN PRN Reason: Step 2: Hemorrhage protocol Stop: 11/29/20 03:13 Misoprostol (Misoprostol 200 Mcg Tablet) 800 mcg BC .ONCE PRN PRN Reason: Step 3: Hemorrhage protocol Stop: 11/29/20 03:13 Ondansetron HCl (Ondansetron Odt 4 Mg Tablet) 4 mg TL Q4H PRN PRN Reason: Nausea / Vomiting Oxycodone HCl (Oxycodone 5 Mg Tablet) 5 mg PO Q4HR PRN PRN Reason: PAIN Oxytocin (Oxytocin 10 Unit/Ml Vial) 10 unit IM .ONCE PRN PRN Reason: Step one: If no IV access Stop: 11/29/20 03:13 Sertraline HCl (Sertraline 50 Mg Tablet) 100 mg PO DAILY DREW Simethicone (Simethicone Chew 80 Mg Tablet) 80 mg PO TID PRN PRN Reason: Gas Sodium Chloride (Sodium Chloride Flush 0.9% 10 Ml Syringe) 10 ml IVP PRN PRN PRN Reason: NEEDED PER PROVIDER ORDERS Sodium Chloride (Sodium Chloride Flush 0.9% 10 Ml Syringe) 10 ml IVP 0100,0900,1700 DREW Sodium Chloride (Sodium Chloride Flush 0.9% 10 Ml Syringe) 10 ml IVP 0100,0900,1700 DREW Sodium Chloride (Sodium Chloride Flush 0.9% 10 Ml Syringe) 10 ml IVP PRN PRN PRN Reason: NEEDED PER PROVIDER ORDERS Allergies/Adverse Reactions: Allergies Allergy/AdvReac Type Severity Reaction Status Date / Time lamotrigine [From Lamictal] Allergy Rash Verified 05/02/20 04:16 Anes History & Medical History - Anesthetic History Anesthesia Complications: reports: No previous complications - Medical History Cardiovascular: reports: None Pulmonary: reports: Asthma Gastrointestinal: reports: None, Other Urinary: reports: None Neuro: reports: None Musculoskeletal: reports: None Endocrine/Autoimmune: reports: None Blood Disorders: reports: Anemia Skin: reports: None Smoking Status: Current every day smoker Psychosocial: reports: Depression, Anxiety, Substance abuse History of Cancer?: No - Surgical History General: Cholecystectomy Eyes Ears Nose Throat (EENT): Tonsil/Adenoidectomy Exam General: Alert, Oriented x3, Severe distress Dental: Poor dentition Mouth Openin Fingerbreadth Mallampati classification: III Thyromental Distance: 4-6 cm Mental/Cognitive Status: Alert/Oriented X3, Normal for patient Plan Anesthesia Type: General (Emergency c/s. History obtained from medical record and brief interview with patient.), Transverse Abdominis Plane (TAP) Block (Bilateral) Consent for Procedure(s) Verified and Reviewed: No Code Status: Attempt Resuscitation ASA classification: 3-Severe systemic disease Is this case an emergency?: Yes
[2020-11-24] MEDS: fentaNYL 100 MCG/2 ML VIAL ONE ×3 (07:00→07:45)
--- NOTE | 2020-11-24 07:13 | HISTORY & PHYSICAL EXAMINATION ---
Admit History - Visit Reason Visit Reason: Bleeding - heavy - : 3 Parity: 2 Care: positive: None Risk/History: positive: No care, induced HTN, Pre- eclampsia Smoking Status: Current every day smoker - Mother's Labs Mother's Blood Type: positive: O Mother's RH: positive: Positive GBS: positive: Group B Step Negative Rubella Status: positive: Immune - Other Maternal History Other Maternal History: Patient is a 30 yo at 36+6 wga by 7 week us hwho arrived by ambulance with heavy vaginal bleeding. Patient reports that she was woken from sleep by the sensation that she was wetting herself. She woke up in a pool of blood and had more blood in the toilet after voiding. She called and ambulance. She is 36+6 wga with no care. Records show an attempt to schedule PNC in late October and met some obstacles with her insurance. She was seen in triage twice last week and had mildly elevated blood pressures but normal PIH labs. She reported BPs in the 160s on her 11/17/2020 presentation but blood pressures were normal at that time. Review of her records does show two episodes of mild range blood pressures after 20 wga, giving her the diagnosis of gestational hypertension. No PIH symptoms or lab abnormalities She has a hx of PSA, including methamphetamine but had a negative UDS last week (positive only for THC). Also negative at presentation today. Has been treated for trichomonas as seen in urine. No GCCT results at this time. Reports no sexual activity during this . Has had multiple suicide attempts with an in-patient hospitalization. Reports she is very stable from a mental health standpoint. Upon presentation, patient was in a lot of discomfort. This stopped shortly after admit. Checking SVE a second time resulted in instigating her symptoms again. PMH: Depression Multiple suicide attempts with ASA overdose Pre-eclampsia is first PSH: Hysteroscopy Cholecystectomy T&A OBHX: G1: Delivered [place] via IOL for pre-eclampsia G2: at 37 weeks in [place] G3: current Denies hx of HSV Undertreatment for trichomonas SOC HX: Living on [facility]. Originally from here. [place]oved to [place] to be with FOB of older gloryren. Returned home recently Mother has custody of two children T: hx of 1/2 ppd, not addressed during intake E: not addressed D: Hx of meth use, now with THC only on UDS PNL: Dating is by 6w5d us on 05/02/2020--> ETELVINA 12/16/2020 O pos/Rub imm Hep B sAg neg, HIV neg, RPR NR VZV non-immune Genetic screening not done FAS not done Formal US at bedside today showed no previa and JAMES 10.8 HSV: denies GBS neg 11/17/2020 Trich on recent UA; on last dose of medication Meds/Allgy - Home Medications Home Medications: Ambulatory Orders Medication Instructions Recorded Confirmed Nitrofurantoin Monohyd/M-Cryst 100 mg PO BID #10 capsule 05/02/20 [Macrobid 100 mg Capsule] Ondansetron Odt [Zofran] 4 mg TL Q6H PRN #10 tablet 05/02/20 - Allergies Allergies/Adverse Reactions: Allergies Allergy/AdvReac Type Severity Reaction Status Date / Time lamotrigine [From Lamictal] Allergy Rash Verified 05/02/20 04:16 Review of Systems - Other Findings Other Findings: As per HPI, otherwise remaining systems are negative Physical - Abdominal Exam Vital Signs: Temp Pulse Resp BP Pulse Ox 98.1 F 82 16 137/95 H 11/24/20 05:50 11/24/20 05:50 11/24/20 05:50 11/24/20 05:50 Contraction Frequency (min/apart): Irritable to Q3-4 Contraction Intensity: positive: Moderate Uterine Resting Tone: positive: Soft - Monitoring Heart Rate Baseline: 150 mod haley no accels, period with intermittent variables Strip Review: positive: Category II - Presentation Presentation: positive: Vertex - Vaginal Exam Membranes: positive: Membranes intact Dilation (in cm): 3 Effacement (%): long Station: positive: -3 Cervical Position: positive: Midposition - Other Notes Labor Progress Note/Additional Text: GEN: At presentation, appeared to be in distress with poor tolerance of us probe. The calmed down and appeared to be in NAD HEENT: NCAT CV: RR RESP: nl effort ABD: initially tender to palpation, then non-tender. TTP returned after movingn to OR [employer]: Initially minimal VB. SVE 3/long/high/firm Bleeding increased while conversing with patient Unable to complete ROM plus Negative ferning GCCT collected Formal US ruled out previa prior to SVE and JAMES 10.8 Monitoring was Cat II with periods of Cat I. After calling CS, fetalheart rate dropped to 70s intermittently Plan for Labor - Plan For Labor Plan for Labor: 30 yo at36+6 with vaginal bleeding Patient was observed while evaluation was performed Formal us ruled out previa and JAMES was 10.8 At initial presentation, VB was light Unclear whether gush of bloody fluid was PROM. -Negative ferning GHTN: mild range blood pressures -Cannto assess urine protein b/c urine contaminated with blood -Remainder of PIH labs wnl CONCERN FOR ABRUPTION: After a period of calm, patient started passing more blood Cat I tracing remote from delivery; CS was called Written, informed consent was obtained. Proceeded to OR for urgent Once in OR, heart rate was in the 70s and decision was made to proceed with emergent CS Please see OR report. In patient care
[2020-11-24] MEDS: HYDROmorphone 0.5 MG/0.5 ML SYRINGE ONE ×2 (07:24→07:30)
[2020-11-24] MEDS ORDERED: HYDROmorphone 0.5 MG/0.5 ML SYRINGE ONE (07:26)
--- NOTE | 2020-11-24 07:34 | OPERATIVE REPORT ---
Operative Report - General Admit Date: 11/24/20 Procedure Date: 11/24/20 Planned Procedure: Urgent converted to emergent Pre-Op Diagnosis: IUP at 36+6 wga, GHTN, suspected abruption, scant PNC Procedure Performed: Emergent primary low transverse Post Op Diagnosis: Same and acute blood loss anemia - Procedure Note Primary Surgeon: Yair Mccarthy MD Secondary Surgeon: Familia Vaz MD Anesthesia Provider: Lane Awad CRNA Anesthesia Technique: General ET tube Pathology: Placenta to pathology IV Fluids (mL): 0 (Transfused one unit PRBC. Anesthesia report pending. ) Estimated Blood Loss (mL): 1,500 Urine Output (mL): 0 (Will update as anesthesia report is pending) Indications: 30 yo at 36+6 wga with scant care presented with vaginal bleeding that increased in volume followed with distress remote from delivery. Decision was made to proceed with urgent, then converted to emergent, low transverse . Findings: Large clots extruded from uterus at time of uterine incision. Female in vertex presentation with Apgars 6/8, gases pending. Normal appearing uterus, tubes, and ovaries. Complications: Transfused 1 unit PRBC due to large volume blood loss in setting of presumed abruption. - Other Other Information/Narrative: Risks benefits and alternatives of the procedure were discussed. Written informed consent was obtained. Patient was taken to the operating room where heart tones were in the 70s. She was prepped preliminarily with chloraprep while she was prepared for surgery. Renner was placed while patient was awake, SCDs were placed. Additional betadine splash was applied and she was then draped in the usual sterile fashion in the dorsal supine position with a leftward tilt. Cefazolin 2 g IV was given as a preoperative antibiotic. Expedited preoperative timeout was performed. Patient was then underwent general anesthesia with endotracheal intubation. A Pfannenstiel incision was made in the skin with a scalpel and carried through the underlying layer of fascia in a combination of sharp and blunt dissection. The fascia was incised in the midline, and the incision was extended laterally with the Lewis scissors. The Vidal-Oakes maneuver was used for the remainder of the abdominal entry, with manual stretching of the fascial opening, and the rectus muscles were then in the midline manually, and the peritoneum was entered manually. The peritoneal incision was extended superiorly and inferiorly with good visualization of the bladder. The bladder that blade was then inserted. A bladder flap was not created. The lower uterine segment of the uterus was identified, and incised in a transverse fashion with a scalpel. The uterus was entered bluntly. The uterine incision was extended in a craniocaudal fashion by manual stretch. The bladder blade was removed. The was delivered from from vertex position. Immediate cord clamping was performed. The cord was clamped x2 and cut. The was handed off to the waiting pediatricians. The placenta was removed with manual expression. The uterus was exteriorized and cleared of all clots clots and debris via manual swipe using Ray-Belle x2. The uterine incision was then repaired in a running locked fashion using 0 Vicryl suture. The incision was reinforced with a running imbricating layer again using 0-Vicryl suture. Excellent hemostasis was obtained. The uterus was returned to the abdomen. The gutters were cleared of all clots and debris. The pelvis was irrigated with warm normal saline. The uterine defect was well visualized in normal anatomic position it was noted again to be hemostatic. The peritoneum was then reapproximated with 2-0 Vicryl in a running fashion. The rectus muscles were then reapproximated using interrupted [id number] sutures using 2-0 Chromic. Good hemostasis was noted. The fascia was then closed using 0 Vicryl in a running fashion starting from the left lateral edge to the midline. A second suture was used to close the fascia in a running fashion starting from the right lateral edge and meeting in the midline, agian using 0-Vicryl. The subcutaneous tissue was then irrigated and closed using 2-0 chromic in a running subcutaneous suture. Skin was closed in a running subcuticular suture using 4-0 Monocryl. Steri-Strips were applied to reinforce the incsion and dressing was applied. Procedure was well-tolerated. Complicated by klarge EBL in the setting of presumed placental abruption. Patient was transfused 1 unit PRBC prior intraoperatively. A soft sponge lap and needle counts were correct x2. An abdominal x-ray was perfomed immediately postop showing the abdomen and pelvis to be devoid of retained instruments or sponges. Patient was taken to recovery room in stable condition. Dr. Vaz assisted with retraction, and suturing. MYRA Ahmadi assisted with retraction and delivery of the infant prior to Dr. Vaz arrival.
--- NOTE | 2020-11-24 08:21 | XRAY Report ---
PROCEDURE: Abdomen 1 View X-Ray INDICATIONS: POST OP INST COUNT TECHNIQUE: 1 view of the abdomen were acquired. COMPARISON: None FINDINGS: Surgical changes and devices: Centrally positioned low pelvic catheter, presumably a Renner catheter. Bowel: No pneumoperitoneum. The bowel gas pattern is normal. Soft tissues: No masses; visualized solid organ contours appear normal in size. No suspicious abdom inal calcifications. Bones: No suspicious bony abnormalities. IMPRESSION: The exam is centered on the pelvis, with field of view of imaging from approximately mid L4 inferiorly. In this [id number] no foreign body beyond what appears to be a Renner catheter is i dentified. Reviewed by: Antonio Soliz MD on 11/24/2020 8:19 AM PST Approved by: Antonio Soliz MD on 11/24/2020 8:19 AM PST Station ID: [id number]
[2020-11-24] MEDS: SODIUM CHLORIDE FLUSH 0.9% 10 ML SYRINGE IVP SCH ×2 (08:23→14:35)
[2020-11-24] MEDS: DOCUSATE SODIUM 100 MG CAPSULE PO SCH ×2 (08:23→19:52)
[2020-11-24] MEDS: ACETAMINOPHEN 500 MG TABLET PO SCH ×2 (08:23→16:44)
[2020-11-24] MEDS: KETOROLAC 30 MG/ML VIAL IVP SCH ×3 (08:24→20:04)
[2020-11-24] MEDS: SODIUM CHLORIDE FLUSH 0.9% 10 ML SYRINGE IVP PRN ×2 (08:24→14:35)
[2020-11-24] MEDS: oxyCODONE 5 MG TABLET PO PRN ×4 (08:38→23:20)
--- NOTE | 2020-11-24 08:42 | Ultrasound Report ---
PROCEDURE: OB Limited INDICATIONS: placental placement and amniotic fluid level OUTSIDE/PRIOR DATING DATA: Last menstrual period (LMP): Not available. LMP-based estimated date of delivery (ETELVINA): Not available. First dating scan (date and location): 05/02/2020. Estimated date of delivery (ETELVINA) from first dating scan: 12/21/2020. TECHNIQUE: Real-time scanning was performed of the fetus, with image documentation. Endovaginal scanning: Not needed. COMPARISON: 05/02/2020 FINDINGS: A single living intrauterine gestation is present. Presentation: Vertex Placenta: Placental position is anterior. Amniotic fluid index: 10.8 cm, 21.2 percentile for gestational age. . Estimated gestational age from initial scan: 36 weeks 1 day. IMPRESSION: Limited emergent examination, terminated by the emergency room physician supervising the emergent ultrasound. heart rate was not obtained, "per provider". According to the sonographe r the patient is in active labor. Provider was present and directed the items of concern for limited evaluation. Reviewed by: Antonio Soliz MD on 11/24/2020 8:41 AM PST Approved by: Antonio Soliz MD on 11/24/2020 8:41 AM PST Station ID: [id number]
[2020-11-24] MEDS ORDERED: SODIUM CHLORIDE FLUSH 0.9% 10 ML SYRINGE IVP SCH (09:00)
[2020-11-24] MEDS ORDERED: SERTRALINE 50 MG TABLET PO SCH (09:00)
[2020-11-24 09:56] LABS: BASOPHILS % (AUTO) 0.3 %; EOSINOPHILS % (AUTO) 0.3 %; HGB - HEMOGLOBIN 9.9 g/dL (12.0-16.0); LYMPHOCYTES % (AUTO) 2.4 %; MEAN CORPUSCULAR HEMOGLOBIN 29.7 pg (27.0-31.0); MEAN CORPUSCULAR VOLUME 90.1 fL (81.0-99.0); MEAN PLATELET VOLUME 9.7 fL (7.9-10.8); MONOCYTES % (AUTO) 1.9 %; PLT - PLATELET COUNT 239 10^3/uL (130-450); RED BLOOD COUNT 3.33 10^6/uL (4.20-5.40); RED CELL DISTRIBUTION WIDTH 14.6 % (12.0-15.0); WHITE BLOOD COUNT 27.9 x10^3/uL (4.8-10.8)
[2020-11-24 09:58] LABS: ABNORMAL LYMPHS % (MANUAL) 0 %
--- NOTE | 2020-11-24 09:59 | ANESTHESIA POST OP EVALUATION ---
Anesthesia Post Eval - Post Anesthesia Eval Vitals: Last Vital Signs Temp 36.9 C 11/24/20 07:54 Pulse 102 H 11/24/20 07:54 Resp 16 11/24/20 07:54 BP 135/89 H 11/24/20 07:54 Pulse Ox 98 11/24/20 07:54 CV Function Including HR & BP: positive: Stable Pain Control: positive: Satisfactory Nausea & Vomiting: positive: Negative Mental Status: positive: Patient Participates Respiratory Status: Airway Patent Hydration Status: Satisfactory Anesthesia Complications: positive: None
[2020-11-24 10:15] LABS: BAND NEUTROPHILS % (MANUAL) 3 %; LYMPHOCYTES # (MANUAL) 1.1 10^3/uL (1.5-3.5); LYMPHOCYTES % (MANUAL) 4 %; MONOCYTES # (MANUAL) 0.3 10^3/uL (0.0-1.0)
[2020-11-24] MEDS ORDERED: oxyCODONE 5 MG TABLET PO ONE ×2 (10:15→19:30)
[2020-11-24 10:16] LABS: DIFFERENTIAL COMMENT MANUAL DIFFERENTIAL; PLATELET ESTIMATE, MANUAL NORMAL (130-450,000) (NORMAL); PLATELET MORPHOLOGY NORMAL APPEARANCE (NORMAL); RBC MORPHOLOGY (MULTIPLE) NORMAL APPEARANCE (NORMAL)
[2020-11-24 18:46] LABS: BASOPHILS # (AUTO) 0.1 10^3/uL (0.0-0.1); BASOPHILS % (AUTO) 0.2 %; HGB - HEMOGLOBIN 8.5 g/dL (12.0-16.0); LYMPHOCYTES # (AUTO) 1.5 10^3/uL (1.5-3.5); LYMPHOCYTES % (AUTO) 6.3 %; MEAN CORPUSCULAR HEMOGLOBIN 30.7 pg (27.0-31.0); MEAN CORPUSCULAR HGB CONC 34.7 g/dL (32.0-36.0); MEAN CORPUSCULAR VOLUME 88.4 fL (81.0-99.0); MEAN PLATELET VOLUME 9.6 fL (7.9-10.8); MONOCYTES # (AUTO) 1.1 10^3/uL (0.0-1.0); MONOCYTES % (AUTO) 4.6 %; NEUTROPHILS # (AUTO) 20.5 10^3/uL (1.5-6.6); NEUTROPHILS % (AUTO) 88.3 %; PLT - PLATELET COUNT 233 10^3/uL (130-450); RED BLOOD COUNT 2.77 10^6/uL (4.20-5.40); RED CELL DISTRIBUTION WIDTH 14.4 % (12.0-15.0); WHITE BLOOD COUNT 23.2 x10^3/uL (4.8-10.8)
[2020-11-24 19:21] LABS: DIFFERENTIAL COMMENT MANUAL=AUTO DIFF; PLATELET ESTIMATE, MANUAL NORMAL (130-450,000) (NORMAL); PLATELET MORPHOLOGY NORMAL APPEARANCE (NORMAL); RBC MORPHOLOGY (MULTIPLE) NORMAL APPEARANCE (NORMAL)
[2020-11-25] MEDS: ACETAMINOPHEN 500 MG TABLET PO SCH ×3 (02:52→18:29)
[2020-11-25] MEDS: KETOROLAC 30 MG/ML VIAL IVP SCH (02:52)
[2020-11-25] MEDS: oxyCODONE 5 MG TABLET PO PRN ×6 (02:59→18:29)
[2020-11-25 06:11] LABS: BASOPHILS # (AUTO) 0.1 10^3/uL (0.0-0.1); BASOPHILS % (AUTO) 0.3 %; EOSINOPHILS # (AUTO) 0.1 10^3/uL (0.0-0.7); EOSINOPHILS % (AUTO) 0.7 %; LYMPHOCYTES # (AUTO) 3.1 10^3/uL (1.5-3.5); LYMPHOCYTES % (AUTO) 18.7 %; MEAN CORPUSCULAR HEMOGLOBIN 30.7 pg (27.0-31.0); MEAN CORPUSCULAR HGB CONC 33.5 g/dL (32.0-36.0); MEAN CORPUSCULAR VOLUME 91.6 fL (81.0-99.0); NEUTROPHILS % (AUTO) 73.4 %; PLT - PLATELET COUNT 213 10^3/uL (130-450); RED BLOOD COUNT 2.61 10^6/uL (4.20-5.40); RED CELL DISTRIBUTION WIDTH 14.6 % (12.0-15.0); WHITE BLOOD COUNT 16.3 x10^3/uL (4.8-10.8)
[2020-11-25] MEDS: DOCUSATE SODIUM 100 MG CAPSULE PO SCH ×2 (08:30→20:01)
[2020-11-25] MEDS: IBUPROFEN 600 MG TABLET PO SCH ×3 (08:34→20:01)
[2020-11-25] MEDS ORDERED: ceFAZolin 1 GM VIAL IVP STA (09:06)
[2020-11-25] MEDS ORDERED: oxyCODONE 5 MG TABLET PO PRN (16:57)
[2020-11-25] MEDS ORDERED: FERRIC GLUCONATE 125 MG in SODIUM CHLORIDE 0.9% 100ML 100 ML IV ONE (21:54)
--- NOTE | 2020-11-25 21:57 | PROVIDER PROGRESS NOTE ---
Subjective - Prog Note Date Prog Note Date: 11/25/20 Prog Note Time: 08:45 - Subjective Subjective: Late entry Patient has been having some trouble with pain management. Occasionally needs additional dose of oxycodone at 2 hours post administration of her Q4H dosing. Also taking ibuprofen and acetominophen. BF going well. Had SW consult yesterday. Had been up and OOB with no dizziness or lightheadedness. Has voided and is tolerating po. Mild lochia. Objective - Vital Signs/Intake & Output Reviewed Vital Signs: Yes Vital Signs: Vital Signs x48h Temp Pulse Resp BP Pulse Ox 11/25/20 20:05 97.7 F 89 16 111/68 99 11/25/20 16:07 98.2 F 91 16 111/72 100 Intake & Output: Intake & Output 11/22/20 11/23/20 11/24/20 11/25/20 23:59 23:59 23:59 23:59 Intake Total 2500 710 Output Total 975 2275 Balance 1525 -1565 - Objective General Appearance: positive: No acute distress Respiratory: positive: No respiratory distress, Breath sounds nml Cardiovascular: positive: Regular rate & rhythm Abdomen: positive: Other (Soft and appropriately tender. ND Dressing CDI) Skin: positive: Color nml Extremities: positive: Non-tender, No pedal edema - Lab Results Fish Bones: 11/25/20 06:00 11/24/20 03:41 Other Labs: Lab Results x24hrs 11/25/20 Range/Units 06:00 WBC 16.3 H (4.8-10.8) x10^3/uL RBC 2.61 L (4.20-5.40) 10^6/uL Hgb 8.0 L (12.0-16.0) g/dL Hct 23.9 L (37.0-47.0) % MCV 91.6 (81.0-99.0) fL MCH 30.7 (27.0-31.0) pg MCHC 33.5 (32.0-36.0) g/dL RDW 14.6 (12.0-15.0) % Plt Count 213 (130-450) 10^3/uL MPV 10.0 (7.9-10.8) fL Neut # (Auto) 12.0 H (1.5-6.6) 10^3/uL Lymph # (Auto) 3.1 (1.5-3.5) 10^3/uL Carson # (Auto) 1.0 (0.0-1.0) 10^3/uL Eos # (Auto) 0.1 (0.0-0.7) 10^3/uL Baso # (Auto) 0.1 (0.0-0.1) 10^3/uL Absolute Nucleated RBC 0.00 x10^3/uL Nucleated RBC % 0.0 /100WBC Assessment/Plan - Problem List (1) delivery delivered Impression: POD#1 s/p emergency LTCS 2/2 abruption -Progresing along goals for discharge -Encourage ambulation -Voiding, tolerating po, minimal lochia -Working on pain management -Given additional dose of cefazolin as ppx given atypical surgical prep SW consult completed (2) Acute blood loss anemia Impression: HCT stable overnight Will given IV iron as patient is asymptomatic Has 1 units crossmatched available if symptoms develop or there is further drift in HCT DC on oral iron Cont inpatient stay
[2020-11-26] MEDS: oxyCODONE 5 MG TABLET PO PRN ×4 (00:33→11:58)
[2020-11-26] MEDS: SODIUM CHLORIDE FLUSH 0.9% 10 ML SYRINGE IVP SCH (00:34)
[2020-11-26] MEDS: IBUPROFEN 600 MG TABLET PO SCH ×2 (01:49→08:06)
[2020-11-26] MEDS: ACETAMINOPHEN 500 MG TABLET PO SCH ×2 (01:49→09:46)
[2020-11-26] MEDS: DOCUSATE SODIUM 100 MG CAPSULE PO SCH (08:06)
--- NOTE | 2020-11-26 08:59 | Discharge Plan ---
Discharge Plan Problem Reviewed?: Yes Disposition: Home, Self Care Condition: Good Prescriptions: Docusate Sodium 100Mg Capsule [Colace 100Mg Capsule] 100 - 200 mg PO BID PRN #60 capsule PRN Reason: Constipation Ibuprofen [Motrin] 600 mg PO Q6H PRN #90 tab PRN Reason: Pain Gabapentin [Neurontin] 100 mg PO TID PRN #30 capsule PRN Reason: Pain oxyCODONE [Roxicodone] 5 mg PO Q4H PRN #24 tablet PRN Reason: Pain Acetaminophen [Tylenol] 650 mg PO Q6H PRN #90 tablet PRN Reason: PRN PAIN &/OR FEVER Diet: Regular Activity Restrictions: Additional Comments Shower Restrictions: Yes (OK to shower. No tub baths for 4 weeks) Additional Instructions or Follow Up instructions: Nothing in the vagina for 6 weeks: No intercourse, tampons, douching Call for: -Fever greater than 100.5 -Pain that does not improve with pain medication -Heavy bleeding in which you are soaking a pad an hour for 2 hours in a row -Incision becomes hot, hard, red, starts to open, or leaks foul smelling fluid No lifting more than 10# for 4 weeks [address] while on narcotics Ok to shower. Let water run over the incision. Do not soap, scrub, or apply lotion. Pat dry with a clean towel or [place]arna a hair colorist. The surgical stickers will start to peel off and you can remove them when they do. Otherwise, the provider will remove them at your one week follow-up appointment. OK to use an unscented sanitary napkin or clean washcloth to keep the incision dry if the belly folds over the incision. No Smoking: If you smoke, Please STOP! Call for help. Follow-up with: Antoinette Mccarthy MD [Provider Admit Priv/Credential] -
--- NOTE | 2020-11-26 09:08 | PROVIDER PROGRESS NOTE ---
Subjective - Prog Note Date Prog Note Date: 11/26/20 Prog Note Time: 09:06 - Subjective Subjective: Patient is up and ambulating, tolerating po, and voiding. Pain is well managed with pain medications. Feels ready to DC. BF with formula. Baby maintaining w eight. Objective - Vital Signs/Intake & Output Reviewed Vital Signs: Yes Vital Signs: Vital Signs x48h Temp Pulse Resp BP Pulse Ox 11/26/20 08:43 98.2 F 98 16 130/87 H 100 Intake & Output: Intake & Output 11/23/20 11/24/20 11/25/20 11/26/20 23:59 23:59 23:59 23:59 Intake Total 2500 710 110 Output Total 975 2275 Balance 1525 -1565 110 - Objective General Appearance: positive: No acute distress Respiratory: positive: No respiratory distress Cardiovascular: positive: Other (RR) Abdomen: positive: Other (Appropriately tender. FF below umbi. ND/soft. Dressing removed. Steris in place. CDI) Skin: positive: Color nml, Warm, Dry Extremities: positive: No pedal edema, Pedal edema Neurologic/Psychiatric: positive: Oriented x3 - Lab Results Fish Bones: 11/25/20 06:00 11/24/20 03:41 Other Labs: Lab Results x24hrs 11/24/20 Range/Units 03:41 Crossmatch IS Only See Detail Assessment/Plan - Problem List (1) delivery delivered Impression: POD#2: Meeting goals for discharge Routine instructions given Rx for iron given Iron infusion given last night FU in one week for incision check. O pos
--- NOTE | 2020-11-26 09:10 | DISCHARGE SUMMARY ---
"Discharge Summary Admit Date: 11/24/20 Discharge Date: 11/26/20 Discharging Provider: Fabio Condition at Discharge: Good Discharge Disposition: 01 Home, Self Care - DIAGNOSES Admission Diagnoses: IUP at - HPI History of Present Illness: Patient is a 30 yo at 36+6 wga by 7 week us who arrived by ambulance with heavy vaginal bleeding. Patient reported that she was woken from sleep by the sensation that she was wetting herself. She woke up in a pool of blood and had more blood in the toilet after voiding. She called an ambulance. She is 36+6 wga with no care. Records show an attempt to schedule PNC in late October and met some obstacles with her insurance. She was seen in triage twice last week and had mildly elevated blood pressures but normal PIH labs. She reported BPs in the 160s on her 11/17/2020 presentation but blood pressures were normal at that time. Review of her records does show two episodes of mild range blood pressures after 20 wga, giving her the diagnosis of gestational hypertension. No PIH symptoms or lab abnormalities She has a hx of PSA, including methamphetamine but had a negative UDS last week (positive only for THC). Also negative at presentation today. Has been treated for trichomonas as seen in urine. No GCCT results at this time. Reports no sexual activity during this . Has had multiple suicide attempts with an in-patient hospitalization. Reports she is very stable from a mental health standpoint. Upon presentation, patient was in a lot of discomfort. This stopped shortly after admit. Checking SVE a second time resulted in instigating her symptoms again. Proceeded with emergency . PMH: Depression Multiple suicide attempts with ASA overdose Pre-eclampsia is first PSH: Hysteroscopy Cholecystectomy T&A OBHX: G1: [place]ivered in [place] via IOL for pre-eclampsia G2: at 37 weeks in [place] G3: current Denies hx of HSV Undertreatment for trichomonas SOC HX: Living on [place]. Originally from [place]. Moved to [place] to be with FOB of older children. Returned home recently Mother has custody of two children T: hx of 1/2 ppd, not addressed during intake E: not addressed D: Hx of meth use, now with THC only on UDS PNL: Dating is by 6w5d us on 05/02/2020--> ETELVINA 12/16/2020 O pos/Rub imm Hep B sAg neg, HIV neg, RPR NR VZV non-immune Genetic screening not done FAS not done Formal US at bedside today showed no previa and JAMES 10.8 HSV: denies GBS neg 11/17/2020 Trich on recent UA; on last dose of medication - CONSULTS | PROCEDURES Consultations: Social Work Procedures: Primary low transverse - HOSPITAL COURSE Hospital Course: 30 yo at 36+6 wga with scant care presented with vaginal bleeding that increased in volume followed with distress remote from delivery. Decision was made to proceed with urgent, then converted to emergent, low transverse . Large clots extruded from uterus at time of uterine incision. Female infant in vertex presentation with Apgars 6/8, gases pending. Normal appearing uterus, tubes, and ovaries. Transfused 1 unit PRBC due to large volume blood loss in setting of presumed abruption. Post operative course was uncomplicated. Iron infusion given on POD#1. Consultation with Social Work completed. Routine discharge instructions given. Discharged to home on POD#2. O positive. - ALLERGIES Allergies/Adverse Reactions: Allergies Allergy/AdvReac Type Severity Reaction Status Date / Time lamotrigine [From Lamictal] Allergy Rash Verified 05/02/20 04:16 - MEDICATIONS Home Medications: Ambulatory Orders Medication Instructions Recorded Confirmed Nitrofurantoin Monohyd/M-Cryst 100 mg PO BID #10 capsule 05/02/20 [Macrobid 100 mg Capsule] Ondansetron Odt [Zofran] 4 mg TL Q6H PRN #10 tablet 05/02/20 Acetaminophen [Tylenol] 650 mg PO Q6H PRN #90 tablet 11/26/20 Docusate Sodium 100Mg Capsule 100 - 200 mg PO BID PRN #60 capsule 11/26/20 [Colace 100Mg Capsule] Ferrous Sulfate 325 mg PO DAILY #60 tablet. 11/26/20 Gabapentin [Neurontin] 100 mg PO TID PRN #30 capsule 11/26/20 Ibuprofen [Motrin] 600 mg PO Q6H PRN #90 tab 11/26/20 oxyCODONE [Roxicodone] 5 mg PO Q4H PRN #24 tablet 11/26/20 oxyCODONE [Roxicodone] 2.5 - 5 mg PO Q4H PRN #24 tablet 12/03/20 - LABS Result Diagrams: 11/25/20 06:00 11/24/20 03:41 - FOLLOW UP Follow Up: [address] Mccarthy - TIME SPENT Time Spent in Discharge (Minutes): 30"
[2020-11-26 12:21] VITALS: BP 126/64
--- NOTE | 2020-11-26 12:55 | Labor Flowsheet ---
Labor Flowsheet Datetime Report Generated by CPN: 11/26/2020 12:55 Datetime: 11/24/2020 04:43 Comments: to OR for Datetime: 11/24/2020 04:40 VITAL SIGNS NBP Sys/Amaya/Mean (mmHg): 111 : 79 : 85 Pulse: 84 SpO2 (%): 100 UTERINE ACTIVITY Monitor Mode: External Frequency (min): 1-2 Duration (sec): 40-100 Pattern: Tachysystole: > 5 Contractions in 10 Minutes ASSESSMENT A Monitor Mode: External US FHR Baseline Rate : 145 Variability: Moderate 6-25 bpm Accelerations: 15X15 Decelerations: Variable Category: Category II COMMUNICATION LaborFlag: Labor Datetime: 11/24/2020 04:25 Stage of : Labor Quality: Strong Actions for Decelerations: Blood Pressure Vaginal Bleeding: Moderate Datetime: 11/24/2020 03:45 VAGINAL EXAM Dilatation (cm): 3.0 Effacement (%): 20 Exam by: Dr Mccarthy Membrane Status: Intact Membranes Rupture Method: Spontaneous Amniotic Fluid Amount: None Datetime: 11/24/2020 03:30 Resting Tone (Palpate): Relaxed
== END 2020-11-26 12:14 | disposition home or self-care (01) | DRG 787 ==
LOC: WFO 03:01 → FBP 03:02 → WFO 03:10 → FBP 03:11
PROVIDERS: ADMIT Obstetrics & Gynecology; ATTEND Obstetrics & Gynecology
PROC: 10D00Z1 Extraction of Products of Conception, Low, Open Approach (ICD-10-PCS; principal; 2020-11-24 05:23)
DX: O45.93 Premature separation of placenta, unspecified, third trimester (principal); O99.324 Drug use complicating childbirth; O98.32 Other infections with a predominantly sexual mode of transmission complicating childbirth; D62 Acute posthemorrhagic anemia; O99.02 Anemia complicating childbirth; O13.4 Gestational [pregnancy-induced] hypertension without significant proteinuria, complicating childbirth; O76 Abnormality in fetal heart rate and rhythm complicating labor and delivery; Z37.0 Single live birth; F12.90 Cannabis use, unspecified, uncomplicated; A59.01 Trichomonal vulvovaginitis; Z3A.36 36 weeks gestation of pregnancy; Z91.5 Personal history of self-harm; Z87.59 Personal history of other complications of pregnancy, childbirth and the puerperium
CPT/HCPCS: 0202U; 36415; 74018; 76815; 80053; 80306; 81599; 82570; 84156; 85025; 86850; 86900; 86901; 86920; A9270; J0330; J1170; J2916; J7120; P9016; 82803; 85014; 85018; 87491; 87591; 87661

== ENCOUNTER 2021-01-11 07:02 | Emergency (ER) | payer MEDICAID ==
--- NOTE | 2021-01-11 07:35 | ED Physician Documentation ---
PD HPI HEENT - Stated complaint Stated Complaint: TOOTH PX - Chief complaint Chief Complaint: Heent - History obtained from History obtained from: Patient - History of Present Illness Timing - onset: How many weeks ago (2) Timing - duration: Weeks (2) Timing - details: Gradual onset, Still present (much worse the past 2 days) Location: Tooth (left upper tooth pain for couple months, but now consistent with some gum swelling and pain to the left sinus area for several days. Also with right eye discharge since yesterday. No general URI symptoms.) Improves: No: Medication (took Ibuprofen without improvement.) Worsens: Position Associated symptoms: No: Fever, Congestion, Facial swelling, Cough Similar symptoms before: Has not had sx before Review of Systems Constitutional: denies: Fever, Chills Eyes: reports: Discharge, Irritation. denies: Decreased vision, Photophobia Ears: denies: Ear pain Nose: denies: Rhinorrhea / runny nose, Congestion Throat: reports: Dental pain / toothache. 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 11/26/20 Gabapentin [Neurontin] 100 mg PO TID PRN #30 capsule 11/26/20 Ibuprofen [Motrin] 600 mg PO Q6H PRN #90 tab 11/26/20 oxyCODONE [Roxicodone] 5 mg PO Q4H PRN #24 tablet 11/26/20 oxyCODONE [Roxicodone] 2.5 - 5 mg PO Q4H PRN #24 tablet 12/03/20 Acetaminophen [Acetaminophen Extra 1,000 mg PO Q8H PRN #60 tab 12/18/20 Strength] oxyCODONE [Roxicodone] 2.5 - 5 mg PO Q4H PRN #24 tab 12/18/20 Clindamycin [Cleocin] 300 mg PO TID 7 Days #20 cap 01/11/21 Erythromycin Base [Erythromycin 1 applic OP QID #3.5 gm 01/11/21 Ophthalmic Ointment] Ondansetron Odt [Zofran] 4 mg TL Q6H PRN #18 tablet 01/11/21 oxyCODONE [Roxicodone] 5 mg PO Q4-6H PRN #15 tablet 01/11/21 - Allergies Allergies/Adverse Reactions: Allergies Allergy/AdvReac Type Severity Reaction Status Date / Time lamotrigine [From Lamictal] Allergy Rash Verified 01/11/21 07:19 - Social History Does the pt smoke?: Yes Smoking Status: Current every day smoker Does the pt drink ETOH?: No Does the pt have substance abuse?: Yes Substance Use and Type: Marijuana - Immunizations Immunizations are current?: Yes - POLST Patient has POLST: No POLST Status: Full Code PD ED PE NORMAL - Vitals Vital signs reviewed: Yes - General General: Alert and oriented X 3, Well developed/nourished, Other (appears uncomfortable and in pain in face. ) - HEENT HEENT: PERRL, EOMI (lower conjunctiva with some redness and discharge. Not coming from medial canthus. ), Pharynx benign. No: Dentition benign (caries left upper molar with tenderness to palpation. Minimal swelling of gum without fluctuance. max sinus tender to percussion. ) - Neck Neck: Supple, no meningeal sign, No adenopathy - Cardiac Cardiac: RRR, No murmur - Respiratory Respiratory: Clear bilaterally - Derm Derm: Normal color, Warm and dry Results - Vitals Vitals: Vital Signs - 24 hr 01/11/21 01/11/21 07:07 08:06 Temperature 36.6 C 36.8 C Heart Rate 89 72 Respiratory 16 22 Rate Blood Pressure 123/93 H 138/101 H O2 Saturation 99 99 Oxygen O2 Source Room air PD MEDICAL DECISION MAKING - ED course Complexity details: reviewed old records ([facility] shows 3 Rx for oxycodone since delivery of child, each for 24 tablets, last one was 12/23/20.) Departure - Departure Disposition: 01 Home, Self Care Clinical Impression: Infected dental caries Conjunctivitis Qualifiers: Conjunctivitis type: acute Acute conjunctivitis type: bacterial Laterality: right Qualified Code(s): H10.31 - Unspecified acute conjunctivitis, right eye Sinusitis Qualifiers: Sinusitis location: maxillary Chronicity: acute Recurrence: non-recurrent Qualified Code(s): J01.00 - Acute maxillary sinusitis, unspecified Condition: Stable Record reviewed to determine appropriate education?: Yes Instructions: ED Abscess Dental Prescriptions: Clindamycin [Cleocin] 300 mg PO TID 7 Days #20 cap Erythromycin Base [Erythromycin Ophthalmic Ointment] 1 applic OP QID #3.5 gm oxyCODONE [Roxicodone] 5 mg PO Q4-6H PRN #15 tablet PRN Reason: Pain Ondansetron Odt [Zofran] 4 mg TL Q6H PRN #18 tablet PRN Reason: Nausea / Vomiting Comments: I think your dental infection likely eroded or spread into the sinus which is not unusual. We will treated with antibiotics as well as continued anti- inflammatories and pain medicine. The eye infection may be unrelated most likely other could be some extension up from the sinus. I would add a topical eye ointment as well. Stay well-hydrated. Ondansetron if needed for nausea. Use some ibuprofen 2 or 3 times a day with food to minimize irritation of the stomach. Add Tylenol 650 mg 4 times a day. To that add oxycodone if needed for pains. Follow-up with the dental clinic for more definitive care of the tooth. Recheck if not improving well over the next 2 to 3 days. Discharge Date/Time: 01/11/21 08:12
[2021-01-11] MEDS ORDERED: KETOROLAC 30 MG/ML VIAL IM STA (07:45)
[2021-01-11] MEDS ORDERED: CLINDAMYCIN 150 MG CAPSULE PO STA (07:45)
[2021-01-11] MEDS ORDERED: ACETAMINOPHEN 325 MG TABLET PO STA (07:45)
[2021-01-11] MEDS ORDERED: ERYTHROMYCIN OPHTH OINT 1 GM TUBE RIGHTEYE STA (07:47)
[2021-01-11] MEDS ORDERED: ONDANSETRON ODT 4 MG TABLET TL STA (07:52)
[2021-01-11 08:09] VITALS: BP 138/101
== END 2021-01-11 08:12 | disposition home or self-care (01) ==
LOC: ED 07:02
DX: K04.7 Periapical abscess without sinus (principal); K02.9 Dental caries, unspecified; H10.31 Unspecified acute conjunctivitis, right eye; J01.00 Acute maxillary sinusitis, unspecified; F17.200 Nicotine dependence, unspecified, uncomplicated
CPT/HCPCS: 96372; 99283; 99284; A9270; J3490; Q0162

== ENCOUNTER 2023-02-06 06:51 | Emergency (ER) | payer MEDICAID ==
[2023-02-06 07:25] VITALS: BP 144/98
--- NOTE | 2023-02-06 07:27 | ED Physician Documentation ---
PD HPI HEENT - Stated complaint Stated Complaint: FACE SWOLLEN/TOOTH PX - Chief complaint Chief Complaint: Heent - History obtained from History obtained from: Patient - History of Present Illness Timing - onset: How many days ago (2-3) Timing - duration: Days Timing - details: Abrupt onset, Still present Location: Tooth (pain and swelling at area of previously lost filling. Increased pain and swelling overnight left lower mouth/maxilla.) Improves: No: Medication Associated symptoms: No: Fever, Congestion Similar symptoms before: Diagnosis (has had dental infections in the past, but this is quicker onset than prior ones.) Recently seen: Not recently seen Review of Systems Constitutional: denies: Fever, Chills Cardiac: denies: Chest pain / pressure Respiratory: denies: Dyspnea, Cough Neurologic: denies: Altered mental status, Headache PD PAST MEDICAL HISTORY - Past Medical History Cardiovascular: None Respiratory: Asthma Neuro: None Endocrine/Autoimmune: None GI: None, 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 : None HEENT: None Psych: Depression, Anxiety, Bipolar disorder, Other Musculoskeletal: None Derm: None - Past Surgical History Past Surgical History: Yes General: 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 11/26/20 Gabapentin [Neurontin] 100 mg PO TID PRN #30 capsule 11/26/20 Ibuprofen [Motrin] 600 mg PO Q6H PRN #90 tab 11/26/20 oxyCODONE [Roxicodone] 5 mg PO Q4H PRN #24 tablet 11/26/20 oxyCODONE [Roxicodone] 2.5 - 5 mg PO Q4H PRN #24 tablet 12/03/20 Acetaminophen [Acetaminophen Extra 1,000 mg PO Q8H PRN #60 tab 12/18/20 Strength] oxyCODONE [Roxicodone] 2.5 - 5 mg PO Q4H PRN #24 tab 12/18/20 Clindamycin [Cleocin] 300 mg PO TID 7 Days #20 cap 01/11/21 Erythromycin Base [Erythromycin 1 applic OP QID #3.5 gm 01/11/21 Ophthalmic Ointment] Ondansetron Odt [Zofran] 4 mg TL Q6H PRN #18 tablet 01/11/21 oxyCODONE [Roxicodone] 5 mg PO Q4-6H PRN #15 tablet 01/11/21 Naproxen 500 mg PO BID #20 tab 02/06/23 Oxycodone HCl/Acetaminophen 1 each PO Q4H PRN #14 tablet 02/06/23 [Percocet 5-325 mg Tablet] clindamycin HCL [Clindamycin HCl] 300 mg PO TID 7 Days #20 cap 02/06/23 - Allergies Allergies/Adverse Reactions: Allergies Allergy/AdvReac Type Severity Reaction Status Date / Time lamotrigine [From Lamictal] Allergy Rash Verified 02/06/23 07:24 - Social History Does the pt smoke?: Yes Smoking Status: Current every day smoker Does the pt drink ETOH?: No Does the pt have substance abuse?: Yes - Immunizations Immunizations are current?: Yes - POLST Patient has POLST: No POLST Status: Full Code PD ED PE NORMAL - Vitals Vital signs reviewed: Yes - General General: Alert and oriented X 3, Well developed/nourished - HEENT HEENT: No: Dentition benign (left lower tooth incisor with missing filling/cavity. Gum buccal side with focal swelling, no drainage, some local fluctuance 1 cm. The mandibular soft tissue with local swelling that is not firm. no fluctuance. ) - Neck Neck: Supple, no meningeal sign, No adenopathy, Other (no neck swelling) - Cardiac Cardiac: No murmur. No: RRR (regular but mild tachycardic) - Respiratory Respiratory: No respiratory distress, Clear bilaterally - Neuro Neuro: Normal speech Results - Vitals Vitals: Vital Signs - 24 hr 02/06/23 07:21 Temperature 37.3 C Heart Rate 107 H Respiratory 16 Rate Blood Pressure 144/98 H O2 Saturation 100 Oxygen O2 Source Room air Procedures - Regional nerve block - Minor Nerve block site: Inferior alveolar Right / left: Left Nerve block anesthesia: Lidocaine 1% Nerve block aftercare: Other (attempted block to help with pain and facilitate incision for drainage. Due to discomfort of the needle insertion, the patient did not tolerate it and unable to hold still. Discontinued the attempt for regional/local anesth, and will defer lancing the abscess.) PD Medical Decision Making - ED course Complexity details: considered differential (has obvious abscess/infedction lower gum and surrounding tissue. there is focal swelling at gum. attempted dental and local block to anesth for pain and to allow incision. 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 she is driving to held any opiates for now. tried local/regional block, and i think incision/drainage would help as well, but too uncomfortable for her, so stopped attempt. I think it can get better without I&D, though some slower. Departure - Departure Disposition: 01 Home, Self Care Clinical Impression: Infected dental caries, Periapical abscess Condition: Stable Record reviewed to determine appropriate education?: Yes Instructions: ED Dental Abscess Facial Cellulitis Prescriptions: clindamycin HCL [Clindamycin HCl] 300 mg PO TID 7 Days #20 cap Naproxen 500 mg PO BID #20 tab Oxycodone HCl/Acetaminophen [Percocet 5-325 mg Tablet] 1 each PO Q4H PRN #14 tablet PRN Reason: pain Comments: Warm moist towels to the area to help promote blood flow and fight off the infection. Try to promote drainage if it will do some of that. Massage into the area may help that. It is a very sensitive area seeing if it will drain a little bit is a good thing. We will go with antibiotics of clindamycin and anti-inflammatory of naproxen. To that add Tylenol every 4-6 hours if needed for pain or Percocet if needed for worse pain. I would anticipate steady improvement over the next day or 2 and resolved by 3 to 5 days. You subsequently will need to follow-up with a dental clinic of course for more definitive care of the cavity. I sent your prescriptions to your preferred pharmacy, [facility] in [place]. We gave you a few pain pills to start, as the pharmacies will not be open for a few hours. I am prescribing a short course of narcotic pain medication for you. These are potentially dangerous and addictive medications that should be used carefully. These medications may constipate you. Take an [id number] stool softener such as docusate twice daily with plenty of water while taking these medications. If you go 24 hours without a bowel movement, take [id number] MiraLAX, per package instructions. Do not drink or drive while taking these medications. If you received narcotic or sedating medications while in the emergency department do not drive for 24 hours. Store this medication in a safe, secure place and out of reach of children. It is a violation of federal law to give or sell this medication to another person or to use in a manner other than prescribed. The ED will not refill narcotic prescriptions, including prescriptions lost or stolen. You can dispose of unwanted medications at the [facility]'s office or at several pharmacies such as [facility]. Discharge Date/Time: 02/06/23 08:24
[2023-02-06] MEDS ORDERED: IBUPROFEN 600 MG TABLET PO STA (07:33)
[2023-02-06] MEDS ORDERED: ACETAMINOPHEN 325 MG TABLET PO STA (07:33)
[2023-02-06] MEDS ORDERED: CLINDAMYCIN 150 MG CAPSULE PO STA (07:33)
[2023-02-06] MEDS ORDERED: oxyCODONE/ACET 5/325 Prepack 4 PO STA (07:41)
== END 2023-02-06 08:24 | disposition home or self-care (01) ==
LOC: ED 06:51
DX: K04.7 Periapical abscess without sinus (principal); F17.200 Nicotine dependence, unspecified, uncomplicated
CPT/HCPCS: 64400; 99283; A9270

== ENCOUNTER 2023-03-08 08:22 | Emergency (ER) | payer MEDICAID ==
[2023-03-08 08:57] LABS: BASOPHILS % (AUTO) 0.6 %; EOSINOPHILS # (AUTO) 0.3 10^3/uL (0.0-0.7); EOSINOPHILS % (AUTO) 3.9 %; HCT - HEMATOCRIT 36.5 % (37.0-47.0); HGB - HEMOGLOBIN 11.6 g/dL (12.0-16.0); LYMPHOCYTES # (AUTO) 1.6 10^3/uL (1.5-3.5); LYMPHOCYTES % (AUTO) 24.5 %; MEAN CORPUSCULAR HEMOGLOBIN 29.1 pg (27.0-31.0); MEAN CORPUSCULAR HGB CONC 31.8 g/dL (32.0-36.0); MEAN CORPUSCULAR VOLUME 91.7 fL (81.0-99.0); MEAN PLATELET VOLUME 9.5 fL (7.9-10.8); MONOCYTES # (AUTO) 0.4 10^3/uL (0.0-1.0); MONOCYTES % (AUTO) 6.3 %; NEUTROPHILS # (AUTO) 4.1 10^3/uL (1.5-6.6); NEUTROPHILS % (AUTO) 64.4 %; PLT - PLATELET COUNT 298 10^3/uL (130-450); RED BLOOD COUNT 3.98 10^6/uL (4.20-5.40); RED CELL DISTRIBUTION WIDTH 13.5 % (12.0-15.0); WHITE BLOOD COUNT 6.4 x10^3/uL (4.8-10.8)
[2023-03-08 09:46] LABS: ALBUMIN 3.6 g/dL (3.2-5.5); ALBUMIN/GLOBULIN RATIO 1.4 (1.0-2.2); BILIRUBIN,TOTAL 0.5 mg/dL (0.2-1.0); CALCIUM 8.6 mg/dL (8.5-10.3); CREATININE 0.6 mg/dL (0.4-1.0); POTASSIUM 4.1 mmol/L (3.5-5.0); TOTAL PROTEIN 6.1 g/dL (6.7-8.2)
[2023-03-08 10:06] LABS: BILIRUBIN,URINE NEGATIVE (NEGATIVE); GLUCOSE, URINE (UA) NEGATIVE (NEGATIVE); HCG UR QUAL NEGATIVE; KETONES,URINE (UA) NEGATIVE (NEGATIVE); LEUKOCYTE ESTERASE, URINE NEGATIVE (NEGATIVE); NITRITE,URINE NEGATIVE (NEGATIVE); OCCULT BLOOD,URINE NEGATIVE (NEGATIVE); PROTEIN,URINE NEGATIVE (NEGATIVE); UROBILINOGEN,URINE 0.2 (NORMAL) E.U./dL (NORMAL)
[2023-03-08 10:07] LABS: CLARITY,URINE CLEAR (CLEAR)
--- NOTE | 2023-03-08 10:15 | ED Physician Documentation ---
PD HPI ABD PAIN - Stated complaint Stated Complaint: FEELING FAINT/FEMALE - Chief complaint Chief Complaint: Abd Pain - History obtained from History obtained from: Patient - Additional information Additional information: Patient is a 32-year-old male presenting for evaluation with concerns for worms in her stools that she has noticed 2 days ago. She reports that she has not used meth in 1 to 2 months. She reports epigastric abdominal pain. She denies nausea, vomiting, blood in her stools. She states that the worms in her stools look like mucus that are white and are moving. She denies recent antibiotic use, travel or known sick contacts. She has a young child at the bedside with her and denies that the child has been ill recently.She reports multiple loose stools overnight and has been on antibiotics 1 month ago for a dental infection. Patient is eating popcorn During my evaluation. Review of Systems Constitutional: denies: Fever Cardiac: denies: Chest pain / pressure Respiratory: denies: Dyspnea GI: reports: Abdominal Pain (Epigastric). 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 11/26/20 Gabapentin [Neurontin] 100 mg PO TID PRN #30 capsule 11/26/20 Ibuprofen [Motrin] 600 mg PO Q6H PRN #90 tab 11/26/20 oxyCODONE [Roxicodone] 5 mg PO Q4H PRN #24 tablet 11/26/20 oxyCODONE [Roxicodone] 2.5 - 5 mg PO Q4H PRN #24 tablet 12/03/20 Acetaminophen [Acetaminophen Extra 1,000 mg PO Q8H PRN #60 tab 12/18/20 Strength] oxyCODONE [Roxicodone] 2.5 - 5 mg PO Q4H PRN #24 tab 12/18/20 Clindamycin [Cleocin] 300 mg PO TID 7 Days #20 cap 01/11/21 Erythromycin Base [Erythromycin 1 applic OP QID #3.5 gm 01/11/21 Ophthalmic Ointment] Ondansetron Odt [Zofran] 4 mg TL Q6H PRN #18 tablet 01/11/21 oxyCODONE [Roxicodone] 5 mg PO Q4-6H PRN #15 tablet 01/11/21 Naproxen 500 mg PO BID #20 tab 02/06/23 Oxycodone HCl/Acetaminophen 1 each PO Q4H PRN #14 tablet 02/06/23 [Percocet 5-325 mg Tablet] clindamycin HCL [Clindamycin HCl] 300 mg PO TID 7 Days #20 cap 02/06/23 Vancomycin [Vancocin] 125 mg PO Q6HR 10 Days #40 cap 03/08/23 - Allergies Allergies/Adverse Reactions: Allergies Allergy/AdvReac Type Severity Reaction Status Date / Time lamotrigine [From Lamictal] Allergy Rash Verified 03/08/23 08:30 - Social History Does the pt smoke?: Yes Smoking Status: Current every day smoker Does the pt drink ETOH?: No Does the pt have substance abuse?: Yes - Immunizations Immunizations are current?: Yes - POLST Patient has POLST: No POLST Status: Full Code PD ED PE NORMAL - General General: Alert and oriented X 3, No acute distress, Well developed/nourished - HEENT HEENT: Atraumatic - Neck Neck: Supple, no meningeal sign - Cardiac Cardiac: RRR, No murmur - Respiratory Respiratory: No respiratory distress, Clear bilaterally - Abdomen Abdomen: Normal bowel sounds, Soft, Non tender, Non distended - Derm Derm: Warm and dry - Neuro Neuro: Normal speech Results - Vitals Vitals: Vital Signs - 24 hr 03/08/23 03/08/23 08:27 10:23 Temperature 36.4 C L 36.8 C Heart Rate 90 82 Respiratory 16 16 Rate Blood Pressure 127/86 H 124/78 O2 Saturation 100 99 Oxygen O2 Source Room air - Labs Labs: Laboratory Tests 03/08/23 03/08/23 03/08/23 08:47 08:47 09:27 WBC 6.4 RBC 3.98 L Hgb 11.6 L Hct 36.5 L MCV 91.7 MCH 29.1 MCHC 31.8 L RDW 13.5 Plt Count 298 MPV 9.5 Neut # (Auto) 4.1 Lymph # (Auto) 1.6 Ross # (Auto) 0.4 Eos # (Auto) 0.3 Baso # (Auto) 0.0 Absolute Nucleated RBC 0.00 Nucleated RBC % 0.0 Sodium 137 Potassium 4.1 Chloride 106 Carbon Dioxide 25 Anion Gap 6.0 BUN 13 Creatinine 0.6 Estimated GFR (MDRD) 116 Glucose 96 Calcium 8.6 Total Bilirubin 0.5 AST 23 ALT 21 Alkaline Phosphatase 62 Total Protein 6.1 L Albumin 3.6 Globulin 2.5 Albumin/Globulin Ratio 1.4 Lipase 51 Urine Color DARK YELLOW Urine Clarity CLEAR Urine pH 6.0 Ur Specific [place] >=1.030 H Urine Protein NEGATIVE Urine Glucose (UA) NEGATIVE Urine Ketones NEGATIVE Urine Occult Blood NEGATIVE Urine Nitrite NEGATIVE Urine Bilirubin NEGATIVE Urine Urobilinogen 0.2 (NORMAL) Ur Leukocyte Esterase NEGATIVE Ur Microscopic Review NOT INDICATED Urine Culture Comments NOT INDICATED Urine HCG, Qual Stl C. diff Tox B Gene 03/08/23 03/08/23 09:27 09:27 WBC RBC Hgb Hct MCV MCH MCHC RDW Plt Count MPV Neut # (Auto) Lymph # (Auto) Ross # (Auto) Eos # (Auto) Baso # (Auto) Absolute Nucleated RBC Nucleated RBC % Sodium Potassium Chloride Carbon Dioxide Anion Gap BUN Creatinine Estimated GFR (MDRD) Glucose Calcium Total Bilirubin AST ALT Alkaline Phosphatase Total Protein Albumin Globulin Albumin/Globulin Ratio Lipase Urine Color Urine Clarity Urine pH Ur Specific [place] Urine Protein Urine Glucose (UA) Urine Ketones Urine Occult Blood Urine Nitrite Urine Bilirubin Urine Urobilinogen Ur Leukocyte Esterase Ur Microscopic Review Urine Culture Comments Urine HCG, Qual NEGATIVE Stl C. diff Tox B Gene POSITIVE A* PD Medical Decision Making - ED course Complexity details: reviewed results, re-evaluated patient, d/w patient ED course: Patient presenting for evaluation of diarrhea with concerns for parasites in her stool. While, Patient was being evaluated here, CPS presented with a court order for child who is with the patient to be removed. Child was removed By CPS worker with present Without issue. CBC, chemistries, urinalysis and test were reviewed without significant findings. Patient's abdominal exam is benign. She was able to give a stool sample. She understands that we will notify her of any abnormal results and is advised on close follow-up with her PCP. Patient's C. difficile test did return positive after she was discharged. I did attempt to call the patient with results but went directly to voicemail and so I did leave a callback number.There are no other alternate phone numbers listed for her. I also sent a prescription for p.o. vancomycin. [phone] - I attempted to call the patient to review her positive C. difficile results but phone number went directly to voicemail. I did leave a voicemail to call back to the ER. I will send a prescription to the pharmacy on file for vancomycin p.o. Departure - Departure Disposition: Home, Self Care Clinical Impression: Diarrhea, C. difficile diarrhea Condition: Stable Instructions: ED Abdominal Pain Female Non-Specific Abdominal Pain Prescriptions: Vancomycin [Vancocin] 125 mg PO Q6HR 10 Days #40 cap Comments: We are sending your stool for testing to check for infection. We will notify you of any abnormal results. I would recommend close follow-up with your primary care provider. Return to the emergency department if you develop any worsening symptoms such as blood in your stools. Discharge Date/Time: 03/08/23 10:24
[2023-03-08 10:24] VITALS: BP 124/78
== END 2023-03-08 10:24 | disposition home or self-care (01) ==
LOC: ED 08:22
DX: A04.72 Enterocolitis due to Clostridium difficile, not specified as recurrent (principal); F17.200 Nicotine dependence, unspecified, uncomplicated
CPT/HCPCS: 36415; 80053; 81001; 81003; 81025; 83690; 85025; 87045; 87046; 87086; 87177; 87427; 87493; 99283; 99284

== ENCOUNTER 2023-03-09 09:06 | Emergency (ER) | payer MEDICAID ==
[2023-03-09] MEDS ORDERED: VANCOMYCIN 125 MG CAPSULE PO STA (10:04)
--- NOTE | 2023-03-09 10:04 | ED Physician Documentation ---
PD HPI ABD PAIN - Stated complaint Stated Complaint: ABD PX - Chief complaint Chief Complaint: Abd Pain - History obtained from History obtained from: Patient - History of Present Illness Timing - onset: How many days ago (3) Timing - duration: Days (3) Timing - details: Gradual onset, Still present Quality: Cramping, Sharp, Pain Location: All over / everywhere Improved by: BM Worsened by: Position, Palpation Associated symptoms: Nausea, Diarrhea, Other (dark stool). No: Vomiting, Hematemesis, Hematochezia, Hematuria Similar symptoms before: Has not had sx before Recently seen: Emergency Dept - Additional information Additional information: Serena Sanchez is a 32-year-old female who was seen in the emergency department yesterday for abdominal pain and diarrhea. She was diagnosed with C. difficile colitis and a prescription for vancomycin was E scribed. She has not picked up this medicine yet. She became concerned when she developed black stool. She did take a dose of Pepto-Bismol last night. Review of Systems Constitutional: denies: Fever Eyes: denies: Decreased vision Ears: denies: Ear pain Nose: denies: Congestion Throat: denies: Sore throat Respiratory: denies: Cough GI: reports: Abdominal Pain, Nausea, Diarrhea, Bloody / black stool. 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 11/26/20 Gabapentin [Neurontin] 100 mg PO TID PRN #30 capsule 11/26/20 Ibuprofen [Motrin] 600 mg PO Q6H PRN #90 tab 11/26/20 oxyCODONE [Roxicodone] 5 mg PO Q4H PRN #24 tablet 11/26/20 oxyCODONE [Roxicodone] 2.5 - 5 mg PO Q4H PRN #24 tablet 12/03/20 Acetaminophen [Acetaminophen Extra 1,000 mg PO Q8H PRN #60 tab 12/18/20 Strength] oxyCODONE [Roxicodone] 2.5 - 5 mg PO Q4H PRN #24 tab 12/18/20 Clindamycin [Cleocin] 300 mg PO TID 7 Days #20 cap 01/11/21 Erythromycin Base [Erythromycin 1 applic OP QID #3.5 gm 01/11/21 Ophthalmic Ointment] Ondansetron Odt [Zofran] 4 mg TL Q6H PRN #18 tablet 01/11/21 oxyCODONE [Roxicodone] 5 mg PO Q4-6H PRN #15 tablet 01/11/21 Naproxen 500 mg PO BID #20 tab 02/06/23 Oxycodone HCl/Acetaminophen 1 each PO Q4H PRN #14 tablet 02/06/23 [Percocet 5-325 mg Tablet] clindamycin HCL [Clindamycin HCl] 300 mg PO TID 7 Days #20 cap 02/06/23 Vancomycin [Vancocin] 125 mg PO Q6HR 10 Days #40 cap 03/08/23 - Allergies Allergies/Adverse Reactions: Allergies Allergy/AdvReac Type Severity Reaction Status Date / Time lamotrigine [From Lamictal] Allergy Rash Verified 03/09/23 09:13 - Social History Does the pt smoke?: Yes Smoking Status: Current every day smoker Does the pt drink ETOH?: No Does the pt have substance abuse?: Yes - Immunizations Immunizations are current?: Yes - POLST Patient has POLST: No POLST Status: Full Code PD ED PE NORMAL - General General: Alert and oriented X 3, No acute distress, Well developed/nourished - HEENT HEENT: Atraumatic, PERRL, EOMI - Respiratory Respiratory: No respiratory distress - Abdomen Abdomen: Normal bowel sounds, Soft, Non distended, No organomegaly, Other (mild general tenderness no garding or rebound. ) - Back Back: No CVA TTP, No spinal TTP - Derm Derm: Normal color, Warm and dry, No rash - Extremities Extremities: No deformity, No edema - Neuro Neuro: Alert and oriented X 3, metal lather 2-12 intact, No motor deficit, No sensory deficit, Normal speech Eye Opening: Spontaneous Motor: Obeys Commands Verbal: Oriented GCS Score: 15 - Psych Psych: Normal mood, Normal affect Results - Vitals Vitals: Vital Signs - 24 hr 03/09/23 09:11 Temperature 36.6 C Heart Rate 103 H Respiratory 16 Rate Blood Pressure 126/72 O2 Saturation 100 Oxygen O2 Source Room air PD Medical Decision Making - ED course Complexity details: considered differential, d/w patient ED course: 30-year-old female presents to the emergency department with concerns of black stool after being diagnosed with C. difficile colitis. The patient did take a dose of Pepto-Bismol last night. She has been E scribed vancomycin and has not taken a dose of this yet. I discussed with the patient the nature of her infection and the need for the medication and we have given her a dose here in the emergency department. I believe the black stool has to do with the pepto bismol. Departure - Departure Disposition: 01 Home, Self Care Clinical Impression: C. difficile diarrhea Condition: Stable Instructions: Clostridium Difficile Infec Follow-Up: [facility] [place] [Provider Group] Comments: Serena, today it looks like you have C. difficile diarrhea which is an infectious diarrhea that is sometimes associated with antibiotic use. Treatment of this infection is important and complications can happen if it is not treated. We have given you a dose of the vancomycin here today in the emergency department and you will need to filler picker the remainder of the prescription at the pharmacy. I have given you a number of a clinic to follow-up with in [place].
[2023-03-09 10:20] VITALS: BP 144/81
== END 2023-03-09 10:19 | disposition home or self-care (01) ==
LOC: ED 09:06
DX: A04.72 Enterocolitis due to Clostridium difficile, not specified as recurrent (principal); F17.200 Nicotine dependence, unspecified, uncomplicated
CPT/HCPCS: 99282; 99283; J8499

== ENCOUNTER 2023-04-22 13:31 | Emergency (ER) | payer MEDICAID ==
[2023-04-22 13:40] VITALS: BP 123/91
== END 2023-04-22 17:17 | disposition left against medical advice (07) ==
LOC: ED 13:31
DX: Z53.21 Procedure and treatment not carried out due to patient leaving prior to being seen by health care provider (principal)

== ENCOUNTER 2023-11-16 22:39 | Emergency (ER) | payer MEDICAID ==
[2023-11-17] MEDS ORDERED: oxyCODONE/ACET 5/325 Prepack 4 PO STA (01:09)
--- NOTE | 2023-11-17 01:13 | ED Physician Documentation ---
History of Present Illness - Stated complaint Stated Complaint: MOUTH PX - Chief complaint Chief Complaint: Heent - History obtained from History obtained from: Patient - Additonal information Additional information: 33yF with pmh dental caries s/p dental extraction yesterday p/w persistent pain refractory to tylenol. denies temp > 100.4 at home. endorses eye redness X 1 week without vision changes. 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 HEENT: Tonsil/Adenoidectomy - Present Medications Home Medications: Ambulatory Orders Medication Instructions Recorded Confirmed No Known Home Medications 11/16/23 11/16/23 - Allergies Allergies/Adverse Reactions: Allergies Allergy/AdvReac Type Severity Reaction Status Date / Time lamotrigine [From Lamictal] Allergy Rash Verified 11/16/23 22:54 - Social History Does the pt smoke?: Yes Smoking Status: Current every day smoker Does the pt drink ETOH?: No Does the pt have substance abuse?: Yes - Immunizations Immunizations are current?: Yes - POLST Patient has POLST: No POLST Status: Full Code PD ED PE NORMAL - Vitals Vital signs reviewed: Yes - General General: Alert and oriented X 3, No acute distress, Well developed/nourished - HEENT HEENT: Atraumatic, PERRL, EOMI, Other (no abnormal discharge from eyes. no conjunctival injection. poor dentition on oropharyngeal exam. no fluctuance) Results - Vitals Vitals: Vital Signs - 24 hr 11/16/23 22:46 Temperature 36.4 C L Heart Rate 102 H Respiratory 17 Rate Blood Pressure 126/83 H O2 Saturation 98 Oxygen O2 Source Room air PD Medical Decision Making - ED course ED course: 33yF presents with dental pain s/p extraction yesterday refractory to tylenol. also wanted to have her eyes checked since they've been red and irritated. Her exam is benign without signs of abscess, trismus or ludwigs. she does have notably poor dentition however. her ocular exam was normal. Short course of pain meds was provided as prepack in the ED. counseling given. Strict return precautions given. f/u with her dentist was encouraged. Departure - Departure Disposition: 01 Home, Self Care Clinical Impression: Pain, dental Condition: Stable Instructions: Extraction Tooth Mouth Care After Comments: You were seen in the emergency department for dental pain and to check your eyes. You don't have eye infection. You should follow up with your dentist who did the extraction. A short course of pain medicine was provided for you to take home. Please return to the emergency department if you have any new or worsening symptoms or other concerns.
[2023-11-17] MEDS ORDERED: CARBOXYMETHYLCELLULOSE OPHTH DROPS EACHEYE PRN (01:19)
[2023-11-17 01:43] VITALS: BP 123/72; O2SAT 100
== END 2023-11-17 01:37 | disposition home or self-care (01) ==
LOC: ED 22:39
DX: K08.89 Other specified disorders of teeth and supporting structures (principal); F17.200 Nicotine dependence, unspecified, uncomplicated
CPT/HCPCS: 99282; 99283; A9270